=== PATIENT | male | born 1950 | race Caucasian/White ===

== ENCOUNTER 2018-02-28 23:04 | Outpatient (CLI) | payer MEDICARE | END 2018-02-28 23:05 | disposition critical access hospital (66) | LOC: EMS 23:04 | PROVIDERS: ATTEND Surgery | DX: R11.2 Nausea with vomiting, unspecified (principal); R14.0 Abdominal distension (gaseous) | CPT/HCPCS: A0425; A0429 ==

== ENCOUNTER 2018-02-28 23:29 | Inpatient (IN) | payer MEDICARE ==
--- NOTE | 2018-02-28 23:33 | ED Physician Documentation ---
PD HPI ABD PAIN - Stated complaint Stated Complaint: CONSTIPATED - History obtained from History obtained from: Patient, EMS - History of Present Illness Timing - onset: How many days ago (3) Timing - details: Abrupt onset, Still present (progressive bloating and distension of the abdomen), Constant Quality: Cramping, Aching, Pain Location: All over / everywhere Radiation: Lower back. No: Chest, Left flank, Right flank Improved by: Vomiting, Position (knees up on his side). No: Eating Worsened by: Eating, Moving, Position (lying flat or with legs straight), Palpation. No: Breathing Associated symptoms: Nausea, Vomiting (bilious for 3 days), Constipation (firm stools for the past month or so, and had not had BM since the pain started 3 days ago. Tried enema at home without production fo stools.). No: Fever, Hematemesis, Diarrhea Similar symptoms before: Has not had sx before (denies prior abd surgeries. Has constipation at times but has not led to this degree of distension and discomfort.) Recently seen: Not recently seen Review of Systems Constitutional: reports: Myalgias, Fatigue. denies: Fever, Chills Nose: denies: Rhinorrhea / runny nose, Congestion Throat: denies: Sore throat Cardiac: denies: Chest pain / pressure, Palpitations Respiratory: denies: Dyspnea, Cough GI: reports: Abdominal Pain, Abdominal Swelling, Nausea, Vomiting, Constipation. denies: Diarrhea, Hematemesis, Bloody / black stool : denies: Dysuria, Frequency (has had less urination the past 2 days with less oral intake. Trying to drink fluidsa nd soda but has emesis often) Neurologic: reports: Generalized weakness, Focal weakness (since prior CVA with some left weakness since 2008.). denies: Confused, Altered mental status, Headache Psychiatric: denies: Anxiety, Insomnia Endocrine: denies: Easy bruising / bleeding Immunocompromised: denies: Immunocompromised PD PAST MEDICAL HISTORY - Past Medical History Cardiovascular: None Respiratory: None Neuro: CVA Endocrine/Autoimmune: None GI: None : None - Past Surgical History Past Surgical History: No - Allergies Allergies/Adverse Reactions: Allergies Allergy/AdvReac Type Severity Reaction Status Date / Time No Known Drug Allergies Allergy Verified 02/28/18 23:34 - Living Situation Living Situation: reports: With spouse/s.o. Living Arrangement: reports: At home - Social History Does the pt smoke?: Yes Smoking Status: Current every day smoker Does the pt drink ETOH?: No Does the pt have substance abuse?: No - Family History Family history: reports: Non contributory PD ED PE NORMAL - Vitals Vital signs reviewed: Yes - General General: Alert and oriented X 3, No acute distress. No: Well developed/ nourished (this and seems frail. Somewhat unkempt. ) - HEENT HEENT: Atraumatic, PERRL (nonicteric), Pharynx benign. No: Moist mucous membranes - Neck Neck: Supple, no meningeal sign, No adenopathy - Cardiac Cardiac: No: RRR (tachycardic with some frequent PACs and occasional PVCs. ), No murmur - Respiratory Respiratory: Clear bilaterally - Abdomen Abdomen: Other (Very distended abdomen with tympany to percussion. General tenderness. No obvious hernias in inguinal area. ). No: Normal bowel sounds ( tympanitic and loud. ), Soft - Male Male : Other (rectal was minimal soft stool in vault. No obvious impaction. Guiac negative. ) - Rectal Rectal: Other (minimal stool in vault ) - Back Back: No CVA TTP - Derm Derm: Normal color, Warm and dry - Extremities Extremities: No deformity, No tenderness to palpate, No edema, No calf tenderness / cord - Neuro Neuro: Other (left arm and leg with weakness against gravity. ) Results - Vitals Vitals: Vital Signs - 24 hr 02/28/18 02/28/18 03/01/18 23:35 23:39 00:57 Temperature 36.9 C Heart Rate 42 L 68 140 H Respiratory 14 16 Rate Blood Pressure 100/66 98/62 O2 Saturation 95 92 03/01/18 01:01 Temperature Heart Rate 147 H Respiratory Rate Blood Pressure 105/67 O2 Saturation Oxygen O2 Source Room air - EKG (time done) 01:23 Rate: Rate (enter#) (139) Rhythm: Sinus tachycardia [place]: Normal Intervals: Normal IA, Other (frequent PACs/PVcs) QRS: Normal Ischemia: Non specific changes - Labs Labs: Laboratory Tests 03/01/18 03/01/18 03/01/18 00:05 00:05 00:05 WBC 20.8 H RBC 5.65 Hgb 15.6 Hct 46.7 MCV 82.7 MCH 27.6 MCHC 33.3 RDW 16.4 H Plt Count 647 H MPV 7.3 L Neut # 17.7 H Lymph # 1.9 Harvey # 1.1 H Eos # 0.0 Baso # 0.0 Absolute Nucleated RBC 0.00 Nucleated RBC % 0.0 PT INR Sodium 135 Potassium 3.2 L Chloride 87 L Carbon Dioxide 27 Anion Gap 21.0 H BUN 111 H* Creatinine 3.6 H Estimated GFR (MDRD) 17 L Glucose 187 H Lactic Acid 1.6 Calcium 8.9 Magnesium 2.7 Total Bilirubin 1.0 AST 21 ALT 27 Alkaline Phosphatase 63 Total Protein 8.0 Albumin 3.3 Globulin 4.7 H Albumin/Globulin Ratio 0.7 L Lipase 18 L Ethyl Alcohol < 5.0 03/01/18 00:05 WBC RBC Hgb Hct MCV MCH MCHC RDW Plt Count MPV Neut # Lymph # Harvey # Eos # Baso # Absolute Nucleated RBC Nucleated RBC % PT 12.1 INR 1.1 Sodium Potassium Chloride Carbon Dioxide Anion Gap BUN Creatinine Estimated GFR (MDRD) Glucose Lactic Acid Calcium Magnesium Total Bilirubin AST ALT Alkaline Phosphatase Total Protein Albumin Globulin Albumin/Globulin Ratio Lipase Ethyl Alcohol - Rads (name of study) abd CT Radiology: Prelim report reviewed, Discussed with rads (obstruction vs ileus/ pseudoobstruction with transition at splenic flexure but no mass/scarring seen in the area. ), EMP read contemporaneously (bowel obstruction) PD MEDICAL DECISION MAKING - ED course Complexity details: reviewed results, re-evaluated patient, considered differential, d/w patient Departure - Departure Disposition: [facility] DC/Xfer Clinical Impression: Acute renal insufficiency, Dehydration Abdominal pain Qualifiers: Abdominal location: generalized Qualified Code(s): R10.84 - Generalized abdominal pain Vomiting Qualifiers: Vomiting type: bilious vomiting Nausea presence: with nausea Qualified Code(s) : R11.14 - Bilious vomiting Bowel obstruction Qualifiers: Intestinal obstruction type: unspecified Intestinal obstruction extent: complete Qualified Code(s): K56.601 - Complete intestinal obstruction, unspecified as to cause Condition: Stable Record reviewed to determine appropriate education?: Yes
[2018-03-01] MEDS ORDERED: ONDANSETRON 4 MG/2 ML VIAL IVP STA
[2018-03-01] MEDS ORDERED: MORPHINE 10 MG/ML VIAL IVP STA
[2018-03-01] MEDS ORDERED: FAMOTIDINE 20 MG/2 ML VIAL IVP STA
[2018-03-01] MEDS ORDERED: SODIUM CHLORIDE 0.9% 1,000 ML IV ONE ×3 (00:01→01:59)
[2018-03-01 00:25] LABS: WHITE BLOOD COUNT 20.8 x10^3/uL (4.8-10.8)
[2018-03-01 00:30] LABS: BASOPHILS % (AUTO) 0.2 %; EOSINOPHILS % (AUTO) 0.1 %; HGB - HEMOGLOBIN 15.6 g/dL (14.0-18.0); LYMPHOCYTES # (AUTO) 1.9 10^3/uL (1.5-3.5); MEAN CORPUSCULAR HEMOGLOBIN 27.6 pg (27.0-31.0); MEAN CORPUSCULAR HGB CONC 33.3 g/dL (32.0-36.0); MEAN CORPUSCULAR VOLUME 82.7 fL (80.0-94.0); MEAN PLATELET VOLUME 7.3 fL (7.4-11.4); MONOCYTES # (AUTO) 1.1 10^3/uL (0.0-1.0); MONOCYTES % (AUTO) 5.2 %; NEUTROPHILS # (AUTO) 17.7 10^3/uL (1.5-6.6); NEUTROPHILS % (AUTO) 85.5 %; PLT - PLATELET COUNT 647 10^3/uL (130-450); RED BLOOD COUNT 5.65 10^6/uL (4.70-6.10); RED CELL DISTRIBUTION WIDTH 16.4 % (12.0-15.0)
[2018-03-01 00:56] LABS: ALBUMIN 3.3 g/dL (3.2-5.5); ALBUMIN/GLOBULIN RATIO 0.7 (1.0-2.2); ALKALINE PHOSPHATASE 63 IU/L (42-121); ALT ALANINE AMINOTRANSFERASE 27 IU/L (10-60); AST ASPARTATE AMINOTRANSFERASE 21 IU/L (10-42); CALCIUM 8.9 mg/dL (8.5-10.3); CARBON DIOXIDE - CO2 27 mmol/L (21-32); CHLORIDE 87 mmol/L (101-111); CREATININE 3.6 mg/dL (0.6-1.2); GFR - MDRD 17 (>89); GLUCOSE 187 mg/dL (70-100); LIPASE 18 U/L (22-51); MAGNESIUM 2.7 mg/dL (1.7-2.8); SODIUM 135 mmol/L (135-145)
[2018-03-01 00:57] LABS: BUN - BLOOD UREA NITROGEN 111 mg/dL (6-20)
[2018-03-01] MEDS ORDERED: POTASSIUM CHLOR 10 MEQ/100 ML 10 MEQ/100 ML BAG IV ONE (01:02)
[2018-03-01] MEDS ORDERED: MAG HYDROX/AL HYDROX/SIMETH 30 ML UDC PO STA (01:34)
[2018-03-01] MEDS ORDERED: LIDOCAINE VISCOUS 2% 15 ML UDC MM STA (01:34)
[2018-03-01] MEDS ORDERED: AMPICILLIN/SULBACTAM 1.5 GM in SODIUM CHLORIDE 0.9% MINIBAG 100 ML IV STA (02:00)
[2018-03-01] MEDS ORDERED: LIDOCAINE 2% URO-JET 5 ML SYRINGE UR STA (02:04)
[2018-03-01] MEDS ORDERED: MORPHINE 2 MG/ML SYRINGE IVP PRN (02:05)
[2018-03-01] MEDS ORDERED: ONDANSETRON 4 MG/2 ML VIAL IVP PRN (02:05)
[2018-03-01] MEDS ORDERED: PROCHLORPERAZINE 10 MG/2 ML VIAL IVP PRN (02:05)
[2018-03-01] MEDS ORDERED: ONDANSETRON ODT 4 MG TABLET TL PRN (02:05)
[2018-03-01] MEDS ORDERED: LIDOCAINE JELLY 2% 5 ML TUBE TOP STA (02:09)
--- NOTE | 2018-03-01 02:25 | CT Preliminary Report ---
Exam: CT ABDOMEN/PELVIS W/O IMPRESSION: 1. Difficult study due to lack of IV contrast and distended bowel loops. 2. Quite distended small and large bowel to the level of the splenic flexure of the colon. No obstruc ting mass or definitive stricture seen. Suspect diffuse ileus and/or pseudoobstruction. Question medi cation induced superimposed upon chronic dysmotility. No bowel wall thickening or edema seen to sugge st bowel compromise. 3. Distal esophagitis. 4. Mildly obstructing 7 x 5 mm right mid ureteral stone. Extensive bilateral nonobstructing renal sto bam. 5. Subtle abnormal soft tissues density suspected in the right renal collecting system. Follow-up lamont al MRI suggested to exclude urothelial carcinoma. Differential would include high-density urine with proteinaceous debris and/or blood. 6. Urinary bladder stones. Results of recommendations discussed with Dr. Milner. CAMILO SITE ID: [id number]
[2018-03-01 02:38] LABS: INR 1.1 (0.8-1.2); PT - PROTHROMBIN TIME 12.1 secs (9.9-12.6)
--- NOTE | 2018-03-01 02:41 | CT Report ---
EXAM: CT ABDOMEN AND PELVIS EXAM DATE: 03/01/2018 01:32 AM. CLINICAL HISTORY: Abdominal pain and distension for three days. COMPARISONS: None. TECHNIQUE: Routine helical CT imaging was performed through the abdomen and pelvis. IV contrast: No d ue to reported renal failure. Enteric contrast: No. Reconstructions: Coronal and sagittal. In accordance with CT protocol optimization, one or more of the following dose reduction techniques w ere utilized for this exam: automated exposure control, adjustment of mA and/or KV based on patient s ize, or use of iterative reconstructive technique. FINDINGS: Lung Bases: Bilateral scarring/atelectasis. No effusion. Distal esophageal wall edema. Liver: Grossly unremarkable on this non-IV contrast study. Gallbladder/Bile Ducts: Not seen. Spleen: Grossly unremarkable on this non-IV contrast study. Pancreas: Grossly unremarkable on this non-IV contrast study. Adrenal Glands: Possible mild hypertrophy without discrete mass. Kidneys: Severe bilateral nephrolithiasis. There is a mildly obstructing 7 x 5 mm right mid ureteral stone. No definitive left ureteral stone or hydronephrosis. There are numerous layering stones in the left pelvis and calyces posteriorly measuring up to 14 mm. Largest nonobstructing right renal stone measures up to 12 mm at the lower pole. Left renal cysts measure up to more than 7 cm. Question of ab normal soft tissue density within the right renal pelvis extending into the proximal ureter. Peritoneal Cavity/Bowel: Quite distended gas and fluid small and most of the large bowel to the level of the splenic flexure. No mass or inflammatory process seen as cause of an obstruction. No bowel wa ll thickening. No pneumatosis or portal venous gas. No free air or fluid. Pelvic Organs: Small urinary bladder stones measuring up to 5 mm. Prostate mildly enlarged. Vasculature: No aneurysms or other significant abnormality. Bones: Osteopenia without acute abnormality seen. Other: None. IMPRESSION: 1. Difficult study due to a lack of IV contrast and distended bowel loops. 2. Quite distended small and large bowel to the level of the splenic flexure of the colon. No obstruc ting mass or definitive stricture seen. Suspect diffuse ileus and/or pseudoobstruction. Question medi cation-induced superimposed upon chronic dysmotility. No bowel wall thickening or edema seen to sugge st bowel compromise. 3. Distal esophagitis. 4. Mildly obstructing 7 x 5 mm right mid ureteral stone. Extensive bilateral nonobstructing renal sto bam. 5. Subtle abnormal soft tissues density suspected in the right renal collecting system. Follow-up lamont al MRI suggested to exclude urothelial carcinoma. Differential would include high-density urine with proteinaceous debris and/or blood. 6. Urinary bladder stones. Results and recommendations discussed with Dr. Milner. CAMILO Referring Provider Line: [phone] SITE ID: [id number]
[2018-03-01] MEDS ORDERED: PIPERACILLIN/TAZOBACTAM 3.375 GM in SODIUM CHLORIDE 0.9% MINIBAG 100 ML IV SCH (03:00)
[2018-03-01] MEDS: DEXTROSE 5%-0.9% NACL 1,000 ML IV SCH ×3 (03:56→19:24)
[2018-03-01] MEDS: SODIUM CHLORIDE FLUSH 0.9% 10 ML SYRINGE IVP PRN ×3 (03:59→16:11)
--- NOTE | 2018-03-01 04:15 | XRAY Preliminary Report ---
Exam: XR CHEST 1 VIEW X-RAY IMPRESSION: Enteric tube tip in the body of the stomach. RADIA SITE ID: [id number]
--- NOTE | 2018-03-01 04:37 | XRAY Report ---
EXAM: CHEST RADIOGRAPHY EXAM DATE: 03/01/2018 03:25 AM. CLINICAL HISTORY: Nasogastric tube placement. COMPARISON: CT abdomen prior day. TECHNIQUE: 1 view. FINDINGS: Lungs/Pleura: Mild basilar scarring/atelectasis. No overt pneumonia or edema. No gross pneumothorax o r large effusion. Mediastinum: Within exam limitations, the cardiomediastinal contour is normal. Other: Enteric tube tip in the body of the stomach. Severely gaseous upper abdomen again noted. IMPRESSION: Enteric tube tip in the body of the stomach. RADIA Referring Provider Line: [phone] SITE ID: [id number]
--- NOTE | 2018-03-01 05:26 | HISTORY & PHYSICAL EXAMINATION ---
DATE OF SERVICE: 03/01/2018 Physician: Roselia Valerio MD PRIMARY CARE PROVIDER: None. ADMITTING PROVIDER: Roselia Valerio MD CHIEF COMPLAINT: Increasing abdominal distention with nausea and vomiting over the last 3 days. HISTORY OF PRESENT ILLNESS: Patient is disabled because of a stroke that he had in April 2009. It left him with chronic left hip pain because of inability to ambulate, and partial left body weakness. He denies any other medical problems. He used to see LINDA Berrios, in the [facility] for medical care. He left her practice when she accused him of stealing narcotics. He does admit that he has chronic pain and he used to seek narcotics on a regular basis, but since he has had no regular care since 2013, he has not had any medication use since then. He has never had a colonoscopy, and has had no abdominal surgeries. To his knowledge he denies any prostate, GI, problems. He has been getting increasingly constipated over the last few weeks and in the last 3 days he has had increasing distention with inability to defecate. Today, the pain and distention were so bad he came to the emergency room and he was brought in by ambulance. He has been evaluated by Dr. Jovani Milner and patient is mildly tachycardic in the 140s, temperature is 36.9. Blood pressure is 100/66. He is oxygenating well on room air. He is a disheveled, thin male who looks much older than stated age with a distended abdomen and no bowel sounds. He does have an elevated white cell count. CT scan reveals severe bilateral nephrolithiasis with mildly obstructing right mid ureteral stone. No hydronephrosis. Numerous layering stones in the left pelvis and calyces posteriorly. Question of abnormal soft tissue density within the right renal pelvis extending into the proximal ureter. He has distended gas and fluid in the small bowel and most of the large bowel to the level of the splenic flexure. Beyond that, the bowel is decompressed. He has a small urinary bladder stone, mildly enlarged prostate. Signs of distal esophagitis seen. He denies flank pain, fever, chills. Denies any symptoms of prostatism. Dr. Milner spoke to Dr. Collins, General Surgery medical oncologist, who has asked that patient be admitted to our service and he will be seen in the morning. In the meantime, he has requested antibiotics and NG decompression. Patient has had an NG tube placed in the emergency room. PAST MEDICAL HISTORY 1. Stroke in April 2009 with left body Residual. 2. Left hip pain, unknown etiology. 3. Tobacco abuse. 4. History of alcohol abuse with last alcohol intake over a year ago. ALLERGIES: NO KNOWN DRUG ALLERGIES. MEDICATIONS: None. SOCIAL HISTORY: Born in [place], [place]. Came to the [place] in the early . 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 He is to his fifth and they live in their own home, near [place]. Although he has children from his previous marriages, he has not spoken to any of them in over 20 years. He leads a relatively sedentary lifestyle with his in their own home. Started smoking at the age of around 14 and smokes 1 to 1-1/2 packs per day. Last alcohol use was over a year ago. He denies any use of methamphetamines, cannabis, heroin, LSD. Denies any use of IV drugs. FAMILY HISTORY: Both of his parents have . Dad of a ruptured bowel here at [facility]. Mom of lung cancer. He has numerous siblings, but he says that they are all healthy. There is no blood pressure, stroke, cancer, diabetes, thyroid in them. He is unaware of any health history for his kids since he is not in contact with them. REVIEW OF SYSTEMS CONSTITUTIONAL: He denies any recent weight changes, fevers, sweats. ENT: Bad teeth, but denies glaucoma, cataracts, deafness. Denies any problems with swallowing or speech. Denies any allergies, allergic rhinitis symptoms. PULMONARY: Denies coughing, wheezing, chest congestion, hemoptysis. CARDIAC: Denies orthopnea, edema, chest pain, palpitations. Denies any history of murmurs. GASTROINTESTINAL: As above. GENITOURINARY: Specifically denies hematuria, flank pain, dysuria, urinary retention, nocturia. This is all surprising, considering how bad his kidneys look on CT. JOINTS: Left hip pain is constantly hurting, but overall he does not feel like there is any specific joint pain. No recent effusions, change in status. SKIN: Denies any new rashes, bruising, lesions. PSYCHIATRIC: Denies depression, suicidal ideation, anxiety. CENTRAL NERVOUS SYSTEM: Residual left body weakness, maybe some mild cognitive problems, but no seizures, no syncope. PHYSICAL EXAMINATION VITAL SIGNS: He is seen in the ED with temperature of 36.9, pulse 147, blood pressure 105/67, respirations 16 and unlabored, and he is 92% on room air. GENERAL: He is a thin, almost gaunt appearing, white male who has a jimenez, balding, in no acute distress with the NG tube in place. HEAD AND NECK: Dry, dry oral mucosa. Lips are cracked, NG in the nares. Pupils reactive, sclerae nonicteric. Top of his scalp where he is balding has actinic keratoses. No facial asymmetry. Nasal tone of voice with the NG in place. Neck is supple with shotty adenopathy. No goiter, no bruits. LUNGS: Clear to auscultation and percussion with diminished breath sounds at the bases. No increased respiratory effort. CARDIAC: Irregular rate and rhythm that is tachycardic. ABDOMEN: Distended abdomen, tympanitic. No bowel sounds. Mildly to moderately tender diffusely, but no rebound or guarding. EXTREMITIES: Quite thin with decreased muscle mass. No cyanosis or edema. NEUROLOGIC: He seems to be slow with psychomotor process, but he has received medicine in the emergency room for sedation and that could be impacting. He has definite left- sided weakness in comparison to the right dominant strength testing, but he is not hemiplegic. DIAGNOSTIC DATA: EKG with sinus tachycardia and irregular rate. Interpreted as sinus tachycardia with PACs. He has got early R-wave in V2, in comparison to V1 and V3, which may be lead placement issues. Nonspecific ST-T wave changes. Lead III not used for morphology analysis. CAT scan as above in history. Sodium 135, potassium 3.2, BUN 111, creatinine 3.6, random glucose 187. Lactic acid 1.6. Back in 2013, BUN was 15, creatinine 0.9. White cell count is 20.8, hemoglobin 15.6 , hematocrit 46.7, platelets 647. INR is 1.1. Ethyl alcohol less than 5. ASSESSMENT/PLAN 1. Ileus versus bowel obstruction. It appears to be a large bowel obstruction if that is present. Cannot quite delineate a transition point, other than the distal large bowel is decompressed and you can see where the transverse bowel is dilated all the way back up into the small bowel. Differential diagnosis in this man would include cancer. Would be unlikely to be adhesions, as he has never had any previous surgeries. If it is ileus, it may be due to his urinary system and possible infection. Plan: a. Admit to [facility] for inpatient status. b. Attestation: Patient will be admitted less than 96 hours. c. Surgical consult with Dr. Jovani Collins in the morning. d. Start Zosyn single agent therapy. 2. Sinus tachycardia that is quite profound. I looked through the EKG and there are definite P-waves so it's not atrial fibrillation. May be due to severe dehydration, impending sepsis, or cardiac response to such a dilated bowel. We will check troponin. Check lactic acid in 6 hours. Aggressive fluid resuscitation ongoing with 200 mL an hour of normal saline will be maintained. 3. Acute renal failure. Probably a combination of obstruction from stones, even though there is hydronephrosis, as well as prerenal azotemia from severe dehydration. We will recheck labs in the morning once he has received fluid resuscitation. 4. History of stroke with minimal residual strength deficit on the left side of his body. Not on a statin, not on an aspirin, and he does not wish to do so. 5. FULL CODE status. He states that in the event of a cardiac or respiratory arrest, he does want to be intubated, receive chest compressions, and antiarrhythmics. 6. Deep venous thrombosis prophylaxis will be thromboembolic disease hose and sequential compression. TD: 03/01/2018 05:25 KIMBER
[2018-03-01 05:56] LABS: BASOPHILS # (AUTO) 0.1 10^3/uL (0.0-0.1); BASOPHILS % (AUTO) 0.5 %; EOSINOPHILS % (AUTO) 0.1 %; HGB - HEMOGLOBIN 12.5 g/dL (14.0-18.0); LYMPHOCYTES # (AUTO) 1.3 10^3/uL (1.5-3.5); LYMPHOCYTES % (AUTO) 11.6 %; MEAN CORPUSCULAR HEMOGLOBIN 27.4 pg (27.0-31.0); MEAN CORPUSCULAR HGB CONC 32.4 g/dL (32.0-36.0); MEAN CORPUSCULAR VOLUME 84.5 fL (80.0-94.0); MEAN PLATELET VOLUME 6.7 fL (7.4-11.4); MONOCYTES # (AUTO) 0.6 10^3/uL (0.0-1.0); MONOCYTES % (AUTO) 5.4 %; NEUTROPHILS # (AUTO) 9.4 10^3/uL (1.5-6.6); NEUTROPHILS % (AUTO) 82.4 %; PLT - PLATELET COUNT 367 10^3/uL (130-450); RED BLOOD COUNT 4.55 10^6/uL (4.70-6.10); RED CELL DISTRIBUTION WIDTH 16.4 % (12.0-15.0); WHITE BLOOD COUNT 11.4 x10^3/uL (4.8-10.8)
[2018-03-01 06:16] LABS: ALBUMIN 2.5 g/dL (3.2-5.5); ALBUMIN/GLOBULIN RATIO 0.8 (1.0-2.2); CALCIUM 7.1 mg/dL (8.5-10.3); CREATININE 2.4 mg/dL (0.6-1.2); TOTAL PROTEIN 5.8 g/dL (6.7-8.2)
[2018-03-01] MEDS: PANTOPRAZOLE 40 MG VIAL IVP SCH ×2 (07:01→16:11)
[2018-03-01] MEDS ORDERED: CALCIUM GLUCONATE 1,000 MG in SODIUM CHLORIDE 0.9% 50 ML IV ONE (08:23)
[2018-03-01] MEDS: POLYETHYLENE GLYCOL 3350 17 GM PACKET PO SCH (08:25)
[2018-03-01] MEDS: POTASSIUM CHLOR 10 MEQ/100 ML 10 MEQ/100 ML BAG IV SCH ×3 (08:50→12:57)
[2018-03-01] MEDS ORDERED: LIDOCAINE-MPF 2% 5 ML VIAL IM ONE (09:00)
[2018-03-01] MEDS ORDERED: ETOMIDATE 40 MG/20 ML VIAL IVP ONE (09:00)
[2018-03-01] MEDS ORDERED: MIDAZOLAM 2 MG/2 ML VIAL IVP ONE (09:00)
[2018-03-01] MEDS ORDERED: PROPOFOL 200 MG/20 ML VIAL IVP ONE (09:00)
[2018-03-01] MEDS ORDERED: CALCIUM GLUCONATE 1,000 MG in SODIUM CHLORIDE 0.9% 50 ML IV SCH (09:13)
[2018-03-01] MEDS ORDERED: PIPERACILLIN/TAZOBACTAM 2.25 GM in SODIUM CHLORIDE 0.9% MINIBAG 100 ML IV SCH (10:00)
[2018-03-01 10:35] LABS: MUDS CUTOFF CONCENTRATIONS CUTOFF CONC BELOW:
[2018-03-01 10:37] LABS: BILIRUBIN,URINE NEGATIVE (NEGATIVE); GLUCOSE, URINE (UA) NEGATIVE (NEGATIVE); KETONES,URINE (UA) NEGATIVE (NEGATIVE); LEUKOCYTE ESTERASE, URINE TRACE (NEGATIVE); NITRITE,URINE NEGATIVE (NEGATIVE); OCCULT BLOOD,URINE MODERATE (NEGATIVE); PH,URINE 5.5 PH (5.0-7.5); PROTEIN,URINE NEGATIVE (NEGATIVE); UROBILINOGEN,URINE 0.2 (NORMAL) E.U./dL (NORMAL)
[2018-03-01 10:56] LABS: CLARITY,URINE CLEAR (CLEAR)
[2018-03-01 10:57] LABS: BACTERIA,URINE Rare /HPF (None Seen); CASTS, URINE 0-2 Hyaline Casts /LPF; RBC,URINE 0-5 /HPF (0-5); SQUAMOUS EPITHELIAL CELL,UR MOD Squamous (<= Few); WBC CLUMPS,URINE PRESENT
[2018-03-01 10:58] LABS: AMPHETAMINE SCREEN,URINE NEGATIVE (NEGATIVE); BENZODIAZEPINES SCREEN, URINE NEGATIVE (NEGATIVE); COCAINE SCREEN URINE NEGATIVE (NEGATIVE); METHADONE SCREEN, URINE NEGATIVE (NEGATIVE); METHAMPHETAMINES SCREEN, URINE NEGATIVE (NEGATIVE); OPIATE SCREEN, URINE POSITIVE (NEGATIVE); OXYCODONE SCREEN, URINE NEGATIVE (NEGATIVE); PROPOXYPHENE SCREEN, URINE NEGATIVE (NEGATIVE); TRICYCLIC ANTIDEPRESSANT,URINE NEGATIVE (NEGATIVE)
[2018-03-01] MEDS: SODIUM CHLORIDE FLUSH 0.9% 10 ML SYRINGE IVP SCH ×2 (12:56→16:11)
--- NOTE | 2018-03-01 13:15 | CONSULTATION NOTE ---
Referring Provider Name of Referring Provider:: Jovani Milner MD Consult Date: 03/01/18 Chief Complaint - Chief Complaint Chief Complaint: Abdominal pain and distention History of Present Illness - Admitted From Admitted From:: [facility] ED - History Obtained From Records Reviewed: Yes History obtained from: Patient and chart Exam Limitations: None - History of Present Illness HPI Comment/Other: I was called at 0200 today regarding this very pleasant 67 year old male who has had an extensive medical history to evaluate and possibly treat him for a large bowel obstruction. The patient ahs never had a colonoscopy before. The symptoms started approximately 1 week ago and slowly worsened. Prior to this episode both he and his were fans of fiber and coffee and he states that this kept him regular. He denies unexplained weight loss, melena, hematochezia , or hematochezia. History - Past Medical History Cardiovascular: reports: None Respiratory: reports: None Neuro: reports: CVA Endocrine/Autoimmune: reports: None GI: reports: None : reports: None MRSA Hx?: No - Family & Social History Living arrangement: At home Living Situation: With spouse/s.o. Meds/Allgy - Home Medications Home Medications: Ambulatory Orders Medication Instructions Recorded Confirmed No Known Home Medications [No 03/01/18 03/01/18 Known Home Medications] - Allergies Allergies/Adverse Reactions: Allergies Allergy/AdvReac Type Severity Reaction Status Date / Time No Known Drug Allergies Allergy Verified 02/28/18 23:34 Review of Systems - Constitutional Constitutional: denies: Fever, Chills - Ears, Nose & Throat Ears, Nose & Throat: denies: Ear pain - Cardiovascular Cariovascular: denies: Irregular heart rate, Palpitations, Chest pain - Respiratory Respiratory: denies: Cough - Gastrointestinal Gastrointestinal: reports: Abdominal distention. denies: Abdominal pain, Rectal bleeding, Black stools, Bloody stools - Integumentary Integumentary: denies: Rash - Neurological Neurological: denies: General weakness, Focal weakness Exam - Vital Signs Reviewed Vital Signs: Yes Vital Signs: Vital Signs x48h Pulse Pulse BP BP 03/01/18 10:35 116 H 102 H 108/45 L 105/67 - Physical Exam General Appearance: positive: No acute distress (Examined in Room [address] [facility] MS unit.) Eyes Bilateral: positive: No lid inflammation, Conjunctivae nml, No scleral icterus ENT: positive: Dry mucous membranes Neck: positive: Trachea midline, Other (Bearded.) Respiratory: positive: Chest non-tender, Breath sounds nml Cardiovascular: positive: Regular rate & rhythm Abdomen: positive: Other (Significant distention without any pain to deep or superficial palpation. Quiet.) Skin: positive: Color nml Neurologic/Psychiatric: positive: Oriented x3 Conclusion/Plan - Diagnosis Diagnosis: Functional bowel obstruction - Plan Plan: I ordered and we tried to obtain a gastrograffin enema to ensure that there was no blockage but the patient could not tolerate the test x2. Neostygmine should not be given if we cannot PROVE that there is no obstruction. The CT scan does not show a mass or lesion. Colonoscopy is not likely to be helpful without some type of prep. Recommend medical therapy to see whether this will resolve with hydration, increased activity and I think a trial of Reglan may be helpful. This was discussed with patient who vocalized an understanding. 30 minutes of [id number] time ws spent with the patient with the majority of it in discussion - Lab Results Lab results reviewed: Yes Fish Bones: 03/01/18 05:43 03/01/18 05:43 - Diagnostic Imaging Results Diagnostic Imaging Results: positive: Final report reviewed, Discussed with radiologist, Read independently
[2018-03-01] MEDS ORDERED: DIATR MEGLU/DIATRIZOATE SODIUM 120 ML BOTTLE PO ONE (13:36)
[2018-03-01] MEDS: METOCLOPRAMIDE 10 MG TABLET PO SCH ×3 (14:02→20:54)
--- NOTE | 2018-03-01 15:59 | PROVIDER PROGRESS NOTE ---
Assessment/Plan - Problem List (1) Bowel obstruction Qualifiers: Intestinal obstruction type: unspecified Intestinal obstruction extent: complete Qualified Code(s): K56.601 - Complete intestinal obstruction, unspecified as to cause Assessment/Plan: Pt appears to be suffering either from a LBO in the region of the splenic flexure or a pseudoobstruction syndrome. No evidence of volvulus per CT. Plan: continue bowel rest, IVF, metoclopromide, and then colonoscopy in am for dx and possibly therapy(decompression of pseudoobstruction if present). PAR conference with pt and consent obtained. Discussed possible need for surgery to relieve the obstruction if present; pt not sure he wishes to proceed with surgery at this time, but is willing to have the colonoscopy tomorrow. - Current Meds Current Meds: Current Medications Generic Name Dose Route Start Last Admin Trade Name Freq PRN Reason Stop Dose Admin Dextrose/Sodium Chloride 1,000 mls @ 125 mls/hr 03/01/18 03:00 03/01/18 07:31 D5ns IV 125 mls/hr .Q8H [facility] Infusion Metoclopramide HCl 10 mg 03/01/18 14:00 03/01/18 14:02 Reglan PO 10 mg ACHS [facility] Administration Pantoprazole Sodium 40 mg 03/01/18 07:00 03/01/18 07:01 Protonix IVP 40 mg BIDAC [facility] Administration Polyethylene Glycol 17 gm 03/01/18 09:00 03/01/18 08:25 Miralax PO 17 gm DAILY [facility] Administration Sodium Chloride 10 ml 03/01/18 02:05 03/01/18 07:01 Normal Saline Flush 0.9% IVP 10 ml PRN PRN Administration NEEDED PER PROVIDER ORDERS Sodium Chloride 10 ml 03/01/18 09:00 03/01/18 12:56 Normal Saline Flush 0.9% IVP 10 ml 0100,0900,1700 [facility] Administration - Lab Result Fish Bone Diagrams: 03/01/18 05:43 03/01/18 05:43 - Diagnostic Imaging Results Diagnostic Imaging Results: Discussed with radiologist, Read independently Diagnostic Imaging Results Comments: dilated small and large bowel down to splenic flexure; colon decompressed distal. No mass/tumor identified; no volvulus identified. - Additional Planning Condition/Complexity: Stable My Orders: My Active Orders 03/01/18 15:52 Miscellaenous Nursing Order [RC] QSHIFT 03/02/18 06:00 Abdomen 2 View X-Ray [XR] Routine 03/02/18 07:00 Saline Enema [Fleets Saline Enema] 133 ml RC ONCE Plan Discussed with:: Patient Time Spent: 31-60 minutes (including chart review and discussions with radiologist, hospitalist and patient.) Subjective - Subjective Patient Reports: Feeling Better (reports N/V have resolved; NG tube "accidentally" came out; doesnt want it replaced; no flatus or stool for several days; denies abd pain.), Resting Comfortably, No Complaints Objective Vital Signs: Vital Signs - 24 hr 03/01/18 03/01/18 03/01/18 03:42 03:45 10:35 Temperature 36.5 C Heart Rate 116 H Heart Rate [ 105 H Radial] Heart Rate [ 116 H Sitting] Heart Rate [ 102 H Supine] Respiratory 14 20 Rate Blood Pressure 103/91 H Blood Pressure 129/59 L [Right Brachial artery] Blood Pressure 108/45 L [Sitting] Blood Pressure 105/67 [Supine] O2 Saturation 94 94 Oxygen O2 Source Room air I&O (Last 24 Hrs): Intake and Output Totals x24h 02/27/18 02/28/18 03/01/18 23:59 23:59 23:59 Intake Total 3167.917 Output Total 250 Balance 2917.917 General: Alert, No acute distress Abdomen: Soft, No tenderness, Other (hyperactive tympanitic bowel sounds, markedly distended but soft, nontender, no peritoneal signs.) - Results Results: Laboratory Results WBC 11.4 x10^3/uL (4.8-10.8) H 03/01/18 05:43 RBC 4.55 10^6/uL (4.70-6.10) L 03/01/18 05:43 Hgb 12.5 g/dL (14.0-18.0) L 03/01/18 05:43 Hct 38.5 % (42.0-52.0) L 03/01/18 05:43 MCV 84.5 fL (80.0-94.0) 03/01/18 05:43 MCH 27.4 pg (27.0-31.0) 03/01/18 05:43 MCHC 32.4 g/dL (32.0-36.0) 03/01/18 05:43 RDW 16.4 % (12.0-15.0) H 03/01/18 05:43 Plt Count 367 10^3/uL (130-450) 03/01/18 05:43 MPV 6.7 fL (7.4-11.4) L 03/01/18 05:43 Neut # 9.4 10^3/uL (1.5-6.6) H 03/01/18 05:43 Lymph # 1.3 10^3/uL (1.5-3.5) L 03/01/18 05:43 [place] # 0.6 10^3/uL (0.0-1.0) 03/01/18 05:43 Eos # 0.0 10^3/uL (0.0-0.7) 03/01/18 05:43 Baso # 0.1 10^3/uL (0.0-0.1) 03/01/18 05:43 Absolute Nucleated RBC 0.00 x10^3/uL 03/01/18 05:43 Nucleated RBC % 0.0 /100WBC 03/01/18 05:43 PT 12.1 secs (9.9-12.6) 03/01/18 00:05 INR 1.1 (0.8-1.2) 03/01/18 00:05 Sodium 138 mmol/L (135-145) 03/01/18 05:43 Potassium 3.2 mmol/L (3.5-5.0) L 03/01/18 05:43 Chloride 102 mmol/L (101-111) 03/01/18 05:43 Carbon Dioxide 24 mmol/L (21-32) 03/01/18 05:43 Anion Gap 12.0 (6-13) 03/01/18 05:43 BUN 94 mg/dL (6-20) H* 03/01/18 05:43 Creatinine 2.4 mg/dL (0.6-1.2) H 03/01/18 05:43 Estimated GFR (MDRD) 27 (>89) L 03/01/18 05:43 Glucose 161 mg/dL (70-100) H 03/01/18 05:43 Lactic Acid 0.9 mmol/L (0.5-2.2) 03/01/18 05:43 Calcium 7.1 mg/dL (8.5-10.3) L 03/01/18 05:43 Magnesium 2.7 mg/dL (1.7-2.8) 03/01/18 00:05 Total Bilirubin 1.0 mg/dL (0.2-1.0) 03/01/18 05:43 AST 17 IU/L (10-42) 03/01/18 05:43 ALT 20 IU/L (10-60) 03/01/18 05:43 Alkaline Phosphatase 44 IU/L (42-121) 03/01/18 05:43 Total Protein 5.8 g/dL (6.7-8.2) L 03/01/18 05:43 Albumin 2.5 g/dL (3.2-5.5) L 03/01/18 05:43 Globulin 3.3 g/dL (2.1-4.2) 03/01/18 05:43 Albumin/Globulin Ratio 0.8 (1.0-2.2) L 03/01/18 05:43 Lipase 18 U/L (22-51) L 03/01/18 00:05 Urine Color YELLOW 03/01/18 09:07 Urine Clarity CLEAR (CLEAR) 03/01/18 09:07 Urine pH 5.5 PH (5.0-7.5) 03/01/18 09:07 Ur Specific [place] 1.015 (1.002-1.030) 03/01/18 09:07 Urine Protein NEGATIVE mg/dL (NEGATIVE) 03/01/18 09:07 Urine Glucose (UA) NEGATIVE mg/dL (NEGATIVE) 03/01/18 09:07 Urine Ketones NEGATIVE mg/dL (NEGATIVE) 03/01/18 09:07 Urine Occult Blood MODERATE (NEGATIVE) H 03/01/18 09:07 Urine Nitrite NEGATIVE (NEGATIVE) 03/01/18 09:07 Urine Bilirubin NEGATIVE (NEGATIVE) 03/01/18 09:07 Urine Urobilinogen 0.2 (NORMAL) E.U./dL (NORMAL) 03/01/18 09:07 Ur Leukocyte Esterase TRACE (NEGATIVE) H 03/01/18 09:07 Urine RBC 0-5 /HPF (0-5) 03/01/18 09:07 Urine WBC 11-25 /HPF (0-3) H 03/01/18 09:07 Urine WBC Clumps PRESENT 03/01/18 09:07 Ur Squamous Epith Cells MOD Squamous (<= Few) H 03/01/18 09:07 Urine Bacteria Rare /HPF (None Seen) 03/01/18 09:07 Urine Casts 0-2 Hyaline Casts /LPF 03/01/18 09:07 Ur Microscopic Review INDICATED 03/01/18 09:07 Urine Culture Comments NOT INDICATED 03/01/18 09:07 Urine Opiates Screen POSITIVE (NEGATIVE) H 03/01/18 09:07 Ur Oxycodone Screen NEGATIVE (NEGATIVE) 03/01/18 09:07 Urine Methadone Screen NEGATIVE (NEGATIVE) 03/01/18 09:07 Ur Propoxyphene Screen NEGATIVE (NEGATIVE) 03/01/18 09:07 Ur Barbiturates Screen NEGATIVE (NEGATIVE) 03/01/18 09:07 Ur Tricyclics Screen NEGATIVE (NEGATIVE) 03/01/18 09:07 Ur Phencyclidine Scrn NEGATIVE (NEGATIVE) 03/01/18 09:07 Ur Amphetamine Screen NEGATIVE (NEGATIVE) 03/01/18 09:07 U Methamphetamines Scrn NEGATIVE (NEGATIVE) 03/01/18 09:07 U Benzodiazepines Scrn NEGATIVE (NEGATIVE) 03/01/18 09:07 Urine Cocaine Screen NEGATIVE (NEGATIVE) 03/01/18 09:07 U Cannabinoids Screen NEGATIVE (NEGATIVE) 03/01/18 09:07 Ethyl Alcohol < 5.0 mg/dL 03/01/18 00:05 ABX Reporting Has patient been on IV antibiotics over the past 48 hours?: Yes
--- NOTE | 2018-03-01 17:14 | PROVIDER PROGRESS NOTE ---
Subjective - Prog Note Date Prog Note Date: 03/01/18 - Subjective Pt reports feeling: No change Subjective: pt pulled out his NG by himself, state he did not have more vomiting. Pt still complains some abdominal pain. No bowel movement. No chest pain or SOB Current Medications - Current Medications Current Medications: Active Medications Dextrose/Sodium Chloride (D5ns) 1,000 mls @ 125 mls/hr IV .Q8H [facility] Last Infusion: 03/01/18 07:31 Dose: 125 mls/hr Piperacillin Sod/Tazobactam (Sod 2.25 gm/ Sodium Chloride) 100 mls @ 200 mls/ hr IV Q6H [facility] Metoclopramide HCl (Reglan) 10 mg PO ACHS [facility] Last Admin: 03/01/18 16:11 Dose: 10 mg Morphine Sulfate (Morphine) 2 mg IVP Q2H PRN PRN Reason: Pain 8 to 10 Ondansetron HCl (Zofran Inj) 4 mg IVP Q6HR PRN PRN Reason: Nausea / Vomiting Ondansetron HCl (Zofran Odt) 4 mg TL Q6HR PRN PRN Reason: Nausea / Vomiting Pantoprazole Sodium (Protonix) 40 mg IVP BIDAC [facility] Last Admin: 03/01/18 16:11 Dose: 40 mg Polyethylene Glycol (Miralax) 17 gm PO DAILY [facility] Last Admin: 03/01/18 08:25 Dose: 17 gm Prochlorperazine Edisylate (Compazine Inj) 10 mg IVP Q6HR PRN PRN Reason: Nausea / Vomiting Sodium Biphosphate/Sodium Phosphate (Fleets Saline Enema) 133 ml RC ONCE [facility] Stop: 03/02/18 19:00 Sodium Chloride (Normal Saline Flush 0.9%) 10 ml IVP PRN PRN PRN Reason: NEEDED PER PROVIDER ORDERS Last Admin: 03/01/18 16:11 Dose: 10 ml Sodium Chloride (Normal Saline Flush 0.9%) 10 ml IVP 0100,0900,1700 [facility] Last Admin: 03/01/18 16:11 Dose: 10 ml No Known Home Medications [No Known Home Medications] 03/01/18 Objective - Vital Signs/Intake & Output Reviewed Vital Signs: Yes Vital Signs: Vital Signs x48h Temp Pulse Pulse Pulse Resp BP BP 03/01/18 16:00 36.7 C 93 20 109/55 L 03/01/18 10:35 116 H 102 H 108/45 L BP Pulse Ox 03/01/18 16:00 98 03/01/18 10:35 105/67 Intake & Output: Intake & Output 02/26/18 02/27/18 02/28/18 03/01/18 23:59 23:59 23:59 23:59 Intake Total 3167.917 Output Total 450 Balance 2717.917 - Objective General Appearance: positive: No acute distress, Alert. negative: Lethargic Eyes Bilateral: positive: Normal inspection, PERRL, No lid inflammation, Conjunctivae nml ENT: positive: ENT inspection nml, Pharynx nml, No signs of dehydration. negative: Purulent nasal drainage, Pharyngeal erythema, Oral lesions Neck: positive: Nml inspection, Thyroid nml, No JVD, Trachea midline. negative : Thyromegaly, Lymphadenopathy (R), Lymphadenopathy (L), Stiff neck, Carotid bruit, Swelling/bruising, Tracheal deviation Respiratory: positive: Chest non-tender, No respiratory distress, Breath sounds nml. negative: Wheezes, Rales, Rhonchi Cardiovascular: positive: Regular rate & rhythm, No murmur, No gallop. negative : Irregularly irregular, Extrasystoles, Tachycardia, Bradycardia, Systolic murmur, Diastolic murmur Peripheral Pulses: 2+ Radial (R), 2+ Radial (L), 2+ Dorsalis pedis (R), 2+ Dorsalis pedis (L) Abdomen: positive: Non-tender, Other (hyperactive bowel sound, soft, distention abdomen). negative: Tenderness, Guarding, Rebound Back: positive: Nml inspection. negative: CVA tenderness (R), CVA tenderness (L ) Skin: positive: Color nml, No rash, Warm, Dry. negative: Cyanosis, Diaphoresis , Pallor Extremities: positive: Non-tender, Full ROM, Nml appearance. negative: Calf tenderness, Joint swelling, Lily's sign/cords Neurologic/Psychiatric: positive: Sensation nml. negative: Sensory loss, Facial droop, Slurred/abnml speech, Depressed mood/affect - Lab Results Fish Bones: 03/01/18 05:43 03/01/18 05:43 Other Labs: Lab Results x24hrs 03/01/18 03/01/18 03/01/18 Range/Units 09:07 05:43 05:43 WBC (4.8-10.8) x10^3/uL RBC (4.70-6.10) 10^6/uL Hgb (14.0-18.0) g/dL Hct (42.0-52.0) % MCV (80.0-94.0) fL MCH (27.0-31.0) pg MCHC (32.0-36.0) g/dL RDW (12.0-15.0) % Plt Count (130-450) 10^3/uL MPV (7.4-11.4) fL Neut # (1.5-6.6) 10^3/uL Lymph # (1.5-3.5) 10^3/uL [place] # (0.0-1.0) 10^3/uL Eos # (0.0-0.7) 10^3/uL Baso # (0.0-0.1) 10^3/uL Absolute Nucleated RBC x10^3/uL Nucleated RBC % /100WBC Sodium 138 (135-145) mmol/L Potassium 3.2 L (3.5-5.0) mmol/L Chloride 102 (101-111) mmol/L Carbon Dioxide 24 (21-32) mmol/L Anion Gap 12.0 (6-13) BUN 94 H* (6-20) mg/dL Creatinine 2.4 H (0.6-1.2) mg/dL Estimated GFR (MDRD) 27 L (>89) Glucose 161 H (70-100) mg/dL Lactic Acid 0.9 (0.5-2.2) mmol/L Calcium 7.1 L (8.5-10.3) mg/dL Total Bilirubin 1.0 (0.2-1.0) mg/dL AST 17 (10-42) IU/L ALT 20 (10-60) IU/L Alkaline Phosphatase 44 (42-121) IU/L Total Protein 5.8 L (6.7-8.2) g/dL Albumin 2.5 L (3.2-5.5) g/dL Globulin 3.3 (2.1-4.2) g/dL Albumin/Globulin Ratio 0.8 L (1.0-2.2) Urine Color YELLOW Urine Clarity CLEAR (CLEAR) Urine pH 5.5 (5.0-7.5) PH Ur Specific [place] 1.015 (1.002-1.030) Urine Protein NEGATIVE (NEGATIVE) mg/dL Urine Glucose (UA) NEGATIVE (NEGATIVE) mg/dL Urine Ketones NEGATIVE (NEGATIVE) mg/dL Urine Occult Blood MODERATE H (NEGATIVE) Urine Nitrite NEGATIVE (NEGATIVE) Urine Bilirubin NEGATIVE (NEGATIVE) Urine Urobilinogen 0.2 (NORMAL) (NORMAL) E.U./dL Ur Leukocyte Esterase TRACE H (NEGATIVE) Urine RBC 0-5 (0-5) /HPF Urine WBC 11-25 H (0-3) /HPF Urine WBC Clumps PRESENT Ur Squamous Epith Cells MOD Squamous H (<= Few) Urine Bacteria Rare (None Seen) /HPF Urine Casts 0-2 Hyaline Casts /LPF Ur Microscopic Review INDICATED Urine Culture Comments NOT INDICATED Urine Opiates Screen POSITIVE H (NEGATIVE) Ur Oxycodone Screen NEGATIVE (NEGATIVE) Urine Methadone Screen NEGATIVE (NEGATIVE) Ur Propoxyphene Screen NEGATIVE (NEGATIVE) Ur Barbiturates Screen NEGATIVE (NEGATIVE) Ur Tricyclics Screen NEGATIVE (NEGATIVE) Ur Phencyclidine Scrn NEGATIVE (NEGATIVE) Ur Amphetamine Screen NEGATIVE (NEGATIVE) U Methamphetamines Scrn NEGATIVE (NEGATIVE) U Benzodiazepines Scrn NEGATIVE (NEGATIVE) Urine Cocaine Screen NEGATIVE (NEGATIVE) U Cannabinoids Screen NEGATIVE (NEGATIVE) 03/01/18 Range/Units 05:43 WBC 11.4 H (4.8-10.8) x10^3/uL RBC 4.55 L (4.70-6.10) 10^6/uL Hgb 12.5 L (14.0-18.0) g/dL Hct 38.5 L (42.0-52.0) % MCV 84.5 (80.0-94.0) fL MCH 27.4 (27.0-31.0) pg MCHC 32.4 (32.0-36.0) g/dL RDW 16.4 H (12.0-15.0) % Plt Count 367 (130-450) 10^3/uL MPV 6.7 L (7.4-11.4) fL Neut # 9.4 H (1.5-6.6) 10^3/uL Lymph # 1.3 L (1.5-3.5) 10^3/uL [place] # 0.6 (0.0-1.0) 10^3/uL Eos # 0.0 (0.0-0.7) 10^3/uL Baso # 0.1 (0.0-0.1) 10^3/uL Absolute Nucleated RBC 0.00 x10^3/uL Nucleated RBC % 0.0 /100WBC Sodium (135-145) mmol/L Potassium (3.5-5.0) mmol/L Chloride (101-111) mmol/L Carbon Dioxide (21-32) mmol/L Anion Gap (6-13) BUN (6-20) mg/dL Creatinine (0.6-1.2) mg/dL Estimated GFR (MDRD) (>89) Glucose (70-100) mg/dL Lactic Acid (0.5-2.2) mmol/L Calcium (8.5-10.3) mg/dL Total Bilirubin (0.2-1.0) mg/dL AST (10-42) IU/L ALT (10-60) IU/L Alkaline Phosphatase (42-121) IU/L Total Protein (6.7-8.2) g/dL Albumin (3.2-5.5) g/dL Globulin (2.1-4.2) g/dL Albumin/Globulin Ratio (1.0-2.2) Urine Color Urine Clarity (CLEAR) Urine pH (5.0-7.5) PH Ur Specific [place] (1.002-1.030) Urine Protein (NEGATIVE) mg/dL Urine Glucose (UA) (NEGATIVE) mg/dL Urine Ketones (NEGATIVE) mg/dL Urine Occult Blood (NEGATIVE) Urine Nitrite (NEGATIVE) Urine Bilirubin (NEGATIVE) Urine Urobilinogen (NORMAL) E.U./dL Ur Leukocyte Esterase (NEGATIVE) Urine RBC (0-5) /HPF Urine WBC (0-3) /HPF Urine WBC Clumps Ur Squamous Epith Cells (<= Few) Urine Bacteria (None Seen) /HPF Urine Casts /LPF Ur Microscopic Review Urine Culture Comments Urine Opiates Screen (NEGATIVE) Ur Oxycodone Screen (NEGATIVE) Urine Methadone Screen (NEGATIVE) Ur Propoxyphene Screen (NEGATIVE) Ur Barbiturates Screen (NEGATIVE) Ur Tricyclics Screen (NEGATIVE) Ur Phencyclidine Scrn (NEGATIVE) Ur Amphetamine Screen (NEGATIVE) U Methamphetamines Scrn (NEGATIVE) U Benzodiazepines Scrn (NEGATIVE) Urine Cocaine Screen (NEGATIVE) U Cannabinoids Screen (NEGATIVE) ABX Reporting Has patient been on IV antibiotics over the past 48 hours?: Yes Assessment/Plan - Problem List (1) Bowel obstruction Impression: consult with surgeon, will follow up add reglan, per surgeon's suggestion, stimulate bowel movement, closely monitor surgeon plan colonoscopy for pt on tomorrow, will follow up Qualifiers: Intestinal obstruction type: unspecified Intestinal obstruction extent: complete Qualified Code(s): K56.601 - Complete intestinal obstruction, unspecified as to cause (2) Acute renal insufficiency Impression: CT of abdomen reveals no hydronephrosis. it appear azotemia, hypovolume. IVF continue lab test avoid nephrological toxic agents (3) History of CVA with residual deficit Impression: pt with left side weakness deficit from remote CVA stable, no new focus neuro deficit reported PT/OT follow up resume home meds (4) Lymphocytosis Impression: WBC is going down significantly, pt is with possible SBO, infection is concerned continue low dosage of Zosyn, in the acute renal injury daily lab and vital monitor
--- NOTE | 2018-03-01 17:38 | XRAY Report ---
ATTEMPTED SINGLE CONTRAST BARIUM ENEMA: 03/01/2018 CLINICAL INDICATION: Dilated large bowel, question obstruction. FINDINGS: Gastrografin enema was attempted twice. The patient was unable to retain contrast. The visualized sigmoid colon appears unremarkable. IMPRESSION: UNSUCCESSFUL SINGLE CONTRAST ENEMA, THE PATIENT COULD NOT RETAIN CONTRAST. FLUOROSCOPY TIME: 65 seconds; 4 spot images. TD: 03/01/2018 17:37
[2018-03-01] MEDS: PIPERACILLIN/TAZOBACTAM 2.25 GM in SODIUM CHLORIDE 0.9% MINIBAG 100 ML IV SCH (18:23)
[2018-03-01] MEDS: MIN OIL/DIMETHICON/COCONUT OIL 92 GM TUBE TOP PRN (22:03)
[2018-03-02] MEDS: SODIUM CHLORIDE FLUSH 0.9% 10 ML SYRINGE IVP SCH ×3 (00:01→16:10)
[2018-03-02] MEDS: PIPERACILLIN/TAZOBACTAM 2.25 GM in SODIUM CHLORIDE 0.9% MINIBAG 100 ML IV SCH ×4 (00:42→19:08)
[2018-03-02] MEDS: DEXTROSE 5%-0.9% NACL 1,000 ML IV SCH (01:59)
[2018-03-02 05:18] LABS: BASOPHILS % (AUTO) 0.1 %; EOSINOPHILS # (AUTO) 0.1 10^3/uL (0.0-0.7); EOSINOPHILS % (AUTO) 1.3 %; HGB - HEMOGLOBIN 12.2 g/dL (14.0-18.0); LYMPHOCYTES # (AUTO) 1.2 10^3/uL (1.5-3.5); LYMPHOCYTES % (AUTO) 15.6 %; MEAN CORPUSCULAR HEMOGLOBIN 27.3 pg (27.0-31.0); MEAN CORPUSCULAR HGB CONC 31.7 g/dL (32.0-36.0); MEAN CORPUSCULAR VOLUME 86.2 fL (80.0-94.0); MONOCYTES # (AUTO) 0.5 10^3/uL (0.0-1.0); MONOCYTES % (AUTO) 6.9 %; NEUTROPHILS # (AUTO) 5.9 10^3/uL (1.5-6.6); NEUTROPHILS % (AUTO) 76.1 %; PLT - PLATELET COUNT 352 10^3/uL (130-450); RED BLOOD COUNT 4.47 10^6/uL (4.70-6.10); RED CELL DISTRIBUTION WIDTH 16.8 % (12.0-15.0); WHITE BLOOD COUNT 7.8 x10^3/uL (4.8-10.8)
[2018-03-02 05:27] LABS: CALCIUM 7.9 mg/dL (8.5-10.3); CREATININE 1.8 mg/dL (0.6-1.2)
[2018-03-02] MEDS: SODIUM CHLORIDE FLUSH 0.9% 10 ML SYRINGE IVP PRN ×3 (06:37→16:11)
[2018-03-02] MEDS: PANTOPRAZOLE 40 MG VIAL IVP SCH ×2 (06:37→16:10)
[2018-03-02] MEDS: METOCLOPRAMIDE 10 MG TABLET PO SCH ×2 (06:37→10:47)
[2018-03-02] MEDS ORDERED: SALINE ENEMA 133 ML BOTTLE RC SCH (07:00)
[2018-03-02] MEDS: POLYETHYLENE GLYCOL 3350 17 GM PACKET PO SCH (07:49)
[2018-03-02] MEDS: D5.45NS W/20 MEQ KCL 1,000 ML IV SCH ×2 (08:04→21:54)
[2018-03-02] MEDS: POTASSIUM CHLOR 10 MEQ/100 ML 10 MEQ/100 ML BAG IV SCH ×2 (08:05→10:59)
--- NOTE | 2018-03-02 08:21 | XRAY Preliminary Report ---
Exam: XR ABDOMEN 2 VIEW X-RAY IMPRESSION: 1. Markedly distended small bowel. Small bowel obstruction is not excluded. No free air. 2. Subsegmental atelectasis at left lung base and mild bilateral vascular and interstitial prominence in the lungs. [facility] SITE ID: [id number]
--- NOTE | 2018-03-02 08:21 | XRAY Report ---
EXAM: ABDOMEN RADIOGRAPHY EXAM DATE: 03/02/2018 07:46 AM. CLINICAL HISTORY: Abd distention poss LBO vs pseudoobstruction. COMPARISON: CT 03/01/2018. TECHNIQUE: 2 views. FINDINGS: Lung Bases: Probable subsegmental atelectasis at left lung base. Heart size normal. Mild nonspecific interstitial prominence at lung bases. Bowel Gas Pattern: Markedly distended air-filled small bowel. Contracted descending colon. Remainder of colon does not appear grossly distended. Free Air: None. Other: None. IMPRESSION: 1. Markedly distended small bowel. Small bowel obstruction is not excluded. No free air. 2. Subsegmental atelectasis at left lung base and mild bilateral vascular and interstitial prominence in the lungs. [facility] Referring Provider Line: [phone] SITE ID: [id number]
[2018-03-02] MEDS ORDERED: LACTATED RINGERS 1,000 ML IV ONE (09:17)
--- NOTE | 2018-03-02 10:11 | PROCEDURE REPORT ---
Hospitalist Procedure Note - Procedure Note Procedure Note: See printed official report; Colonoscopy showed minimal stool throughout the colon, one small rectal polyp, no evidence of LBO; no tumor or volvulus. Findings now consistent with pseudo obstruction syndrome vs high grade distal SBO. Rec: gastrograffin SBFT.
[2018-03-02] MEDS ORDERED: DIATR MEGLU/DIATRIZOATE SODIUM 120 ML BOTTLE PO ONE (11:00)
[2018-03-02] MEDS ORDERED: PIPERACILLIN/TAZOBACTAM 2.25 GM in SODIUM CHLORIDE 0.9% MINIBAG 100 ML IV SCH (14:00)
--- NOTE | 2018-03-02 14:27 | XRAY Report ---
EXAM: ABDOMEN RADIOGRAPHY EXAM DATE: 03/02/2018 12:40 PM. CLINICAL HISTORY: Evaluate for SBO vs ileus. COMPARISON: 03/02/2018, 03/01/2018. TECHNIQUE: 1 view, portable upright. Gastrografin was injected through the enteric tube. FINDINGS: Bowel Gas Pattern: Marked small bowel dilation without dilated colon as well. Other: Small amount of pneumoperitoneum under the right hemidiaphragm, not seen on prior exams. IMPRESSION: Small amount of pneumoperitoneum under the right hemidiaphragm, new from prior and suspic ious for perforation. Unchanged extensive small bowel dilation. [facility] The above findings were discussed with Dr. Camarillo by Dr. Chano Alicia at 14:26 hrs on 03/02/18. Referring Provider Line: [phone] SITE ID: [id number]
--- NOTE | 2018-03-02 15:39 | PROVIDER PROGRESS NOTE ---
Assessment/Plan - Problem List (1) Bowel obstruction Qualifiers: Intestinal obstruction type: unspecified Intestinal obstruction extent: complete Qualified Code(s): K56.601 - Complete intestinal obstruction, unspecified as to cause Assessment/Plan: Appears most consistent with ileus/pseudoobstruction syndrome; clinically starting to improve following colonoscopy and NG suction. No clinical evidence for perforation/peritonitis at present. Rec: continue present management; correct electrolyte imbalances, serial abd exams, repeat plain films later today. - Current Meds Current Meds: Current Medications Generic Name Dose Route Start Last Admin Trade Name Freq PRN Reason Stop Dose Admin Piperacillin Sod/Tazobactam 100 mls @ 200 mls/hr 03/01/18 19:00 03/02/18 14: 37 Sod 2.25 gm/ Sodium Chloride IV Infused Q6H TOOTIE Infusion Potassium Chloride/Dextrose/Sod Cl 1,000 mls @ 100 mls/hr 03/02/18 08:00 03/15 14:37 D5.45ns W/20 Meq Kcl IV 100 mls/hr .Q10H TOOTIE Infusion Mineral Oil 1 applic 03/01/18 19:42 03/01/18 22:03 Cavilon TOP 1 applic PRN PRN Administration Skin Care Pantoprazole Sodium 40 mg 03/01/18 07:00 03/02/18 06:37 Protonix IVP 40 mg BIDAC TOOTEI Administration Polyethylene Glycol 17 gm 03/01/18 09:00 03/02/18 07:49 Miralax PO Not Given DAILY TOOTIE Sodium Biphosphate/Sodium Phosphate 133 ml 03/02/18 07:00 03/02/18 06:37 Fleets Saline Enema RC 03/02/18 19:00 133 ml ONCE TOOTIE Administration Sodium Chloride 10 ml 03/01/18 02:05 03/02/18 14:14 Normal Saline Flush 0.9% IVP 30 ml PRN PRN Administration NEEDED PER PROVIDER ORDERS Sodium Chloride 10 ml 03/01/18 09:00 03/02/18 08:05 Normal Saline Flush 0.9% IVP 10 ml 0100,0900,1700 TOOTIE Administration - Lab Result Fish Bone Diagrams: 03/02/18 04:40 03/02/18 04:40 - Additional Planning My Orders: My Active Orders 03/02/18 07:00 Saline Enema [Fleets Saline Enema] 133 ml RC ONCE 03/02/18 10:05 NG Tube Care [RC] Q4HR 03/02/18 10:33 Miscellaenous Nursing Order [RC] QSHIFT Subjective - Subjective Patient Reports: Feeling Better, Resting Comfortably, No Complaints (Pt feels better, denies abd pain, N/V; now passing flatus.) Objective Vital Signs: Vital Signs - 24 hr 03/01/18 03/02/18 03/02/18 16:00 00:00 08:00 Temperature 36.7 C 37.3 C 36.5 C Heart Rate [ 93 85 77 Radial] Respiratory 20 18 14 Rate Blood Pressure 109/55 L 111/60 107/53 L [Right Brachial artery] O2 Saturation 98 98 96 03/02/18 03/02/18 03/02/18 10:05 10:10 10:15 Temperature Heart Rate [ Radial] Respiratory Rate Blood Pressure [Right Brachial artery] O2 Saturation 100 100 94 03/02/18 03/02/18 03/02/18 10:20 10:27 10:38 Temperature 36.6 C Heart Rate [ 87 Radial] Respiratory 17 Rate Blood Pressure 107/39 L [Right Brachial artery] O2 Saturation 94 93 94 03/02/18 15:26 Temperature 36.2 C L Heart Rate [ 98 Radial] Respiratory 19 Rate Blood Pressure 123/67 [Right Brachial artery] O2 Saturation 96 Oxygen O2 Source Room air I&O (Last 24 Hrs): Intake and Output Totals x24h 02/28/18 03/01/18 03/02/18 23:59 23:59 23:59 Intake Total 4657.084 1975.000 Output Total 800 800 Balance 3857.084 1175.000 General: Alert, Oriented x3, Cooperative, No acute distress Neuro: Alert Abdomen: Soft, No tenderness, No hepatospenomegaly, No masses Comments/Notes: Pt had colonoscopy this am showing no evidence of LBO; NG tube inserted and gastrograffin administered for dx and or possible therapy of SBO if present. First xray 2 hours later shows possible small amount of free air under right hemidiaphragm. - Results Results: Laboratory Results WBC 7.8 x10^3/uL (4.8-10.8) 03/02/18 04:40 RBC 4.47 10^6/uL (4.70-6.10) L 03/02/18 04:40 Hgb 12.2 g/dL (14.0-18.0) L 03/02/18 04:40 Hct 38.5 % (42.0-52.0) L 03/02/18 04:40 MCV 86.2 fL (80.0-94.0) 03/02/18 04:40 MCH 27.3 pg (27.0-31.0) 03/02/18 04:40 MCHC 31.7 g/dL (32.0-36.0) L 03/02/18 04:40 RDW 16.8 % (12.0-15.0) H 03/02/18 04:40 Plt Count 352 10^3/uL (130-450) 03/02/18 04:40 MPV 7.0 fL (7.4-11.4) L 03/02/18 04:40 Neut # 5.9 10^3/uL (1.5-6.6) 03/02/18 04:40 Lymph # 1.2 10^3/uL (1.5-3.5) L 03/02/18 04:40 [place] # 0.5 10^3/uL (0.0-1.0) 03/02/18 04:40 Eos # 0.1 10^3/uL (0.0-0.7) 03/02/18 04:40 Baso # 0.0 10^3/uL (0.0-0.1) 03/02/18 04:40 Absolute Nucleated RBC 0.00 x10^3/uL 03/02/18 04:40 Nucleated RBC % 0.0 /100WBC 03/02/18 04:40 PT 12.1 secs (9.9-12.6) 03/01/18 00:05 INR 1.1 (0.8-1.2) 03/01/18 00:05 Sodium 144 mmol/L (135-145) 03/02/18 04:40 Potassium 3.1 mmol/L (3.5-5.0) L 03/02/18 04:40 Chloride 109 mmol/L (101-111) 03/02/18 04:40 Carbon Dioxide 27 mmol/L (21-32) 03/02/18 04:40 Anion Gap 8.0 (6-13) 03/02/18 04:40 BUN 61 mg/dL (6-20) H 03/02/18 04:40 Creatinine 1.8 mg/dL (0.6-1.2) H 03/02/18 04:40 Estimated GFR (MDRD) 38 (>89) L 03/02/18 04:40 Glucose 120 mg/dL (70-100) H 03/02/18 04:40 Lactic Acid 0.9 mmol/L (0.5-2.2) 03/01/18 05:43 Calcium 7.9 mg/dL (8.5-10.3) L 03/02/18 04:40 Magnesium 2.7 mg/dL (1.7-2.8) 03/01/18 00:05 Total Bilirubin 1.0 mg/dL (0.2-1.0) 03/01/18 05:43 AST 17 IU/L (10-42) 03/01/18 05:43 ALT 20 IU/L (10-60) 03/01/18 05:43 Alkaline Phosphatase 44 IU/L (42-121) 03/01/18 05:43 Total Protein 5.8 g/dL (6.7-8.2) L 03/01/18 05:43 Albumin 2.5 g/dL (3.2-5.5) L 03/01/18 05:43 Globulin 3.3 g/dL (2.1-4.2) 03/01/18 05:43 Albumin/Globulin Ratio 0.8 (1.0-2.2) L 03/01/18 05:43 Lipase 18 U/L (22-51) L 03/01/18 00:05 Urine Color YELLOW 03/01/18 09:07 Urine Clarity CLEAR (CLEAR) 03/01/18 09:07 Urine pH 5.5 PH (5.0-7.5) 03/01/18 09:07 Ur Specific [place] 1.015 (1.002-1.030) 03/01/18 09:07 Urine Protein NEGATIVE mg/dL (NEGATIVE) 03/01/18 09:07 Urine Glucose (UA) NEGATIVE mg/dL (NEGATIVE) 03/01/18 09:07 Urine Ketones NEGATIVE mg/dL (NEGATIVE) 03/01/18 09:07 Urine Occult Blood MODERATE (NEGATIVE) H 03/01/18 09:07 Urine Nitrite NEGATIVE (NEGATIVE) 03/01/18 09:07 Urine Bilirubin NEGATIVE (NEGATIVE) 03/01/18 09:07 Urine Urobilinogen 0.2 (NORMAL) E.U./dL (NORMAL) 03/01/18 09:07 Ur Leukocyte Esterase TRACE (NEGATIVE) H 03/01/18 09:07 Urine RBC 0-5 /HPF (0-5) 03/01/18 09:07 Urine WBC 11-25 /HPF (0-3) H 03/01/18 09:07 Urine WBC Clumps PRESENT 03/01/18 09:07 Ur Squamous Epith Cells MOD Squamous (<= Few) H 03/01/18 09:07 Urine Bacteria Rare /HPF (None Seen) 03/01/18 09:07 Urine Casts 0-2 Hyaline Casts /LPF 03/01/18 09:07 Ur Microscopic Review INDICATED 03/01/18 09:07 Urine Culture Comments NOT INDICATED 03/01/18 09:07 Urine Opiates Screen POSITIVE (NEGATIVE) H 03/01/18 09:07 Ur Oxycodone Screen NEGATIVE (NEGATIVE) 03/01/18 09:07 Urine Methadone Screen NEGATIVE (NEGATIVE) 03/01/18 09:07 Ur Propoxyphene Screen NEGATIVE (NEGATIVE) 03/01/18 09:07 Ur Barbiturates Screen NEGATIVE (NEGATIVE) 03/01/18 09:07 Ur Tricyclics Screen NEGATIVE (NEGATIVE) 03/01/18 09:07 Ur Phencyclidine Scrn NEGATIVE (NEGATIVE) 03/01/18 09:07 Ur Amphetamine Screen NEGATIVE (NEGATIVE) 03/01/18 09:07 U Methamphetamines Scrn NEGATIVE (NEGATIVE) 03/01/18 09:07 U Benzodiazepines Scrn NEGATIVE (NEGATIVE) 03/01/18 09:07 Urine Cocaine Screen NEGATIVE (NEGATIVE) 03/01/18 09:07 U Cannabinoids Screen NEGATIVE (NEGATIVE) 03/01/18 09:07 Ethyl Alcohol < 5.0 mg/dL 03/01/18 00:05 - Procedures Procedures: Essentially neg colonoscopy this am; one small rectal polyp removed. ABX Reporting Has patient been on IV antibiotics over the past 48 hours?: Yes
--- NOTE | 2018-03-02 17:10 | PROVIDER PROGRESS NOTE ---
Subjective - Prog Note Date Prog Note Date: 03/02/18 - Subjective Pt reports feeling: Improved Subjective: pt feel hungry and pt passed gas. Pt denies abdominal pain. No more nausea and vomiting. No CP, SOB. Current Medications - Current Medications Current Medications: Active Medications Piperacillin Sod/Tazobactam (Sod 2.25 gm/ Sodium Chloride) 100 mls @ 200 mls/ hr IV Q6H [facility], [facility] Last Infusion: 03/02/18 14:37 Dose: Infused Potassium Chloride/Dextrose/Sod Cl (D5.45ns W/20 Meq Kcl) 1,000 mls @ 100 mls/ hr IV .Q10H [facility], [facility]1983 Last Infusion: 03/02/18 14:37 Dose: 100 mls/hr Mineral Oil (Cavilon) 1 applic TOP PRN PRN PRN Reason: Skin Care Last Admin: 03/01/18 22:03 Dose: 1 applic Morphine Sulfate (Morphine) 2 mg IVP Q2H PRN PRN Reason: Pain 8 to 10 Ondansetron HCl (Zofran Inj) 4 mg IVP Q6HR PRN PRN Reason: Nausea / Vomiting Ondansetron HCl (Zofran Odt) 4 mg TL Q6HR PRN PRN Reason: Nausea / Vomiting Pantoprazole Sodium (Protonix) 40 mg IVP BIDAC [facility], [facility]1983 Last Admin: 03/02/18 16:10 Dose: 40 mg Prochlorperazine Edisylate (Compazine Inj) 10 mg IVP Q6HR PRN PRN Reason: Nausea / Vomiting Sodium Biphosphate/Sodium Phosphate (Fleets Saline Enema) 133 ml RC ONCE [facility], [facility]1983 Stop: 03/02/18 19:00 Last Admin: 03/02/18 06:37 Dose: 133 ml Sodium Chloride (Normal Saline Flush 0.9%) 10 ml IVP PRN PRN PRN Reason: NEEDED PER PROVIDER ORDERS Last Admin: 03/02/18 16:11 Dose: 10 ml Sodium Chloride (Normal Saline Flush 0.9%) 10 ml IVP 0100,0900,1700 [facility] Last Admin: 03/02/18 16:10 Dose: 10 ml No Known Home Medications [No Known Home Medications] 03/01/18 Objective - Vital Signs/Intake & Output Reviewed Vital Signs: Yes Vital Signs: Vital Signs x48h Temp Pulse Resp BP Pulse Ox 03/02/18 15:26 36.2 C L 98 19 123/67 96 03/02/18 10:38 36.6 C 87 17 107/39 L 94 03/02/18 10:27 93 03/02/18 10:20 94 03/02/18 10:15 94 03/02/18 10:10 100 03/02/18 10:05 100 Intake & Output: Intake & Output 02/27/18 02/28/18 03/01/18 03/02/18 23:59 23:59 23:59 23:59 Intake Total 4657.084 2055.000 Output Total 800 800 Balance 3857.084 1255.000 - Objective General Appearance: positive: No acute distress, Alert. negative: Lethargic Eyes Bilateral: positive: Normal inspection, PERRL, No lid inflammation, Conjunctivae nml ENT: positive: ENT inspection nml, Pharynx nml, No signs of dehydration. negative: Purulent nasal drainage, Pharyngeal erythema, Oral lesions Neck: positive: Nml inspection, Thyroid nml, No JVD, Trachea midline. negative : Thyromegaly, Lymphadenopathy (R), Lymphadenopathy (L), Stiff neck, Carotid bruit, Swelling/bruising, Tracheal deviation Respiratory: positive: Chest non-tender, No respiratory distress, Breath sounds nml. negative: Wheezes, Rales, Rhonchi Cardiovascular: positive: Regular rate & rhythm, No murmur, No gallop. negative : Irregularly irregular, Extrasystoles, Tachycardia, Bradycardia, Systolic murmur, Diastolic murmur Peripheral Pulses: 2+ Radial (R), 2+ Radial (L), 2+ Dorsalis pedis (R), 2+ Dorsalis pedis (L) Abdomen: positive: Non-tender, No organomegaly, Nml bowel sounds. negative: Tenderness, Guarding, Rebound Back: positive: Nml inspection. negative: CVA tenderness (R), CVA tenderness (L ) Skin: positive: Color nml, No rash, Warm, Dry. negative: Cyanosis, Diaphoresis , Pallor Extremities: positive: Non-tender, Nml appearance. negative: Calf tenderness, Joint swelling, Lily's sign/cords Neurologic/Psychiatric: positive: Sensation nml, Mood/affect nml. negative: Sensory loss, Facial droop, Slurred/abnml speech, Depressed mood/affect - Lab Results Fish Bones: 03/02/18 04:40 03/02/18 04:40 Other Labs: Lab Results x24hrs 03/02/18 03/02/18 Range/Units 04:40 04:40 WBC 7.8 (4.8-10.8) x10^3/uL RBC 4.47 L (4.70-6.10) 10^6/uL Hgb 12.2 L (14.0-18.0) g/dL Hct 38.5 L (42.0-52.0) % MCV 86.2 (80.0-94.0) fL MCH 27.3 (27.0-31.0) pg MCHC 31.7 L (32.0-36.0) g/dL RDW 16.8 H (12.0-15.0) % Plt Count 352 (130-450) 10^3/uL MPV 7.0 L (7.4-11.4) fL Neut # 5.9 (1.5-6.6) 10^3/uL Lymph # 1.2 L (1.5-3.5) 10^3/uL [place] # 0.5 (0.0-1.0) 10^3/uL Eos # 0.1 (0.0-0.7) 10^3/uL Baso # 0.0 (0.0-0.1) 10^3/uL Absolute Nucleated RBC 0.00 x10^3/uL Nucleated RBC % 0.0 /100WBC Sodium 144 (135-145) mmol/L Potassium 3.1 L (3.5-5.0) mmol/L Chloride 109 (101-111) mmol/L Carbon Dioxide 27 (21-32) mmol/L Anion Gap 8.0 (6-13) BUN 61 H (6-20) mg/dL Creatinine 1.8 H (0.6-1.2) mg/dL Estimated GFR (MDRD) 38 L (>89) Glucose 120 H (70-100) mg/dL Calcium 7.9 L (8.5-10.3) mg/dL ABX Reporting Has patient been on IV antibiotics over the past 48 hours?: Yes Assessment/Plan - Problem List (1) Bowel obstruction Impression: Impression: it seems pt is getting improved. Thank surgeon, will closely follow up continue NPO continue IVF of D5 1/2 NS with 20 meq K to support continue support. It seems opiates is one cause of SBO, cause to be used for pain control consult with surgeon, will follow up add reglan, per surgeon's suggestion, stimulate bowel movement, closely monitor surgeon plan colonoscopy for pt on tomorrow, will follow up (2) Acute renal insufficiency Impression: significantly improved continue IVF daily lab monitor CT of abdomen reveals no hydronephrosis. it appear azotemia, hypovolume. IVF continue lab test avoid nephrological toxic agents (3) History of CVA with residual deficit Impression: continue support pt with left side weakness deficit from remote CVA stable, no new focus neuro deficit reported PT/OT follow up resume home meds (4) Lymphocytosis Impression: resolved. WBC is normal WBC is going down significantly, pt is with possible SBO, infection is concerned continue low dosage of Zosyn, in the acute renal injury daily lab and vital monitor Qualifiers: Intestinal obstruction type: unspecified Intestinal obstruction extent: complete Qualified Code(s): K56.601 - Complete intestinal obstruction, unspecified as to cause
--- NOTE | 2018-03-02 19:17 | XRAY Report ---
EXAM: ABDOMEN RADIOGRAPHY EXAM DATE: 03/02/2018 06:13 PM. CLINICAL HISTORY: Bowel obstruction vs ileus. Concern for pneumoperitoneum. COMPARISON: None. TECHNIQUE: 2 views. FINDINGS: Lung Bases: Unremarkable. Bowel Gas Pattern: Prominent air-filled large and small bowel loops sparing the left and sigmoid colo n. Free Air: None. Other: NG tube to the body of the stomach. IMPRESSION: 1. Prominent air-filled small and large bowel sparing the left and sigmoid colon compatible with ileu s/pseudoobstruction. 2. No free air. [facility] Referring Provider Line: [phone] SITE ID: [id number]
[2018-03-02] MEDS: MIN OIL/DIMETHICON/COCONUT OIL 92 GM TUBE TOP PRN (20:20)
[2018-03-03] MEDS: D5.45NS W/20 MEQ KCL 1,000 ML IV SCH (00:16)
[2018-03-03] MEDS: PIPERACILLIN/TAZOBACTAM 2.25 GM in SODIUM CHLORIDE 0.9% MINIBAG 100 ML IV SCH ×2 (00:17→06:48)
[2018-03-03] MEDS: SODIUM CHLORIDE FLUSH 0.9% 10 ML SYRINGE IVP SCH ×3 (01:21→15:55)
[2018-03-03 05:22] LABS: BASOPHILS % (AUTO) 0.1 %; EOSINOPHILS # (AUTO) 0.1 10^3/uL (0.0-0.7); EOSINOPHILS % (AUTO) 1.6 %; HGB - HEMOGLOBIN 12.3 g/dL (14.0-18.0); LYMPHOCYTES # (AUTO) 1.2 10^3/uL (1.5-3.5); LYMPHOCYTES % (AUTO) 17.5 %; MEAN CORPUSCULAR HEMOGLOBIN 27.2 pg (27.0-31.0); MEAN CORPUSCULAR HGB CONC 31.8 g/dL (32.0-36.0); MEAN CORPUSCULAR VOLUME 85.5 fL (80.0-94.0); MONOCYTES # (AUTO) 0.6 10^3/uL (0.0-1.0); MONOCYTES % (AUTO) 8.3 %; NEUTROPHILS % (AUTO) 72.5 %; PLT - PLATELET COUNT 314 10^3/uL (130-450); RED BLOOD COUNT 4.52 10^6/uL (4.70-6.10); RED CELL DISTRIBUTION WIDTH 16.8 % (12.0-15.0); WHITE BLOOD COUNT 6.9 x10^3/uL (4.8-10.8)
[2018-03-03 05:31] LABS: CREATININE 1.4 mg/dL (0.6-1.2)
[2018-03-03] MEDS: POTASSIUM CHLOR 10 MEQ/100 ML 10 MEQ/100 ML BAG IV SCH ×2 (08:13→09:58)
[2018-03-03] MEDS: POTASSIUM CHLORIDE INJ 40 MEQ in DEXTROSE 5%-0.45% NACL 980 ML IV SCH ×2 (08:13→19:27)
[2018-03-03] MEDS: PANTOPRAZOLE 40 MG VIAL IVP SCH ×2 (08:33→15:55)
--- NOTE | 2018-03-03 10:15 | PROVIDER PROGRESS NOTE ---
Assessment/Plan - Problem List (1) Bowel obstruction Qualifiers: Intestinal obstruction type: unspecified Intestinal obstruction extent: complete Qualified Code(s): K56.601 - Complete intestinal obstruction, unspecified as to cause Assessment/Plan: pseudo obstruction syndrome, likely due to fluid/electrolyte disturbance and/or narcotics, improving. Plan: remove NG tube today, start clear liquids this evening if tolerates NG out well. Continue to correct hypokalemia. Consider stopping antibiotics unless there is a clear reason to continue. - Current Meds Current Meds: Current Medications Generic Name Dose Route Start Last Admin Trade Name Freq PRN Reason Stop Dose Admin Piperacillin Sod/Tazobactam 100 mls @ 200 mls/hr 03/01/18 19:00 03/03/18 07: 17 Sod 2.25 gm/ Sodium Chloride IV Infused Q6H TOOTIE Infusion Potassium Chloride 40 meq/ 1,000 mls @ 100 mls/hr 03/03/18 08:00 03/03/18 08: 13 Dextrose/Sodium Chloride IV 100 mls/hr .Q10H TOOTIE Administration Potassium Chloride 10 meq in 100 mls @ 60 mls/hr 03/03/18 08:00 03/03/18 09: 58 Potassium Chloride IV 03/03/18 11:19 60 mls/hr Q100M TOOTIE Administration Mineral Oil 1 applic 03/01/18 19:42 03/02/18 20:20 Cavilon TOP 2 applic PRN PRN Administration Skin Care Pantoprazole Sodium 40 mg 03/01/18 07:00 03/03/18 08:33 Protonix IVP Not Given BIDAC TOOTIE Sodium Chloride 10 ml 03/01/18 02:05 03/02/18 16:11 Normal Saline Flush 0.9% IVP 10 ml PRN PRN Administration NEEDED PER PROVIDER ORDERS Sodium Chloride 10 ml 03/01/18 09:00 03/03/18 08:32 Normal Saline Flush 0.9% IVP Not Given 0100,0900,1700 TOOTIE - Lab Result Fish Bone Diagrams: 03/03/18 04:55 03/03/18 04:55 - Diagnostic Imaging Results Diagnostic Imaging Results: Read independently Diagnostic Imaging Results Comments: 2 view abd series shows contrast in colon, decreased distention of both small and large bowel with gas throughout small and large bowel. no free air. - Additional Planning Condition/Complexity: Improved My Orders: My Active Orders 03/02/18 10:05 NG Tube Care [RC] Q4HR 03/02/18 18:06 Message to Nursing [RC] QSHIFT 03/03/18 06:00 Abdomen 2 View X-Ray [XR] Routine 03/03/18 10:11 NG Discontinuation [RC] ONCE Plan Discussed with:: Patient Time Spent: 15-30 minutes Subjective - Subjective Patient Reports: Feeling Better, Resting Comfortably, No Complaints (pt continues to pass flatus; is hungry, denies abd pain, N,V) Nursing Reports: No Complaints, Other (2 large bowel movements overnight) Objective Vital Signs: Vital Signs - 24 hr 03/02/18 03/02/18 03/02/18 10:15 10:20 10:27 Temperature Heart Rate [ Radial] Respiratory Rate Blood Pressure [Right Brachial artery] O2 Saturation 94 94 93 03/02/18 03/02/18 03/02/18 10:38 15:26 23:40 Temperature 36.6 C 36.2 C L 36.5 C Heart Rate [ 87 98 93 Radial] Respiratory 17 19 18 Rate Blood Pressure 107/39 L 123/67 120/63 [Right Brachial artery] O2 Saturation 94 96 94 03/03/18 07:47 Temperature Heart Rate [ 84 Radial] Respiratory 16 Rate Blood Pressure 126/73 [Right Brachial artery] O2 Saturation 98 Oxygen O2 Source Room air I&O (Last 24 Hrs): Intake and Output Totals x24h 03/01/18 03/02/18 03/03/18 23:59 23:59 23:59 Intake Total 4657.084 3021.667 1420.000 Output Total 800 1900 Balance 3857.084 6216.114 8660.000 NG out 1700/24 hours, including 400/12 hours and minimal past 3 hours; pt consuming frequent ice chips and sips of H2O. Multiple voids. 03/03/18 10:19 General: Alert, Cooperative, No acute distress HEENT: Mucous membr. moist/pink Neck: Supple, No JVD Neuro: Alert Respiratory: Chest non-tender, No respiratory distress, Breath sounds nml Abdomen: Soft, No tenderness, No hepatospenomegaly, No masses, Other (bowel sounds still tympanitic; abdomen less distended, no tenderness, guarding, rebound or peritoneal signs.) Extremities: No edema, No tenderness/swelling - Results Results: Laboratory Results WBC 6.9 x10^3/uL (4.8-10.8) 03/03/18 04:55 RBC 4.52 10^6/uL (4.70-6.10) L 03/03/18 04:55 Hgb 12.3 g/dL (14.0-18.0) L 03/03/18 04:55 Hct 38.6 % (42.0-52.0) L 03/03/18 04:55 MCV 85.5 fL (80.0-94.0) 03/03/18 04:55 MCH 27.2 pg (27.0-31.0) 03/03/18 04:55 MCHC 31.8 g/dL (32.0-36.0) L 03/03/18 04:55 RDW 16.8 % (12.0-15.0) H 03/03/18 04:55 Plt Count 314 10^3/uL (130-450) 03/03/18 04:55 MPV 7.0 fL (7.4-11.4) L 03/03/18 04:55 Neut # 5.0 10^3/uL (1.5-6.6) 03/03/18 04:55 Lymph # 1.2 10^3/uL (1.5-3.5) L 03/03/18 04:55 [place] # 0.6 10^3/uL (0.0-1.0) 03/03/18 04:55 Eos # 0.1 10^3/uL (0.0-0.7) 03/03/18 04:55 Baso # 0.0 10^3/uL (0.0-0.1) 03/03/18 04:55 Absolute Nucleated RBC 0.01 x10^3/uL 03/03/18 04:55 Nucleated RBC % 0.2 /100WBC 03/03/18 04:55 PT 12.1 secs (9.9-12.6) 03/01/18 00:05 INR 1.1 (0.8-1.2) 03/01/18 00:05 Sodium 146 mmol/L (135-145) H 03/03/18 04:55 Potassium 2.8 mmol/L (3.5-5.0) L 03/03/18 04:55 Chloride 117 mmol/L (101-111) H 03/03/18 04:55 Carbon Dioxide 23 mmol/L (21-32) 03/03/18 04:55 Anion Gap 6.0 (6-13) 03/03/18 04:55 BUN 38 mg/dL (6-20) H 03/03/18 04:55 Creatinine 1.4 mg/dL (0.6-1.2) H 03/03/18 04:55 Estimated GFR (MDRD) 51 (>89) L 03/03/18 04:55 Glucose 126 mg/dL (70-100) H 03/03/18 04:55 Lactic Acid 0.9 mmol/L (0.5-2.2) 03/01/18 05:43 Calcium 8.0 mg/dL (8.5-10.3) L 03/03/18 04:55 Magnesium 2.7 mg/dL (1.7-2.8) 03/01/18 00:05 Total Bilirubin 1.0 mg/dL (0.2-1.0) 03/01/18 05:43 AST 17 IU/L (10-42) 03/01/18 05:43 ALT 20 IU/L (10-60) 03/01/18 05:43 Alkaline Phosphatase 44 IU/L (42-121) 03/01/18 05:43 Total Protein 5.8 g/dL (6.7-8.2) L 03/01/18 05:43 Albumin 2.5 g/dL (3.2-5.5) L 03/01/18 05:43 Globulin 3.3 g/dL (2.1-4.2) 03/01/18 05:43 Albumin/Globulin Ratio 0.8 (1.0-2.2) L 03/01/18 05:43 Lipase 18 U/L (22-51) L 03/01/18 00:05 Urine Color YELLOW 03/01/18 09:07 Urine Clarity CLEAR (CLEAR) 03/01/18 09:07 Urine pH 5.5 PH (5.0-7.5) 03/01/18 09:07 Ur Specific [place] 1.015 (1.002-1.030) 03/01/18 09:07 Urine Protein NEGATIVE mg/dL (NEGATIVE) 03/01/18 09:07 Urine Glucose (UA) NEGATIVE mg/dL (NEGATIVE) 03/01/18 09:07 Urine Ketones NEGATIVE mg/dL (NEGATIVE) 03/01/18 09:07 Urine Occult Blood MODERATE (NEGATIVE) H 03/01/18 09:07 Urine Nitrite NEGATIVE (NEGATIVE) 03/01/18 09:07 Urine Bilirubin NEGATIVE (NEGATIVE) 03/01/18 09:07 Urine Urobilinogen 0.2 (NORMAL) E.U./dL (NORMAL) 03/01/18 09:07 Ur Leukocyte Esterase TRACE (NEGATIVE) H 03/01/18 09:07 Urine RBC 0-5 /HPF (0-5) 03/01/18 09:07 Urine WBC 11-25 /HPF (0-3) H 03/01/18 09:07 Urine WBC Clumps PRESENT 03/01/18 09:07 Ur Squamous Epith Cells MOD Squamous (<= Few) H 03/01/18 09:07 Urine Bacteria Rare /HPF (None Seen) 03/01/18 09:07 Urine Casts 0-2 Hyaline Casts /LPF 03/01/18 09:07 Ur Microscopic Review INDICATED 03/01/18 09:07 Urine Culture Comments NOT INDICATED 03/01/18 09:07 Urine Opiates Screen POSITIVE (NEGATIVE) H 03/01/18 09:07 Ur Oxycodone Screen NEGATIVE (NEGATIVE) 03/01/18 09:07 Urine Methadone Screen NEGATIVE (NEGATIVE) 03/01/18 09:07 Ur Propoxyphene Screen NEGATIVE (NEGATIVE) 03/01/18 09:07 Ur Barbiturates Screen NEGATIVE (NEGATIVE) 03/01/18 09:07 Ur Tricyclics Screen NEGATIVE (NEGATIVE) 03/01/18 09:07 Ur Phencyclidine Scrn NEGATIVE (NEGATIVE) 03/01/18 09:07 Ur Amphetamine Screen NEGATIVE (NEGATIVE) 03/01/18 09:07 U Methamphetamines Scrn NEGATIVE (NEGATIVE) 03/01/18 09:07 U Benzodiazepines Scrn NEGATIVE (NEGATIVE) 03/01/18 09:07 Urine Cocaine Screen NEGATIVE (NEGATIVE) 03/01/18 09:07 U Cannabinoids Screen NEGATIVE (NEGATIVE) 03/01/18 09:07 Ethyl Alcohol < 5.0 mg/dL 03/01/18 00:05 ABX Reporting Has patient been on IV antibiotics over the past 48 hours?: Yes
--- NOTE | 2018-03-03 10:21 | XRAY Report ---
EXAM: ABDOMEN RADIOGRAPHY 2 VIEWS EXAM DATE: 03/03/2018. CLINICAL HISTORY: Follow-up ileus, pseudo-obstruction syndrome. COMPARISON: 03/02/2018. TECHNIQUE: 2 views. FINDINGS: Lung Bases: Mild lower lung atelectasis is unchanged. Heart size appears normal. Bowel Gas Pattern: Bowel dilatation is slightly decreased since the prior examination. Oral contrast has decreased in the small bowel and is now in the colon as far distal as the rectum. Esophagogastric tube is in the gastric fundus. Free Air: None. Soft tissues: No pathological calcification. Bones: Degenerative changes of the spine. IMPRESSION: Diffuse dilatation of bowel has slightly improved since 03/02/2018. Oral contrast has dec reased in the small bowel and now is into the colon, as far distal as the rectum. Esophagogastric tube is in the gastric fundus. [facility] Referring Provider Line: [phone] SITE ID: [id number]
--- NOTE | 2018-03-03 13:38 | PROVIDER PROGRESS NOTE ---
Subjective - Prog Note Date Prog Note Date: 03/03/18 - Subjective Pt reports feeling: Improved Subjective: pt report he feel better, he passed stool. No more N/V, or abdominal pain, and reduced abdominal extension. Current Medications - Current Medications Current Medications: Active Medications Potassium Chloride 40 meq/ (Dextrose/Sodium Chloride) 1,000 mls @ 100 mls/hr IV .Q10H [facility] Last Admin: 03/03/18 08:13 Dose: 100 mls/hr Mineral Oil (Cavilon) 1 applic TOP PRN PRN PRN Reason: Skin Care Last Admin: 03/02/18 20:20 Dose: 2 applic Morphine Sulfate (Morphine) 2 mg IVP Q2H PRN PRN Reason: Pain 8 to 10 Ondansetron HCl (Zofran Inj) 4 mg IVP Q6HR PRN PRN Reason: Nausea / Vomiting Ondansetron HCl (Zofran Odt) 4 mg TL Q6HR PRN PRN Reason: Nausea / Vomiting Pantoprazole Sodium (Protonix) 40 mg IVP BIDAC [facility] Last Admin: 03/03/18 08:33 Dose: Not Given Prochlorperazine Edisylate (Compazine Inj) 10 mg IVP Q6HR PRN PRN Reason: Nausea / Vomiting Sodium Chloride (Normal Saline Flush 0.9%) 10 ml IVP PRN PRN PRN Reason: NEEDED PER PROVIDER ORDERS Last Admin: 03/02/18 16:11 Dose: 10 ml Sodium Chloride (Normal Saline Flush 0.9%) 10 ml IVP 0100,0900,1700 [facility] Last Admin: 03/03/18 08:32 Dose: Not Given No Known Home Medications [No Known Home Medications] 03/01/18 Objective - Vital Signs/Intake & Output Reviewed Vital Signs: Yes Vital Signs: Vital Signs x48h Pulse Resp BP Pulse Ox 03/03/18 07:47 84 16 126/73 98 Intake & Output: Intake & Output 02/28/18 03/01/18 03/02/18 03/03/18 23:59 23:59 23:59 23:59 Intake Total 4657.084 3021.667 1520.000 Output Total 800 1900 Balance 3857.084 2113.006 1793.000 - Objective General Appearance: positive: No acute distress, Alert. negative: Lethargic Eyes Bilateral: positive: Normal inspection, PERRL, No lid inflammation, Conjunctivae nml ENT: positive: ENT inspection nml, Pharynx nml, No signs of dehydration. negative: Purulent nasal drainage, Pharyngeal erythema, Oral lesions Neck: positive: Nml inspection, Thyroid nml, No JVD, Trachea midline. negative : Thyromegaly, Lymphadenopathy (R), Lymphadenopathy (L), Stiff neck, Carotid bruit, Swelling/bruising, Tracheal deviation Respiratory: positive: Chest non-tender, No respiratory distress, Breath sounds nml. negative: Wheezes, Rales, Rhonchi Cardiovascular: positive: Regular rate & rhythm, No murmur, No gallop. negative : Irregularly irregular, Extrasystoles, Tachycardia, Bradycardia, JVD present, Systolic murmur, Diastolic murmur Peripheral Pulses: 2+ Radial (R), 2+ Radial (L), 2+ Dorsalis pedis (R), 2+ Dorsalis pedis (L) Abdomen: positive: Non-tender, No organomegaly, Nml bowel sounds. negative: Tenderness, Guarding, Rebound Back: positive: Nml inspection. negative: CVA tenderness (R), CVA tenderness (L ) Skin: positive: Color nml, No rash, Warm, Dry. negative: Cyanosis, Diaphoresis , Pallor Extremities: positive: Non-tender, Full ROM, Nml appearance. negative: Pedal edema, Calf tenderness, Joint swelling, Lily's sign/cords Neurologic/Psychiatric: positive: Mood/affect nml. negative: Sensory loss, Facial droop, Slurred/abnml speech, Depressed mood/affect - Lab Results Fish Bones: 03/03/18 04:55 03/03/18 04:55 Other Labs: Lab Results x24hrs 03/03/18 03/03/18 Range/Units 04:55 04:55 WBC 6.9 (4.8-10.8) x10^3/uL RBC 4.52 L (4.70-6.10) 10^6/uL Hgb 12.3 L (14.0-18.0) g/dL Hct 38.6 L (42.0-52.0) % MCV 85.5 (80.0-94.0) fL MCH 27.2 (27.0-31.0) pg MCHC 31.8 L (32.0-36.0) g/dL RDW 16.8 H (12.0-15.0) % Plt Count 314 (130-450) 10^3/uL MPV 7.0 L (7.4-11.4) fL Neut # 5.0 (1.5-6.6) 10^3/uL Lymph # 1.2 L (1.5-3.5) 10^3/uL [place] # 0.6 (0.0-1.0) 10^3/uL Eos # 0.1 (0.0-0.7) 10^3/uL Baso # 0.0 (0.0-0.1) 10^3/uL Absolute Nucleated RBC 0.01 x10^3/uL Nucleated RBC % 0.2 /100WBC Sodium 146 H (135-145) mmol/L Potassium 2.8 L (3.5-5.0) mmol/L Chloride 117 H (101-111) mmol/L Carbon Dioxide 23 (21-32) mmol/L Anion Gap 6.0 (6-13) BUN 38 H (6-20) mg/dL Creatinine 1.4 H (0.6-1.2) mg/dL Estimated GFR (MDRD) 51 L (>89) Glucose 126 H (70-100) mg/dL Calcium 8.0 L (8.5-10.3) mg/dL ABX Reporting Has patient been on IV antibiotics over the past 48 hours?: No Assessment/Plan - Problem List (1) Bowel obstruction Impression: (1) Impression: pseudo obstruction, improved, had bowel movement, no N/V, abdominal distension reduced it appears due to narcotics, fluid/electrolyte disturbance. follow up surgeon continue IVF. D/C Zosyn. WBC is normal, it seems infection is no longer the cause. it seems pt is getting improved. Thank surgeon, will closely follow up continue NPO continue IVF of D5 1/2 NS with 20 meq K to support continue support. It seems opiates is one cause of SBO, cause to be used for pain control consult with surgeon, will follow up add reglan, per surgeon's suggestion, stimulate bowel movement, closely monitor surgeon plan colonoscopy for pt on tomorrow, will follow up (2) Acute renal insufficiency Impression: continue improving continue IVF daily lab significantly improved continue IVF daily lab monitor CT of abdomen reveals no hydronephrosis. it appear azotemia, hypovolume. IVF continue lab test avoid nephrological toxic agents (3) History of CVA with residual deficit Impression: continue support PT/OT (4) hypokalemia replacement of potassium daily lab EKG PRN. pt is asymptomatic Qualifiers: Intestinal obstruction type: unspecified Intestinal obstruction extent: complete Qualified Code(s): K56.601 - Complete intestinal obstruction, unspecified as to cause
[2018-03-03] MEDS: SODIUM CHLORIDE FLUSH 0.9% 10 ML SYRINGE IVP PRN (15:55)
[2018-03-03] MEDS: MIN OIL/DIMETHICON/COCONUT OIL 92 GM TUBE TOP PRN ×3 (15:58→20:51)
[2018-03-04] MEDS: POTASSIUM CHLORIDE INJ 40 MEQ in DEXTROSE 5%-0.45% NACL 980 ML IV SCH (05:20)
[2018-03-04] MEDS: SODIUM CHLORIDE FLUSH 0.9% 10 ML SYRINGE IVP SCH ×3 (05:56→15:30)
[2018-03-04] MEDS: PANTOPRAZOLE 40 MG VIAL IVP SCH ×2 (05:56→15:30)
[2018-03-04 07:48] LABS: CALCIUM 7.3 mg/dL (8.5-10.3)
--- NOTE | 2018-03-04 09:43 | PROVIDER PROGRESS NOTE ---
Assessment/Plan - Problem List (1) Bowel obstruction Qualifiers: Intestinal obstruction type: unspecified Intestinal obstruction extent: complete Qualified Code(s): K56.601 - Complete intestinal obstruction, unspecified as to cause Assessment/Plan: Pseudo obstruction syndrome, resolving. Rec: advance diet as tolerated; d/c IVF, switch to oral meds, home tomorrow if continues to improve. Consider daily laxative such as Miralax. - Current Meds Current Meds: Current Medications Generic Name Dose Route Start Last Admin Trade Name Freq PRN Reason Stop Dose Admin Potassium Chloride 40 meq/ 1,000 mls @ 100 mls/hr 03/03/18 08:00 03/04/18 06: 05 Dextrose/Sodium Chloride IV 100 mls/hr .Q10H [facility] Infusion Mineral Oil 1 applic 03/01/18 19:42 03/03/18 20:51 Cavilon TOP 1 applic PRN PRN Administration Skin Care Pantoprazole Sodium 40 mg 03/01/18 07:00 03/04/18 05:56 Protonix IVP 40 mg BIDAC [facility] Administration Sodium Chloride 10 ml 03/01/18 02:05 03/03/18 15:55 Normal Saline Flush 0.9% IVP 10 ml PRN PRN Administration NEEDED PER PROVIDER ORDERS Sodium Chloride 10 ml 03/01/18 09:00 03/04/18 07:23 Normal Saline Flush 0.9% IVP Not Given 0100,0900,1700 [facility] - Lab Result Lab results reviewed: Yes Fish Bone Diagrams: 03/03/18 04:55 03/04/18 07:25 - Additional Planning Condition/Complexity: Improved Plan Discussed with:: Patient Time Spent: 15-30 minutes Subjective - Subjective Patient Reports: Feeling Better, Resting Comfortably, No Complaints (hungry, passing flatus/stool, no N/V; tolerating clear liquids well.) Nursing Reports: No Complaints Objective Vital Signs: Vital Signs - 24 hr 03/03/18 03/03/18 03/04/18 15:56 23:45 09:15 Temperature 36.6 C 36.9 C 37.3 C Heart Rate [ 81 89 85 Radial] Respiratory 16 20 19 Rate Blood Pressure 138/67 H 136/71 H 116/64 [Right Brachial artery] O2 Saturation 100 96 95 Oxygen O2 Source Room air I&O (Last 24 Hrs): Intake and Output Totals x24h 03/02/18 03/03/18 03/04/18 23:59 23:59 23:59 Intake Total 3021.667 4666.667 928.333 Output Total 1900 125 Balance 5554.011 6400.667 928.333 General: Alert, Cooperative, No acute distress Abdomen: Soft, No tenderness, No hepatospenomegaly, Other (much less distended, bowel sounds active, less tympanitic.) - Results Results: Laboratory Results WBC 6.9 x10^3/uL (4.8-10.8) 03/03/18 04:55 RBC 4.52 10^6/uL (4.70-6.10) L 03/03/18 04:55 Hgb 12.3 g/dL (14.0-18.0) L 03/03/18 04:55 Hct 38.6 % (42.0-52.0) L 03/03/18 04:55 MCV 85.5 fL (80.0-94.0) 03/03/18 04:55 MCH 27.2 pg (27.0-31.0) 03/03/18 04:55 MCHC 31.8 g/dL (32.0-36.0) L 03/03/18 04:55 RDW 16.8 % (12.0-15.0) H 03/03/18 04:55 Plt Count 314 10^3/uL (130-450) 03/03/18 04:55 MPV 7.0 fL (7.4-11.4) L 03/03/18 04:55 Neut # 5.0 10^3/uL (1.5-6.6) 03/03/18 04:55 Lymph # 1.2 10^3/uL (1.5-3.5) L 03/03/18 04:55 [place] # 0.6 10^3/uL (0.0-1.0) 03/03/18 04:55 Eos # 0.1 10^3/uL (0.0-0.7) 03/03/18 04:55 Baso # 0.0 10^3/uL (0.0-0.1) 03/03/18 04:55 Absolute Nucleated RBC 0.01 x10^3/uL 03/03/18 04:55 Nucleated RBC % 0.2 /100WBC 03/03/18 04:55 PT 12.1 secs (9.9-12.6) 03/01/18 00:05 INR 1.1 (0.8-1.2) 03/01/18 00:05 Sodium 138 mmol/L (135-145) 03/04/18 07:25 Potassium 3.7 mmol/L (3.5-5.0) 03/04/18 07:25 Chloride 113 mmol/L (101-111) H 03/04/18 07:25 Carbon Dioxide 20 mmol/L (21-32) L 03/04/18 07:25 Anion Gap 5.0 (6-13) L 03/04/18 07:25 BUN 17 mg/dL (6-20) 03/04/18 07:25 Creatinine 1.0 mg/dL (0.6-1.2) 03/04/18 07:25 Estimated GFR (MDRD) 75 (>89) L 03/04/18 07:25 Glucose 106 mg/dL (70-100) H 03/04/18 07:25 Lactic Acid 0.9 mmol/L (0.5-2.2) 03/01/18 05:43 Calcium 7.3 mg/dL (8.5-10.3) L 03/04/18 07:25 Magnesium 2.7 mg/dL (1.7-2.8) 03/01/18 00:05 Total Bilirubin 1.0 mg/dL (0.2-1.0) 03/01/18 05:43 AST 17 IU/L (10-42) 03/01/18 05:43 ALT 20 IU/L (10-60) 03/01/18 05:43 Alkaline Phosphatase 44 IU/L (42-121) 03/01/18 05:43 Total Protein 5.8 g/dL (6.7-8.2) L 03/01/18 05:43 Albumin 2.5 g/dL (3.2-5.5) L 03/01/18 05:43 Globulin 3.3 g/dL (2.1-4.2) 03/01/18 05:43 Albumin/Globulin Ratio 0.8 (1.0-2.2) L 03/01/18 05:43 Lipase 18 U/L (22-51) L 03/01/18 00:05 Urine Color YELLOW 03/01/18 09:07 Urine Clarity CLEAR (CLEAR) 03/01/18 09:07 Urine pH 5.5 PH (5.0-7.5) 03/01/18 09:07 Ur Specific [place] 1.015 (1.002-1.030) 03/01/18 09:07 Urine Protein NEGATIVE mg/dL (NEGATIVE) 03/01/18 09:07 Urine Glucose (UA) NEGATIVE mg/dL (NEGATIVE) 03/01/18 09:07 Urine Ketones NEGATIVE mg/dL (NEGATIVE) 03/01/18 09:07 Urine Occult Blood MODERATE (NEGATIVE) H 03/01/18 09:07 Urine Nitrite NEGATIVE (NEGATIVE) 03/01/18 09:07 Urine Bilirubin NEGATIVE (NEGATIVE) 03/01/18 09:07 Urine Urobilinogen 0.2 (NORMAL) E.U./dL (NORMAL) 03/01/18 09:07 Ur Leukocyte Esterase TRACE (NEGATIVE) H 03/01/18 09:07 Urine RBC 0-5 /HPF (0-5) 03/01/18 09:07 Urine WBC 11-25 /HPF (0-3) H 03/01/18 09:07 Urine WBC Clumps PRESENT 03/01/18 09:07 Ur Squamous Epith Cells MOD Squamous (<= Few) H 03/01/18 09:07 Urine Bacteria Rare /HPF (None Seen) 03/01/18 09:07 Urine Casts 0-2 Hyaline Casts /LPF 03/01/18 09:07 Ur Microscopic Review INDICATED 03/01/18 09:07 Urine Culture Comments NOT INDICATED 03/01/18 09:07 Urine Opiates Screen POSITIVE (NEGATIVE) H 03/01/18 09:07 Ur Oxycodone Screen NEGATIVE (NEGATIVE) 03/01/18 09:07 Urine Methadone Screen NEGATIVE (NEGATIVE) 03/01/18 09:07 Ur Propoxyphene Screen NEGATIVE (NEGATIVE) 03/01/18 09:07 Ur Barbiturates Screen NEGATIVE (NEGATIVE) 03/01/18 09:07 Ur Tricyclics Screen NEGATIVE (NEGATIVE) 03/01/18 09:07 Ur Phencyclidine Scrn NEGATIVE (NEGATIVE) 03/01/18 09:07 Ur Amphetamine Screen NEGATIVE (NEGATIVE) 03/01/18 09:07 U Methamphetamines Scrn NEGATIVE (NEGATIVE) 03/01/18 09:07 U Benzodiazepines Scrn NEGATIVE (NEGATIVE) 03/01/18 09:07 Urine Cocaine Screen NEGATIVE (NEGATIVE) 03/01/18 09:07 U Cannabinoids Screen NEGATIVE (NEGATIVE) 03/01/18 09:07 Ethyl Alcohol < 5.0 mg/dL 03/01/18 00:05 ABX Reporting Has patient been on IV antibiotics over the past 48 hours?: No
[2018-03-04] MEDS ORDERED: POLYETHYLENE GLYCOL 3350 17 GM PACKET PO PRN (10:14)
--- NOTE | 2018-03-04 12:47 | Discharge Plan ---
Discharge Plan Disposition: 01 Home, Self Care Condition: Poor Diet: Regular Activity Restrictions: Activity as Tolerated Shower Restrictions: No (caregiver closely monitor, fall precaution) Instruction Topics: Obstruction Sm Bowel, Obstruction Large Bowel Additional Instructions or Follow Up instructions: You may follow up your PCP in one week, follow up Surgeon Dr. Nahum Camarillo in 4 weeks. Should your symptoms return or worsen, you may present ER or call 911 for help. No Smoking: If you smoke, Please STOP! Call for help. Follow-up with: Kerry Coello ARNP [Primary Care Provider] -
--- NOTE | 2018-03-04 12:53 | DISCHARGE SUMMARY ---
"Discharge Summary Discharge Date: 03/04/18 Discharging Provider: CHAVEZ Primary Care Provider: Kerry Camacho Condition at Discharge: Poor Discharge Disposition: 01 Home, Self Care Discharge Facility Name: home - DIAGNOSES Admission Diagnoses: (1) Bowel obstruction (2) Acute renal insufficiency (3) History of CVA with residual deficit (4) Lymphocytosis Discharge Diagnoses with Status of Each Condition: (1) Bowel obstruction resolved. pt passed several time bowel movement. pt tolerated regular food. No Nausea or vomiting or abdominal pain. (2) Acute renal insufficiency resolved (3) History of CVA with residual deficit continue managed by PCP and pt's neurologist (4) Lymphocytosis resolved - HPI History of Present Illness: refer from Dr. Valerio's HPI on 03/01/18 for Pt - CONSULTS | PROCEDURES Consultations: General surgeon Procedures: colonoscopy - HOSPITAL COURSE Hospital Course: pt was admitted for N/V, abdominal pain and distension. Pt was also found to have acute renal injury. Surgeon was consulted for possible SBO. pt was treated with colonoscopy, bowel rest, hydration, antibiotics. Then pt had several bowel movement, pt asked diet. Pt then had regular diet. Pt tolerate the regular diet. No nausea, vomiting , abdominal pain. I called Dr. Nahum Camarillo, he released pt to be d/c as well. - ALLERGIES Allergies/Adverse Reactions: Allergies Allergy/AdvReac Type Severity Reaction Status Date / Time No Known Drug Allergies Allergy Verified 02/28/18 23:34 - MEDICATIONS Home Medications: Ambulatory Orders Medication Instructions Recorded Confirmed No Known Home Medications [No 03/01/18 03/01/18 Known Home Medications] - PHYSICAL EXAM AT DISCHARGE General Appearance: positive: No acute distress, Alert. negative: Lethargic Eyes Bilateral: positive: Normal inspection, PERRL, No lid inflammation, Conjunctivae nml ENT: positive: ENT inspection nml, Pharynx nml, No signs of dehydration. negative: Purulent nasal drainage, Pharyngeal erythema, Oral lesions Neck: positive: Nml inspection, Thyroid nml, No JVD, Trachea midline. negative : Thyromegaly, Lymphadenopathy (R), Lymphadenopathy (L), Stiff neck, Swelling/ bruising, Tracheal deviation Respiratory: positive: Chest non-tender, No respiratory distress, Breath sounds nml. negative: Wheezes, Rales, Rhonchi Cardiovascular: positive: Regular rate & rhythm, No murmur, No gallop. negative : Irregularly irregular, Extrasystoles, Tachycardia, Bradycardia, Systolic murmur, Diastolic murmur Peripheral Pulses: positive: 2+ Abdomen: positive: Non-tender, No organomegaly, Nml bowel sounds, No distention. negative: Tenderness, Guarding, Rebound Back: positive: Nml inspection. negative: CVA tenderness (R), CVA tenderness (L ) Skin: positive: Color nml, No rash, Warm, Dry. negative: Cyanosis, Diaphoresis , Pallor Extremities: positive: Non-tender, Full ROM, Nml appearance. negative: Calf tenderness, Joint swelling, Lily's sign/cords Neurologic/Psychiatric: positive: Oriented x3, Mood/affect nml. negative: Sensory loss, Facial droop, Slurred/abnml speech, Depressed mood/affect - LABS Result Diagrams: 03/03/18 04:55 03/04/18 07:25 - FOLLOW UP Follow Up: You may follow up your PCP in one week, follow up Surgeon Dr. Nahum Camarillo in 4 weeks. You is also advise to keep hydration. Should your symptoms return or worsen, you may present ER or call 911 for help. - TIME SPENT Time Spent in Discharge (Minutes): 40"
[2018-03-04 16:14] VITALS: BP 141/81
== END 2018-03-04 16:33 | disposition home or self-care (01) | DRG 392 ==
LOC: EDUNIT# → ED 23:29 → MS3 03-01 02:05
PROVIDERS: ADMIT Specialist; ATTEND Nurse Practitioner Gerontology
PROC: 0DBP8ZZ Excision of Rectum, Via Natural or Artificial Opening Endoscopic (ICD-10-PCS; principal; 2018-03-02 09:00)
DX: K56.601 Complete intestinal obstruction, unspecified as to cause (principal); N28.9 Disorder of kidney and ureter, unspecified; K59.8 Other specified functional intestinal disorders; N17.9 Acute kidney failure, unspecified; F17.200 Nicotine dependence, unspecified, uncomplicated; N20.2 Calculus of kidney with calculus of ureter; I69.354 Hemiplegia and hemiparesis following cerebral infarction affecting left non-dominant side; D72.820 Lymphocytosis (symptomatic); K59.00 Constipation, unspecified; E87.6 Hypokalemia; E86.0 Dehydration; E86.1 Hypovolemia; N21.0 Calculus in bladder; K62.1 Rectal polyp; G89.29 Other chronic pain; M25.552 Pain in left hip; F10.11 Alcohol abuse, in remission; Z91.14 Patient's other noncompliance with medication regimen; Z72.0 Tobacco use
CPT/HCPCS: 36415; 71045; 74019; 74176; 74250; 80048; 80053; 80306; 80320; 81001; 81003; 83605; 83690; 83735; 85025; 85610; 87086; 88305; 93005; 96361; 96374; 96375; 99284; 99285

== ENCOUNTER 2018-03-17 23:00 | Outpatient (CLI) | payer MEDICARE | END 2018-03-17 23:01 | disposition critical access hospital (66) | LOC: EMS 23:00 | PROVIDERS: ATTEND Surgery | DX: R53.1 Weakness (principal); R53.83 Other fatigue; R15.9 Full incontinence of feces; R32 Unspecified urinary incontinence | CPT/HCPCS: A0425; A0429 ==

== ENCOUNTER 2018-03-17 23:23 | Emergency (ER) | payer MEDICARE ==
[2018-03-18 00:15] LABS: BASOPHILS # (AUTO) 0.1 10^3/uL (0.0-0.1); BASOPHILS % (AUTO) 0.6 %; EOSINOPHILS # (AUTO) 0.2 10^3/uL (0.0-0.7); EOSINOPHILS % (AUTO) 1.9 %; HGB - HEMOGLOBIN 12.8 g/dL (14.0-18.0); LYMPHOCYTES # (AUTO) 2.4 10^3/uL (1.5-3.5); LYMPHOCYTES % (AUTO) 24.5 %; MEAN CORPUSCULAR HEMOGLOBIN 28.2 pg (27.0-31.0); MEAN CORPUSCULAR HGB CONC 33.3 g/dL (32.0-36.0); MEAN CORPUSCULAR VOLUME 84.8 fL (80.0-94.0); MEAN PLATELET VOLUME 6.3 fL (7.4-11.4); MONOCYTES # (AUTO) 0.8 10^3/uL (0.0-1.0); MONOCYTES % (AUTO) 7.8 %; NEUTROPHILS # (AUTO) 6.5 10^3/uL (1.5-6.6); NEUTROPHILS % (AUTO) 65.2 %; PLT - PLATELET COUNT 259 10^3/uL (130-450); RED BLOOD COUNT 4.54 10^6/uL (4.70-6.10); RED CELL DISTRIBUTION WIDTH 18.3 % (12.0-15.0); WHITE BLOOD COUNT 9.9 x10^3/uL (4.8-10.8)
[2018-03-18 00:28] LABS: ALBUMIN 2.4 g/dL (3.2-5.5); ALBUMIN/GLOBULIN RATIO 0.6 (1.0-2.2); ALKALINE PHOSPHATASE 81 IU/L (42-121); ALT ALANINE AMINOTRANSFERASE 17 IU/L (10-60); AST ASPARTATE AMINOTRANSFERASE 25 IU/L (10-42); BILIRUBIN,TOTAL 0.2 mg/dL (0.2-1.0); BUN - BLOOD UREA NITROGEN 17 mg/dL (6-20); CALCIUM 8.2 mg/dL (8.5-10.3); CARBON DIOXIDE - CO2 24 mmol/L (21-32); CHLORIDE 104 mmol/L (101-111); GFR - MDRD 75 (>89); GLUCOSE 109 mg/dL (70-100); LIPASE 35 U/L (22-51); MAGNESIUM 1.9 mg/dL (1.7-2.8); PHOSPHORUS 2.4 mg/dL (2.5-4.6); SODIUM 136 mmol/L (135-145); TOTAL PROTEIN 6.3 g/dL (6.7-8.2)
[2018-03-18] MEDS ORDERED: SODIUM CHLORIDE 0.9% 1,000 ML IV ONE (00:28)
[2018-03-18] MEDS ORDERED: ASPIRIN CHEW 81 MG TABLET PO STA (00:40)
--- NOTE | 2018-03-18 00:45 | CT Report ---
EXAM: CT HEAD EXAM DATE: 03/18/2018 12:20 AM. CLINICAL HISTORY: Possible seizure. Weakness and slurred speech. COMPARISON: Head CT and MR brain 05/10/2009. TECHNIQUE: Multiaxial CT images were obtained from the foramen magnum to the vertex. Reformats: Coron al. IV contrast: None. In accordance with CT protocol optimization, one or more of the following dose reduction techniques w ere utilized for this exam: automated exposure control, adjustment of mA and/or KV based on patient s ize, or use of iterative reconstructive technique. FINDINGS: Large, old right hemisphere infarct. There is involvement of the entire right MCA territory, portions of both anterior and posterior cerebral artery territories. Recent right hemisphere infarct on prior imaging. 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 Posterior fossa otherw ise unremarkable. Left cerebral hemisphere demonstrates no CT evidence of recent infarct. No hemorrhage, extracerebral fluid collection or hydrocephalus. Ex vacuo dilatation of the right late ral ventricle. Skull base, imaged paranasal sinuses, mastoids and calvarium are unremarkable. IMPRESSION: Large, old areas of infarct within the right cerebral hemisphere. No acute intracranial p rocess identified by CT. [facility] Referring Provider Line: [phone] SITE ID: [id number]
[2018-03-18] MEDS ORDERED: ASPIRIN CHEW 81 MG TABLET ONE (00:53)
[2018-03-18] MEDS ORDERED: HEPARIN 25000UNITS/500ML (D5W) 25,000 UNIT/500 ML BAG IV STA (01:02)
[2018-03-18] MEDS ORDERED: HEPARIN 5,000 UNIT/ML VIAL IVP ONE (01:02)
--- NOTE | 2018-03-18 01:05 | ED Physician Documentation ---
History of Present Illness - Stated complaint Stated Complaint: TEMPORARY EPISDODE WITH INCONTINENCE - Chief complaint Chief Complaint: Neuro - History obtained from History obtained from: Patient, EMS - History of Present Illness Timing: Today - Additonal information Additional information: Patient is a 67 year old male with a history of prior cva with significant left sided deficit. According to patient and ems patient had an episode of incontinence and altered mental status, there was some questionable seizure activity. ems was called. When patient was brought in he stated that the last thing her remembered was being in bed. He denied and specific complaints but states that he just does not feel well. Review of Systems Constitutional: denies: Fever, Chills Eyes: denies: Decreased vision Ears: reports: Reviewed and negative Nose: denies: Rhinorrhea / runny nose, Congestion Cardiac: denies: Chest pain / pressure, Palpitations Respiratory: denies: Wheezing GI: reports: Nausea, Vomiting : denies: Dysuria, Frequency, Hesitancy Skin: denies: Rash, Lesions Neurologic: reports: Seizure, Confused. denies: Headache Immunocompromised: denies: Immunocompromised PD PAST MEDICAL HISTORY - Past Medical History Cardiovascular: None Respiratory: None Endocrine/Autoimmune: None GI: None : None - Past Surgical History Past Surgical History: No - Present Medications Home Medications: Ambulatory Orders Medication Instructions Recorded Confirmed No Known Home Medications [No 03/01/18 03/01/18 Known Home Medications] - Allergies Allergies/Adverse Reactions: Allergies Allergy/AdvReac Type Severity Reaction Status Date / Time No Known Drug Allergies Allergy Verified 02/28/18 23:34 - Social History Does the pt smoke?: Yes Smoking Status: Current every day smoker Does the pt drink ETOH?: No Does the pt have substance abuse?: No - Immunizations Immunizations are current?: Yes PD ED PE NORMAL - Vitals Vital signs reviewed: Yes - General General: Alert and oriented X 3 - HEENT HEENT: Atraumatic - Respiratory Respiratory: No respiratory distress - Abdomen Abdomen: Soft - Derm Derm: Normal color - Psych Psych: Normal mood PD ED PE EXPANDED - General General: Alert, Disheveled, poorly kept - HEENT HEENT: Dry mucous membranes - Cardiac Cardiac: Tachy - Neuro Neuro: LUE (no movement). No: Normal motor, Normal Sensation Results - Vitals Vitals: Vital Signs - 24 hr 03/17/18 03/17/18 03/18/18 23:24 23:48 00:00 Temperature 37.1 C Heart Rate 116 H 111 H 119 H Respiratory 18 16 16 Rate Blood Pressure 140/82 H 115/65 111/78 O2 Saturation 100 95 95 03/18/18 03/18/18 03/18/18 00:36 01:00 01:52 Temperature Heart Rate 117 H 109 H 128 H Respiratory 18 16 16 Rate Blood Pressure 137/88 H 108/52 L 120/86 H O2 Saturation 96 97 98 Oxygen O2 Source Room air - EKG (time done) 2332 Rate: Rate (enter#) (113) Rhythm: Sinus tachycardia [place]: Anterior hemiblock QRS: LVH Ischemia: T wave inversion Compare to prior EKG: Changed from prior EKG 0041 Rate: Rate (enter#) (116) Rhythm: Sinus tachycardia [place]: LAD QRS: Normal Ischemia: T wave inversion Compare to prior EKG: Unchanged from prior EKG - Labs Labs: Laboratory Tests 03/17/18 03/17/18 03/17/18 00:00 00:00 00:00 WBC 9.9 RBC 4.54 L Hgb 12.8 L Hct 38.5 L MCV 84.8 MCH 28.2 MCHC 33.3 RDW 18.3 H Plt Count 259 MPV 6.3 L Neut # 6.5 Lymph # 2.4 [place] # 0.8 Eos # 0.2 Baso # 0.1 Absolute Nucleated RBC 0.00 Nucleated RBC % 0.0 PT INR APTT Sodium 136 Potassium 3.6 Chloride 104 Carbon Dioxide 24 Anion Gap 8.0 BUN 17 Creatinine 1.0 Estimated GFR (MDRD) 75 L Glucose 109 H Lactic Acid Calcium 8.2 L Phosphorus 2.4 L Magnesium 1.9 Total Bilirubin 0.2 AST 25 ALT 17 Alkaline Phosphatase 81 Troponin I 1.52 H* B-Natriuretic Peptide Total Protein 6.3 L Albumin 2.4 L Globulin 3.9 Albumin/Globulin Ratio 0.6 L Lipase 35 TSH Ethyl Alcohol < 5.0 03/17/18 03/17/18 03/18/18 00:00 00:00 00:00 WBC RBC Hgb Hct MCV MCH MCHC RDW Plt Count MPV Neut # Lymph # [place] # Eos # Baso # Absolute Nucleated RBC Nucleated RBC % PT 10.9 INR 1.0 APTT 28.4 Sodium Potassium Chloride Carbon Dioxide Anion Gap BUN Creatinine Estimated GFR (MDRD) Glucose Lactic Acid Calcium Phosphorus Magnesium Total Bilirubin AST ALT Alkaline Phosphatase Troponin I B-Natriuretic Peptide 300 H Total Protein Albumin Globulin Albumin/Globulin Ratio Lipase TSH 0.82 Ethyl Alcohol 03/18/18 00:33 WBC RBC Hgb Hct MCV MCH MCHC RDW Plt Count MPV Neut # Lymph # Mobile # Eos # Baso # Absolute Nucleated RBC Nucleated RBC % PT INR APTT Sodium Potassium Chloride Carbon Dioxide Anion Gap BUN Creatinine Estimated GFR (MDRD) Glucose Lactic Acid 0.9 Calcium Phosphorus Magnesium Total Bilirubin AST ALT Alkaline Phosphatase Troponin I B-Natriuretic Peptide Total Protein Albumin Globulin Albumin/Globulin Ratio Lipase TSH Ethyl Alcohol - Rads (name of study) ct head Radiology: Final report received (no acute changes, but significant post stroke abnormalities of right hemisphere) PD MEDICAL DECISION MAKING - ED course Complexity details: reviewed old records, reviewed results, re-evaluated patient , considered differential, d/w patient, d/w family, d/w [facility] consultant ED course: patient was seen and examined at bedside. ekg was performed and showed sinus tach with new T wave inversions in V6. patient was started with a fluid bolus and imaging was ordered. When patient returned from imaging the results were reviewed. While patient's CT head a was very abnormal there were no acute changes. Patient's labs showed an elevated troponin. Repeat ekg was performed and showed no acute abnormalities. Patient was treated with aspirin and heparin drip was ordered. Case was discussed with [facility] and the patient was accepted by Dr. Rockwell. Patient's was contacted and made aware. Arrangements were made and patient was transferred in stable condition. Departure - Departure Disposition: 02 Transfer Acute Care Hosp Clinical Impression: History of CVA with residual deficit, NSTEMI (non-ST elevated myocardial infarction) Condition: Stable Discharge Date/Time: 03/18/18 01:54
[2018-03-18 01:16] LABS: PT - PROTHROMBIN TIME 10.9 secs (9.9-12.6)
[2018-03-18 01:53] VITALS: BP 120/86
== END 2018-03-18 01:54 | disposition short-term general hospital (02) ==
LOC: EDUNIT# → ED 23:23
DX: I21.4 Non-ST elevation (NSTEMI) myocardial infarction (principal); I69.998 Other sequelae following unspecified cerebrovascular disease; F17.200 Nicotine dependence, unspecified, uncomplicated
CPT/HCPCS: 36415; 70450; 80053; 83605; 83690; 83735; 83880; 84100; 84443; 84484; 85025; 85610; 85730; 87040; 93005; 96365; 96376; 99284; A9270; G0480; 80320

== ENCOUNTER 2018-03-18 01:54 | Outpatient (CLI) | payer MEDICARE | END 2018-03-18 01:55 | disposition short-term general hospital (02) | LOC: EMS 01:54 | PROVIDERS: ATTEND Surgery | DX: I21.4 Non-ST elevation (NSTEMI) myocardial infarction (principal) | CPT/HCPCS: A0425; A0426 ==

== ENCOUNTER 2019-10-25 23:12 | Outpatient (CLI) | payer MEDICARE | END 2019-10-25 23:13 | disposition critical access hospital (66) | LOC: EMS 23:12 | PROVIDERS: ATTEND Surgery | DX: R14.0 Abdominal distension (gaseous) (principal); R10.9 Unspecified abdominal pain; R11.2 Nausea with vomiting, unspecified | CPT/HCPCS: A0425; A0427 ==

== ENCOUNTER 2019-10-25 23:34 | Inpatient (IN) | payer MEDICARE ==
--- NOTE | 2019-10-26 00:04 | ED Physician Documentation ---
PD HPI ABD PAIN - Stated complaint Stated Complaint: ABD DISTENSION, N/V - Chief complaint Chief Complaint: Abd Pain - History obtained from History obtained from: Patient - History of Present Illness Timing - onset: How many days ago (2) Timing - duration: Days (2) Timing - details: Abrupt onset, Still present Quality: Cramping, Aching, Fullness/distended Location: All over / everywhere Radiation: Lower back Improved by: Vomiting Worsened by: Eating Associated symptoms: Nausea, Vomiting. No: Fever, Diarrhea, Constipation, Melena Similar symptoms before: Diagnosis (bowel obstruction February 2018, seen here at [facility] for it and resolved nonoperatively.) Recently seen: Not recently seen Review of Systems Constitutional: denies: Fever, Chills, Myalgias Nose: denies: Rhinorrhea / runny nose, Congestion Throat: denies: Sore throat Cardiac: denies: Chest pain / pressure Respiratory: denies: Cough GI: reports: Abdominal Pain, Abdominal Swelling, Nausea, Vomiting. denies: Constipation, Diarrhea, Bloody / black stool : denies: Dysuria, Frequency Neurologic: reports: Generalized weakness, Focal weakness (left sided paresis since prior CVA). denies: Numbness PD PAST MEDICAL HISTORY - Past Medical History Cardiovascular: None Respiratory: None Neuro: CVA (with left sided weakness) Endocrine/Autoimmune: None GI: None : None - Past Surgical History Past Surgical History: No - Present Medications Home Medications: Ambulatory Orders Medication Instructions Recorded Confirmed No Known Home Medications 03/01/18 03/01/18 - Allergies Allergies/Adverse Reactions: Allergies Allergy/AdvReac Type Severity Reaction Status Date / Time No Known Drug Allergies Allergy Verified 10/26/19 01:09 - Social History Does the pt smoke?: Yes Smoking Status: Current every day smoker Does the pt drink ETOH?: No Does the pt have substance abuse?: No - Immunizations Immunizations are current?: Yes PD ED PE NORMAL - Vitals Vital signs reviewed: Yes - General General: Alert and oriented X 3, Well developed/nourished, Other (unkempt. Has significant abd distension with tympany to percussion. ) - HEENT HEENT: Pharynx benign. No: Moist mucous membranes - Neck Neck: Supple, no meningeal sign, No adenopathy - Cardiac Cardiac: No murmur. No: RRR (regular and tachycardic) - Respiratory Respiratory: Clear bilaterally - Abdomen Abdomen: No organomegaly, Other (Significantly distended abdomen diffusely with hyperactive and tympanitic bowel sounds. There is tympany to percussion. There is no hernia felt. There is no focal area of tenderness.) - Male Male : Other (No inguinal nor scrotal hernias are felt.) - Rectal Rectal: Deferred - Back Back: No CVA TTP - Derm Derm: Normal color, Warm and dry - Extremities Extremities: Normal ROM s pain, No edema, No calf tenderness / cord - Neuro Neuro: Alert and oriented X 3, Normal speech, Other (Left arm and leg and facial weakness which she states are residual from a prior stroke.) Eye Opening: Spontaneous Motor: Obeys Commands Verbal: Oriented GCS Score: 15 Results - Vitals Vitals: Vital Signs - 24 hr 10/25/19 10/26/19 23:44 01:04 Temperature 36.8 C Heart Rate 116 H 100 Respiratory 24 16 Rate Blood Pressure 138/101 H 99/73 O2 Saturation 99 94 Oxygen O2 Source Room air - Labs Labs: Laboratory Tests 10/26/19 10/26/19 10/26/19 00:30 00:30 00:30 WBC 13.7 H RBC 4.55 L Hgb 13.4 L Hct 43.7 MCV 96.0 H MCH 29.5 MCHC 30.7 L RDW 14.9 Plt Count 305 MPV 8.6 Neut # (Auto) 11.5 H Lymph # (Auto) 1.0 L [place] # (Auto) 1.1 H Eos # (Auto) 0.0 Baso # (Auto) 0.0 Absolute Nucleated RBC 0.00 Nucleated RBC % 0.0 PT 12.5 INR 1.1 APTT 24.6 L Sodium 137 Potassium 3.7 Chloride 104 Carbon Dioxide 20 L Anion Gap 13.0 BUN 64 H Creatinine 3.0 H Estimated GFR (MDRD) 21 L Glucose 132 H Lactic Acid Calcium 7.9 L Magnesium 2.2 Total Bilirubin 0.8 AST 19 ALT 12 Alkaline Phosphatase 66 Total Protein 7.1 Albumin 3.1 L Globulin 4.0 Albumin/Globulin Ratio 0.8 L Lipase 31 Ethyl Alcohol < 5.0 10/26/19 00:35 WBC RBC Hgb Hct MCV MCH MCHC RDW Plt Count MPV Neut # (Auto) Lymph # (Auto) [place] # (Auto) Eos # (Auto) Baso # (Auto) Absolute Nucleated RBC Nucleated RBC % PT INR APTT Sodium Potassium Chloride Carbon Dioxide Anion Gap BUN Creatinine Estimated GFR (MDRD) Glucose Lactic Acid 1.5 Calcium Magnesium Total Bilirubin AST ALT Alkaline Phosphatase Total Protein Albumin Globulin Albumin/Globulin Ratio Lipase Ethyl Alcohol - Rads (name of study) abd CT Radiology: Prelim report reviewed (High-grade bowel obstruction with transition at the distal ileum.), See rad report PD MEDICAL DECISION MAKING - ED course Complexity details: reviewed results, considered differential (Distention and nausea and vomiting consistent with obstruction. Old records show a similar episode in February 2018 that resolved nonsurgically. We will give IV fluids and pain medication. He does appear dehydrated so fluids will be important. We will get a CT scan), d/w patient, d/w healthcare network consultant (Discussed with Dr. Pruitt on for surgery who defers to hospitalist for medical management initially and he will consult.) Departure - Departure Disposition: 66 [facility] DC/Xfer Clinical Impression: Small bowel obstruction, Acute renal insufficiency, Dehydration Abdominal pain Qualifiers: Abdominal location: generalized Qualified Code(s): R10.84 - Generalized abdominal pain Condition: Stable Discharge Date/Time: 10/26/19 03:57
[2019-10-26] MEDS ORDERED: MORPHINE 2 MG/ML CARPUJECT IVP STA (00:12)
[2019-10-26] MEDS ORDERED: SODIUM CHLORIDE 0.9% 1,000 ML IV ONE ×3 (00:12→01:50)
[2019-10-26] MEDS ORDERED: ONDANSETRON 4 MG/2 ML VIAL IVP STA (00:12)
[2019-10-26 00:38] LABS: BASOPHILS % (AUTO) 0.1 %; HGB - HEMOGLOBIN 13.4 g/dL (14.0-18.0); LYMPHOCYTES % (AUTO) 7.4 %; MEAN CORPUSCULAR HEMOGLOBIN 29.5 pg (27.0-31.0); MEAN CORPUSCULAR HGB CONC 30.7 g/dL (32.0-36.0); MEAN PLATELET VOLUME 8.6 fL (7.4-11.4); MONOCYTES # (AUTO) 1.1 10^3/uL (0.0-1.0); MONOCYTES % (AUTO) 7.8 %; NEUTROPHILS # (AUTO) 11.5 10^3/uL (1.5-6.6); NEUTROPHILS % (AUTO) 84.1 %; PLT - PLATELET COUNT 305 10^3/uL (130-450); RED BLOOD COUNT 4.55 10^6/uL (4.70-6.10); RED CELL DISTRIBUTION WIDTH 14.9 % (12.0-15.0); WHITE BLOOD COUNT 13.7 x10^3/uL (4.8-10.8)
[2019-10-26 00:42] LABS: INR 1.1 (0.8-1.2); PT - PROTHROMBIN TIME 12.5 secs (9.9-12.6)
[2019-10-26 00:48] LABS: ALBUMIN 3.1 g/dL (3.2-5.5); ALBUMIN/GLOBULIN RATIO 0.8 (1.0-2.2); ALKALINE PHOSPHATASE 66 IU/L (42-121); ALT ALANINE AMINOTRANSFERASE 12 IU/L (10-60); AST ASPARTATE AMINOTRANSFERASE 19 IU/L (10-42); BILIRUBIN,TOTAL 0.8 mg/dL (0.2-1.0); BUN - BLOOD UREA NITROGEN 64 mg/dL (6-20); CALCIUM 7.9 mg/dL (8.5-10.3); CARBON DIOXIDE - CO2 20 mmol/L (21-32); CHLORIDE 104 mmol/L (101-111); GFR - MDRD 21 (>89); GLUCOSE 132 mg/dL (70-100); LIPASE 31 U/L (22-51); MAGNESIUM 2.2 mg/dL (1.7-2.8); SODIUM 137 mmol/L (135-145); TOTAL PROTEIN 7.1 g/dL (6.7-8.2)
[2019-10-26 00:49] LABS: PARTIAL THROMBOPLASTIN TIME 24.6 secs (24.9-33.3)
--- NOTE | 2019-10-26 02:37 | CT Report ---
Reason: abd distension and vomiting Procedure Date: 10/26/2019 Accession Number: [id number] / [id number] Procedure: CT - Abdomen/Pelvis WO CPT Code: Final Report FULL RESULT: EXAM: CT ABDOMEN AND PELVIS EXAM DATE: 10/26/2019 01:59 AM. CLINICAL HISTORY: Abdominal distention and vomiting. Bloated abdomen x 2 days. Nausea and vomiting. COMPARISONS: ABDOMEN/PELVIS W/O 03/01/2018 1:32 AM. TECHNIQUE: Routine axial helical CT imaging was performed through the abdomen and pelvis without IV contrast. Reconstructions: Coronal and sagittal. In accordance with CT protocol optimization, one or more of the following dose reduction techniques were utilized for this exam: automated exposure control, adjustment of mA and/or KV based on patient size, or use of iterative reconstructive technique. FINDINGS: Lung Bases: Opacity in dependent portion of left lower lobe, slightly decreased compared to prior CT. Mild dependent atelectasis in right lower lobe. Emphysematous changes in the lungs. Liver: Stable size and configuration of liver. Unremarkable noncontrast CT. Gallbladder/Bile Ducts: Unremarkable. Spleen: Unremarkable. Pancreas: Unremarkable. Adrenal Glands: Left adrenal nodule measuring 2.1 cm. Stable mild nodularity of right adrenal gland. Kidneys: Atrophic kidneys with multiple cysts, largest on left measuring 5.8 cm. Nonobstructive renal calcifications. Calculi in bilateral renal pelves with mild fullness and irregularity of right renal pelvis. No definite ureteral calculi or significant hydronephrosis. Peritoneal Cavity/Bowel: High-grade small bowel obstruction with prominent dilation of small bowel containing air and fluid. Transition point is visualized in right abdomen in region of distal ileum where there is distortion and swirled appearance of bowel. Colon is relatively collapsed. No free fluid, free air or adenopathy. Appendix not definitively seen. Pelvic Organs: Several small bladder calculi. No bladder wall thickening. Prostate measures 4.4 cm transverse. Vasculature: Atherosclerotic vascular disease including coronary artery disease. No aneurysms or other significant abnormality. Bones: Bones are osteopenic with degenerative changes. No acute osseous abnormality. Other: None. IMPRESSION: 1. High-grade small bowel obstruction with transition point in right abdomen in region of distal ileum. Obstruction may be due to adhesions although internal hernia or other causes of obstruction are not excluded. 2. Nephrolithiasis including calculi in bilateral renal pelves. There is mild fullness and irregularity of right renal pelvis, possibly related to calculi although superimposed infection is not excluded. Correlate clinically and with urinalysis. No ureteral calculus. 3. Bladder calculi. RADIA
[2019-10-26] MEDS ORDERED: ONDANSETRON 4 MG/2 ML VIAL IVP PRN (03:30)
--- NOTE | 2019-10-26 04:42 | HISTORY & PHYSICAL EXAMINATION ---
Chief Complaint - Chief Complaint Chief Complaint: Abdominal distention History of Present Illness - Admitted From Admitted From:: Home - History Obtained From Records Reviewed: Yes History obtained from: Patient, ER Physician, EMR - History of Present Illness HPI Comment/Other: This is a 67-year-old male with a past medical history significant for cerebrovascular accident with residual left-sided weakness, prior history of small bowel obstruction, tobacco use who presents today complaining of worsening abdominal distention. He states his symptoms began a few days ago and have been progressing. He has had associated abdominal pain along with multiple episodes of nausea and nonbloody emesis. He reports he is also not had a bowel movement for a couple of days. He reports no fevers, chest pain, dyspnea, dysuria, rash. He reports that he takes no medications at home and denies history of abdominal surgeries. He reports poor oral intake over the same period of time and poor appetite. He was admitted about a year and a half ago for similar symptoms and treated conservatively for small bowel obstruction at that time. He tells me he was hospitalized a few months ago as well at [facility] for a "heart attack". He states he did not have an angiogram completed and he was not discharged on any medications. He does not have a primary care doctor. He no longer drinks alcohol but continues to smoke 2 packs a day. In the emergency department, he is found to be afebrile with temperature of 36.8 degrees. He was tachycardic with a heart rate of 116. His blood pressure is 1 30-1 01. He was tachypneic with respiratory of 24 but saturating well on room air. Labs were significant for a white count of 13.7, BUN of 64, creatinine of 3.0. Lactic acid was normal. He underwent a CT of the abdomen and pelvis which revealed a high-grade small bowel obstruction with transition point in the right abdomen in the region of the distal ileum. He was also found to have atrophic kidneys with multiple cysts as well as nonobstructive renal calcifications. NG tube was placed in the emergency department and medicine was consulted for admission given the small bowel obstruction. The emergency room physician did speak with general surgery and a consult has been placed. I did discuss goals of care with the patient and he would like to be a full code. History - Past Medical History Cardiovascular: reports: None Respiratory: reports: None Neuro: reports: CVA Endocrine/Autoimmune: reports: None GI: reports: None : reports: None MRSA Hx?: No - Family & Social History Family History Comment/Other: He reports no family history. Living arrangement: At home Living Situation: With spouse/s.o. Social History Notes: He lives at home with his and is now retired. 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 He lives with his at home. He no longer drinks alcohol after quitting 1 year ago. He previously drank about half gallon of whiskey a week. He continues to smoke 2 packs of cigarettes a day since the age of 16. He also uses marijuana about once a week. - POLST Patient has POLST: No Meds/Allgy - Home Medications Home Medications: Ambulatory Orders Medication Instructions Recorded Confirmed No Known Home Medications 03/01/18 03/01/18 - Allergies Allergies/Adverse Reactions: Allergies Allergy/AdvReac Type Severity Reaction Status Date / Time No Known Drug Allergies Allergy Verified 10/26/19 01:09 Review of Systems - Constitutional Constitutional: reports: Poor appetite. denies: Fatigue, Fever, Chills - Cardiovascular Cariovascular: denies: Chest pain, Exertional dyspnea, Decr. exercise tolerance - Respiratory Respiratory: denies: Cough, SOB at rest, SOB with exertion - Gastrointestinal Gastrointestinal: reports: Abdominal pain, Abdominal distention, Constipation, Nausea, Vomiting, Bloating, Poor appetite. denies: Diarrhea, Alejandro blood emesis - Genitourinary Genitourinary: denies: Dysuria, Frequency, Urgency - Musculoskeletal Musculoskeletal: reports: Muscle weakness - Integumentary Integumentary: denies: Rash - Neurological Neurological: reports: Focal weakness. denies: Headache, Numbness - All Other Systems All Other Systems: reports: Reviewed and negative Prior Level of Functionality: He uses a wheelchair at baseline given he has significant left-sided deficits after stroke in 2008. Exam - Vital Signs Reviewed Vital Signs: Yes Vital Signs: Vital Signs x48h Temp Pulse Resp BP Pulse Ox 10/26/19 03:41 88 20 152/64 H 95 10/26/19 01:04 100 16 99/73 94 10/25/19 23:44 36.8 C 116 H 24 138/101 H 99 - Physical Exam General Appearance: positive: Alert, Mild distress Eyes Bilateral: positive: Normal inspection, Conjunctivae nml ENT: positive: ENT inspection nml, Dry mucous membranes, Other (NG tube in place.) Neck: positive: Nml inspection Respiratory: positive: No respiratory distress. negative: Wheezes, Rales, Rhonchi Cardiovascular: positive: Regular rate & rhythm, No murmur. negative: Tachycardia, Bradycardia, Systolic murmur Abdomen: positive: Tenderness (Mild diffuse tenderness.), Abnml bowel sounds (Hypoactive bowel sounds), Other (Distended.). negative: Non-tender, No distention, Guarding, Rebound Skin: positive: No rash, Warm, Dry Extremities: positive: No pedal edema, Other (He has decreased range of motion in his left upper and lower extremities.) Neurologic/Psychiatric: positive: Oriented x3, Other (He has 0 out of 5 motor strength in the left upper extremity and about 2 out of 5 motor strength in the left lower extremity. He has decreased sensation in those extremities. Sensation is intact over the right extremities.). negative: Disoriented to person, Disoriented to place, Disoriented to time Conclusion/Plan - Problem List (1) Small bowel obstruction Conclusion/Plan: This is evident on the CT of the abdomen and pelvis. Concern is for a small bowel obstruction with transition point in the right abdomen in the region of the distal ileum. Radiology made note that this may be due to a adhesions although cannot exclude an internal hernia or other causes of obstruction. NG tube has been placed in the emergency department. We will continue with n.p.o. status and IV hydration with lactated Ringer's. Will use Zofran as needed for nausea. Morphine as needed for pain control. Will consider Gastrografin challenge if there is no improvement over the next few hours. General surgery has been consulted and appreciate their recommendations. (2) Acute renal insufficiency Conclusion/Plan: His creatinine is elevated at 3.0 and his BUN is 64. He had a similar presentation during his last admission.Suspect this injury is prerenal given he appears dehydrated and has had poor oral intake. The CT of the abdomen pelvis did note that he does have atrophic kidneys with multiple cysts. For the time being, we will continue him on lactated Ringer's and monitor his renal function and urine output. (3) History of CVA with residual deficit Conclusion/Plan: He has history of CVA in 2008 with residual left-sided weakness. He ambulates with a wheelchair at baseline. He is not on aspirin or statin and he states he has never been told to take these in the past. Will need to discuss discharging him on aspirin and statin given his history of stroke. - Lab Results Lab results reviewed: Yes Thaddeus Bones: 10/26/19 05:35 10/26/19 05:35 - Diagnostic Imaging Results Diagnostic Imaging Results: positive: Final report reviewed Core Measures - Anticipated LOS I expect patient to be DC'd or transferred within 96 hours.: Yes - Issues Hospital Issues and Management Plan: This is a [age]-year-old male with small bowel obstruction who will be admitted for further management. NG tube is in place and general surgery has been consul john. - DVT/VTE - Prophylaxis VTE/DVT Device ordered at admit?: Yes VTE/DVT Prophylaxis med ordered at admit?: Yes
[2019-10-26 05:44] LABS: BASOPHILS % (AUTO) 0.1 %; EOSINOPHILS # (AUTO) 0.1 10^3/uL (0.0-0.7); EOSINOPHILS % (AUTO) 1.5 %; HGB - HEMOGLOBIN 12.6 g/dL (14.0-18.0); LYMPHOCYTES # (AUTO) 1.4 10^3/uL (1.5-3.5); LYMPHOCYTES % (AUTO) 14.3 %; MEAN CORPUSCULAR HEMOGLOBIN 29.3 pg (27.0-31.0); MEAN CORPUSCULAR HGB CONC 30.9 g/dL (32.0-36.0); MEAN CORPUSCULAR VOLUME 94.9 fL (80.0-94.0); MEAN PLATELET VOLUME 8.4 fL (7.4-11.4); MONOCYTES % (AUTO) 10.8 %; NEUTROPHILS # (AUTO) 6.9 10^3/uL (1.5-6.6); PLT - PLATELET COUNT 244 10^3/uL (130-450); RED CELL DISTRIBUTION WIDTH 14.8 % (12.0-15.0); WHITE BLOOD COUNT 9.5 x10^3/uL (4.8-10.8)
[2019-10-26 05:57] LABS: CALCIUM 7.4 mg/dL (8.5-10.3); CREATININE 2.7 mg/dL (0.6-1.2); MAGNESIUM 2.1 mg/dL (1.7-2.8); PHOSPHORUS 5.1 mg/dL (2.5-4.6)
[2019-10-26 05:58] LABS: HB2 TOTAL 11.9 g/dL; HEMOGLOBIN A1C 0.42 g/dL; HEMOGLOBIN A1C % 5.4 % (4.6-6.2)
[2019-10-26] MEDS: LACTATED RINGERS 1,000 ML IV SCH ×2 (06:34→17:18)
[2019-10-26] MEDS: PANTOPRAZOLE 40 MG VIAL IVP SCH (06:34)
--- NOTE | 2019-10-26 07:51 | PHARMACY PROGRESS NOTE ---
- Best Possible Medication History Admit Date and Time: 10/26/19 0330 Processed by: Pharmacy Medication History completed: Yes Patient Interview: Completed (NO HOME MEDICATIONS PER PATIENT) As the person ultimately responsible for medication therapy, providers are able to order a medication from an existing home medication list in [facility] via the "Reconcile Routine" prior to Confirmation of that medication by support teacher. Such practice is discouraged except when the physician, in their clinical judgment, deems that a medical need exists for a medication without regard to previous use.
[2019-10-26 08:07] LABS: BILIRUBIN,URINE NEGATIVE (NEGATIVE); GLUCOSE, URINE (UA) NEGATIVE (NEGATIVE); KETONES,URINE (UA) TRACE mg/dL (NEGATIVE); LEUKOCYTE ESTERASE, URINE LARGE (NEGATIVE); NITRITE,URINE NEGATIVE (NEGATIVE); OCCULT BLOOD,URINE SMALL (NEGATIVE); PROTEIN,URINE 30 mg/dL (NEGATIVE); UROBILINOGEN,URINE 0.2 (NORMAL) E.U./dL (NORMAL)
[2019-10-26 08:10] LABS: BACTERIA,URINE Many /HPF (None Seen); CLARITY,URINE CLOUDY (CLEAR); RBC,URINE 0-5 /HPF (0-5); SQUAMOUS EPITHELIAL CELL,UR RARE Squamous (<= Few); WBC CLUMPS,URINE PRESENT
[2019-10-26] MEDS: HEPARIN 5,000 UNIT/ML VIAL SUBQ SCH ×2 (08:45→22:07)
[2019-10-26] MEDS ORDERED: DIATR MEGLU/DIATRIZOATE SODIUM 120 ML BOTTLE PO ONE (08:52)
--- NOTE | 2019-10-26 09:44 | XRAY Report ---
Reason: NG tube placement. SBO. Procedure Date: 10/26/2019 Accession Number: [id number] / [id number] Procedure: XR - Abdomen 1 View X-Ray CPT Code: 93890 Final Report FULL RESULT: EXAM: ABDOMEN RADIOGRAPHY, PORTABLE 1 VIEW EXAM DATE: 10/26/2019 07:30 AM. CLINICAL HISTORY: NG tube placement. Small bowel obstruction. COMPARISON: ABDOMEN 2 VIEW 03/03/2018 7:53 AM. ABDOMEN/PELVIS CT W/ 10/26/2019 1:15 AM and previous studies. TECHNIQUE: 0715 hour AP supine portable view. FINDINGS: Bowel Gas Pattern: Moderately to markedly dilated small and large bowel, gas filled, similar to recent CT. Other: Nasogastric tube in place with distal tip in the proximal stomach. IMPRESSION: Nasogastric tube tip in the proximal stomach. Persistent gaseous dilatation of small and large bowel. RADIA
--- NOTE | 2019-10-26 09:46 | XRAY Report ---
Reason: SBO Procedure Date: 10/26/2019 Accession Number: [id number] / [id number] Procedure: XR - No-Charge 1V Abdomen CPT Code: 40117 Final Report FULL RESULT: EXAM: ABDOMEN RADIOGRAPHY, PORTABLE 1 VIEW EXAM DATE: 10/26/2019 09:31 AM. CLINICAL HISTORY: Small bowel obstruction in a 69-year-old male. COMPARISON: ABDOMEN 1 VIEW 10/26/2019 7:15 AM. TECHNIQUE: 0914 hour AP portable view. FINDINGS: Bowel Gas Pattern: Moderate to marked gaseous dilatation of small and large bowel, similar to recent prior studies. Other: Nasogastric tube in the proximal stomach with contrast in the upper stomach, post-injection. IMPRESSION: Nasogastric tube in the proximal stomach with satisfactory injection of contrast. Persistent moderate to marked gaseous dilatation of small and large bowel. RADIA
--- NOTE | 2019-10-26 11:06 | CONSULTATION NOTE ---
Referring Provider Name of Referring Provider:: Alf Consult Date: 10/26/19 Chief Complaint - Chief Complaint Chief Complaint: Abd distention / No BM History of Present Illness - Admitted From Admitted From:: ED - History Obtained From Records Reviewed: Yes History obtained from: Chart / Patient / Dr Milner Exam Limitations: None - History of Present Illness HPI Comment/Other: Timing - onset: How many days ago (2) Timing - duration: Days (2) Timing - details: Abrupt onset, Still present Quality: Cramping, Aching, Fullness/distended Location: All over / everywhere Radiation: Lower back Improved by: Vomiting Worsened by: Eating Associated symptoms: Nausea, Vomiting. No: Fever, Diarrhea, Constipation, Melena Similar symptoms before: Diagnosis (bowel obstruction February 2018, seen here at [facility] for it and resolved nonoperatively.) Recently seen: Not recently seen History - Past Medical History Cardiovascular: reports: None Respiratory: reports: None Neuro: reports: CVA Endocrine/Autoimmune: reports: None GI: reports: None : reports: None Musculoskeletal: reports: Hemiplegia Derm: reports: None MRSA Hx?: No Other Past Medical History: Hx 5 strokes, left side flaccid, [place].Also has had SBO in past. - Family & Social History Family History Comment/Other: He reports no family history. Living arrangement: At home Living Situation: With spouse/s.o. Social History Notes: He lives at home with his and is now retired. 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 He lives with his at home. He no longer drinks alcohol after quitting 1 year ago. He previously drank about half gallon of whiskey a week. He continues to smoke 2 packs of cigarettes a day since the age of 16. He also uses marijuana about once a week. - POLST Patient has POLST: No Meds/Allgy - Home Medications Home Medications: Ambulatory Orders Medication Instructions Recorded Confirmed No Known Home Medications 03/01/18 10/26/19 - Allergies Allergies/Adverse Reactions: Allergies Allergy/AdvReac Type Severity Reaction Status Date / Time No Known Drug Allergies Allergy Verified 10/26/19 01:09 Review of Systems - Constitutional Constitutional: reports: Fatigue, Weakness - Gastrointestinal Gastrointestinal: reports: Abdominal distention, Other (No BM in a few days) Exam - Vital Signs Reviewed Vital Signs: Yes Vital Signs: Vital Signs x48h Temp Pulse Pulse Resp BP BP Pulse Ox 10/26/19 08:34 37.0 C 104 H 19 145/89 H 92 10/26/19 04:11 37.0 C 61 18 126/66 94 10/26/19 03:41 88 20 152/64 H 95 - Physical Exam General Appearance: positive: No acute distress, Lethargic Eyes Bilateral: positive: Normal inspection Respiratory: positive: Chest non-tender, No respiratory distress, Wheezes Cardiovascular: positive: Regular rate & rhythm Abdomen: positive: Non-tender, Other (Mod distention. Tympanitic w/a few high pitched bowel sounds. No rushing.) Conclusion and Plan - Lab Results Laboratory Results 10/26/19 07:50: Urine Color YELLOW, Urine Clarity CLOUDY, Urine pH 6.0, Ur Specific [place] 1.020, Urine Protein 30 H, Urine Glucose (UA) NEGATIVE, Urine Ketones TRACE, Urine Occult Blood SMALL H, Urine Nitrite NEGATIVE, Urine Bilirubin NEGATIVE, Urine Urobilinogen 0.2 (NORMAL), Ur Leukocyte Esterase LARGE H, Urine RBC 0-5, Urine WBC >25 H, Urine WBC Clumps PRESENT, Ur Squamous Epith Cells RARE Squamous, Urine Bacteria Many H, Urine Culture Comments INDICATED 10/26/19 05:35: Glycated Hemoglobin 5.4, Estim Average Glucose 108 H 10/26/19 05:35: Sodium 141, Potassium 3.6, Chloride 110, Carbon Dioxide 22, Anion Gap 9.0, BUN 63 H, Creatinine 2.7 H, Estimated GFR (MDRD) 24 L, Glucose 112 H, Calcium 7.4 L, Phosphorus 5.1 H, Magnesium 2.1 10/26/19 05:35: WBC 9.5, RBC 4.30 L, Hgb 12.6 L, Hct 40.8 L, MCV 94.9 H, MCH 29.3, MCHC 30.9 L, RDW 14.8, Plt Count 244, MPV 8.4, Neut # (Auto) 6.9 H, Lymph # (Auto) 1.4 L, [place] # (Auto) 1.0, Eos # (Auto) 0.1, Baso # (Auto) 0.0, Absolute Nucleated RBC 0.00, Nucleated RBC % 0.0 10/26/19 00:35: Lactic Acid 1.5 10/26/19 00:30: PT 12.5, INR 1.1, APTT 24.6 L 10/26/19 00:30: Sodium 137, Potassium 3.7, Chloride 104, Carbon Dioxide 20 L, Anion Gap 13.0, BUN 64 H, Creatinine 3.0 H, Estimated GFR (MDRD) 21 L, Glucose 132 H, Calcium 7.9 L, Magnesium 2.2, Total Bilirubin 0.8, AST 19, ALT 12, Alkal ine Phosphatase 66, Total Protein 7.1, Albumin 3.1 L, Globulin 4.0, Albumin/Globulin Ratio 0.8 L, Lipase 31, Ethyl Alcohol < 5.0 10/26/19 00:30: WBC 13.7 H, RBC 4.55 L, Hgb 13.4 L, Hct 43.7, MCV 96.0 H, MCH 29.5, MCHC 30.7 L, RDW 14.9, Plt Count 305, MPV 8.6, Neut # (Auto) 11.5 H, Lymph # (Auto) 1.0 L, [place] # (Auto) 1.1 H, Eos # (Auto) 0.0, Baso # (Auto) 0.0, Absolute Nucleated RBC 0.00, Nucleated RBC % 0.0 - Diagnostic Imaging Results Diagnostic Imaging Results: positive: Final report reviewed - Diagnosis Diagnosis: Ileus / unk etiology - Plan Plan: Gastrograffin challenge (in progress) Return flow enemas may also be considered. Cont NGT / NPO
[2019-10-26] MEDS: SODIUM CHLORIDE FLUSH 0.9% 10 ML SYRINGE IVP SCH ×2 (13:23→17:18)
--- NOTE | 2019-10-26 13:35 | XRAY Report ---
Reason: bowel obstruction Procedure Date: 10/26/2019 Accession Number: [id number] / [id number] Procedure: XR - No-Charge 1V Abdomen CPT Code: 30951 Final Report FULL RESULT: EXAM: ABDOMEN RADIOGRAPHY, PORTABLE 1 VIEW EXAM DATE: 10/26/2019 01:21 PM. CLINICAL HISTORY: Bowel obstruction reassessment in a 69-year-old male. COMPARISON: No charge 1 view abdomen 10/26/2019 9:14 AM and previous. TECHNIQUE: 1258 hours AP supine portable view. FINDINGS: Bowel Gas Pattern: Marked dilatation of both small and large bowel with gas, as previously. Small amount of contrast in the proximal stomach, unchanged from 0914 hour study of earlier today. Other: Nasogastric tube remains in the proximal stomach, as previous. IMPRESSION: Marked gaseous dilatation of both small and large bowel, unchanged from earlier study of today. No mobility of contrast in the upper aspect of the stomach, placed earlier today. RADIA
--- NOTE | 2019-10-26 21:49 | XRAY Report ---
Reason: bowel obstruction Procedure Date: 10/26/2019 Accession Number: [id number] / [id number] Procedure: XR - No-Charge 1V Abdomen CPT Code: 85403 Addended Final Report FULL RESULT: EXAM: ABDOMEN RADIOGRAPHY EXAM DATE: 10/26/2019 09:10 PM. CLINICAL HISTORY: Bowel obstruction. COMPARISON: NO CHARGE 1V ABDOMEN 10/26/2019 12:58 PM ABDOMEN/PELVIS W/ 10/26/2019 1:15 AM NO CHARGE 1V ABDOMEN 10/26/2019 9:14 AM ABDOMEN 1 VIEW 10/26/2019 7:15 AM. TECHNIQUE: 1 view. FINDINGS: Bowel Gas Pattern: Markedly dilated bowel in the abdomen and pelvis. Residual contrast is present in stomach. Some contrast has progressed into dilated small bowel loops in abdomen and pelvis. Other: Enteric tube tip in stomach with sidehole in distal esophagus. Calcifications in bilateral mid abdomen, probably in renal fossa. IMPRESSION: 1. Persistent marked bowel distention. 2. Oral contrast remains in stomach with progression of some contrast into dilated small bowel. 3. Enteric tube tip in stomach with sidehole in distal esophagus. RADIA The call report notification system was initiated by Dr. Margi Garner at 09:48 PM on 10/26/2019. ADDENDUM: 10/26/19 21:53 The above call report findings were discussed with covering provider by Dr. Margi Garner at 09:53 PM on 10/26/2019.
[2019-10-27] MEDS: LACTATED RINGERS 1,000 ML IV SCH ×2 (03:43→15:45)
[2019-10-27] MEDS: SODIUM CHLORIDE FLUSH 0.9% 10 ML SYRINGE IVP SCH ×3 (03:43→15:55)
[2019-10-27] MEDS: MORPHINE 2 MG/ML CARPUJECT IVP PRN (03:43)
[2019-10-27 06:04] LABS: BASOPHILS % (AUTO) 0.2 %; EOSINOPHILS # (AUTO) 0.1 10^3/uL (0.0-0.7); HGB - HEMOGLOBIN 10.8 g/dL (14.0-18.0); LYMPHOCYTES # (AUTO) 1.3 10^3/uL (1.5-3.5); LYMPHOCYTES % (AUTO) 21.4 %; MEAN CORPUSCULAR HGB CONC 30.3 g/dL (32.0-36.0); MEAN CORPUSCULAR VOLUME 95.7 fL (80.0-94.0); MEAN PLATELET VOLUME 9.2 fL (7.4-11.4); MONOCYTES # (AUTO) 0.6 10^3/uL (0.0-1.0); MONOCYTES % (AUTO) 9.6 %; NEUTROPHILS # (AUTO) 4.1 10^3/uL (1.5-6.6); NEUTROPHILS % (AUTO) 67.5 %; PLT - PLATELET COUNT 195 10^3/uL (130-450); RED BLOOD COUNT 3.72 10^6/uL (4.70-6.10); RED CELL DISTRIBUTION WIDTH 14.7 % (12.0-15.0)
[2019-10-27] MEDS: SODIUM CHLORIDE FLUSH 0.9% 10 ML SYRINGE IVP PRN (06:14)
[2019-10-27] MEDS: PANTOPRAZOLE 40 MG VIAL IVP SCH (06:14)
[2019-10-27 06:21] LABS: CALCIUM 7.6 mg/dL (8.5-10.3); CREATININE 2.5 mg/dL (0.6-1.2); MAGNESIUM 2.1 mg/dL (1.7-2.8); PHOSPHORUS 3.5 mg/dL (2.5-4.6)
[2019-10-27] MEDS ORDERED: METOCLOPRAMIDE 10 MG/2 ML VIAL IVP PRN (08:49)
[2019-10-27] MEDS ORDERED: cefTRIAXone 1 GM in SODIUM CHLORIDE 0.9% MINIBAG 100 ML IV SCH (09:00)
[2019-10-27] MEDS: HEPARIN 5,000 UNIT/ML VIAL SUBQ SCH ×2 (09:54→21:45)
--- NOTE | 2019-10-27 09:56 | XRAY Report ---
Reason: bowel obstruction Procedure Date: 10/27/2019 Accession Number: [id number] / [id number] Procedure: XR - No-Charge 1V Abdomen CPT Code: 27129 Final Report FULL RESULT: EXAM: ABDOMEN RADIOGRAPHY EXAM DATE: 10/27/2019 09:30 AM. CLINICAL HISTORY: Bowel obstruction. COMPARISON: NO CHARGE 1V ABDOMEN 10/26/2019 8:53 PM ABDOMEN/PELVIS W/O 03/01/2018 1:32 AM. TECHNIQUE: 1 view. FINDINGS: Bowel Gas Pattern: Interval progression of oral contrast into the distal colon. Dilated loops of small bowel which are air-filled again seen. Maximum caliber of gas-filled dilated structure is in the right upper quadrant, up to 10.3 cm. In the right mid abdomen is a newly seen focally hyperdense structure, desiccated contrast versus vicarious excretion into the gallbladder versus hyperdense material within the renal collecting system which would be indicative of urinary obstruction. Please note that this finding is new compared to 10/26/2019 and felt to represent an acute change. Other: Also newly seen is apparent hyperdense material projecting over the lower pelvis. IMPRESSION: Persistent markedly increased diameter of bowel, up to 10.2 cm. Interval progression of contrast into the distal colon. Interval finding of hyperdense material in the right mid abdomen which is indeterminate as described above. Interval finding of hyperdense material projecting over the pelvis. CRITICAL RESULT: The findings were discussed with TAMARA Curtis on 10/27/2019 at 9:58 AM. This reveals that the patient is doing well and recently had a large bowel movement, hyperdense material projecting over the pelvis is felt to be external to the patient. RADIA
[2019-10-27] MEDS: POTASSIUM CHLOR 10 MEQ/100 ML 10 MEQ/100 ML BAG IV SCH ×3 (11:20→15:55)
--- NOTE | 2019-10-27 12:05 | PROVIDER PROGRESS NOTE ---
Subjective - General Admit Date: 10/26/19 - Review of Systems Drain Type: NGT Drain Output Description: Greenish Approximate mls Output: 300 General: positive: No symptoms Gastrointestinal: positive: Other (Passing liquid stools/flatus) All Other Systems: positive: Reviewed and negative Objective - Patient Data Vital Signs: Vital Signs x48h Temp Pulse Pulse Resp BP Pulse Ox 10/27/19 08:00 36.4 C L 72 72 20 102/46 L 93 10/27/19 05:00 36.3 C L 77 20 126/74 96 Weight: Weight 10/25/19 10/26/19 10/27/19 23:59 23:59 23:59 Weight (kg) 65.771 kg 59.5 kg Intake & Output: Intake and Output Totals x24h 10/25/19 10/26/19 10/27/19 23:59 23:59 23:59 Intake Total 3955 1300 Output Total 800 875 Balance 3155 425 - Lab Results Lab Results: 10/27/19 05:15 10/27/19 05:15 Other Lab Results: Lab Results x24hrs 10/27/19 10/27/19 Range/Units 05:15 05:15 WBC 6.0 (4.8-10.8) x10^3/uL RBC 3.72 L (4.70-6.10) 10^6/uL Hgb 10.8 L (14.0-18.0) g/dL Hct 35.6 L (42.0-52.0) % MCV 95.7 H (80.0-94.0) fL MCH 29.0 (27.0-31.0) pg MCHC 30.3 L (32.0-36.0) g/dL RDW 14.7 (12.0-15.0) % Plt Count 195 (130-450) 10^3/uL MPV 9.2 (7.4-11.4) fL Neut # (Auto) 4.1 (1.5-6.6) 10^3/uL Lymph # (Auto) 1.3 L (1.5-3.5) 10^3/uL Walsh # (Auto) 0.6 (0.0-1.0) 10^3/uL Eos # (Auto) 0.1 (0.0-0.7) 10^3/uL Baso # (Auto) 0.0 (0.0-0.1) 10^3/uL Absolute Nucleated RBC 0.00 x10^3/uL Nucleated RBC % 0.0 /100WBC Sodium 143 (135-145) mmol/L Potassium 3.2 L (3.5-5.0) mmol/L Chloride 115 H (101-111) mmol/L Carbon Dioxide 19 L (21-32) mmol/L Anion Gap 9.0 (6-13) BUN 54 H (6-20) mg/dL Creatinine 2.5 H (0.6-1.2) mg/dL Estimated GFR (MDRD) 26 L (>89) Glucose 75 (70-100) mg/dL Calcium 7.6 L (8.5-10.3) mg/dL Phosphorus 3.5 (2.5-4.6) mg/dL Magnesium 2.1 (1.7-2.8) mg/dL - Current Medications Current Medications: Current Medications Generic Name Dose Route Start Last Admin Trade Name Freq PRN Reason Stop Dose Admin Heparin Sodium (Porcine) 5,000 unit 10/26/19 09:00 10/27/19 09:54 SUBQ 5,000 unit BID TOOTIE Administration Lactated Ringer's 1,000 mls @ 100 mls/hr 10/26/19 04:00 10/27/19 03:43 Lr IV 100 mls/hr .Q10H TOOTIE Administration Ceftriaxone Sodium 1 gm/ 100 mls @ 200 mls/hr 10/27/19 09:00 10/27/19 10:30 Sodium Chloride IV Infused DAILY TOOTIE Infusion Morphine Sulfate 2 mg 10/26/19 03:30 10/27/19 03:43 Morphine (Carpuject) IVP 2 mg Q2HR PRN Administration Pain 8 to 10 Pantoprazole Sodium 40 mg 10/26/19 07:00 10/27/19 06:14 Protonix IVP 40 mg QDAC TOOTIE Administration Sodium Chloride 10 ml 10/26/19 03:30 10/27/19 06:14 Normal Saline Flush 0.9% IVP 10 ml PRN PRN Administration NEEDED PER PROVIDER ORDERS Sodium Chloride 10 ml 10/26/19 09:00 10/27/19 09:53 Normal Saline Flush 0.9% IVP 10 ml 0100,0900,1700 TOOTIE Administration Impression/Plan - Problem List Problem List: Bowel obst resolving Clamp NGT for 4 hrs and check for residual . See orders. Clear liquids if NGT drainage less than 100cc
--- NOTE | 2019-10-27 16:06 | PROVIDER PROGRESS NOTE ---
Subjective - Prog Note Date Prog Note Date: 10/27/19 - Subjective Pt reports feeling: Improved Subjective: pt report he did not have abdominal pain, no N/V. pt had total three bowel movement today morning and last night. pt had a large bowel movement on last night. Nurse report pt had no residues on NG and pt tolerate clear liquid and no N/V. new abdomen Xray reveal passed contrast into the distal colon but persistent markedly increased diameter of bowel up to 10.2 cm. pt present good bowel sound at all quadrant. Current Medications - Current Medications Current Medications: Active Medications Heparin Sodium (Porcine) () 5,000 unit SUBQ BID [facility] Last Admin: 10/27/19 09:54 Dose: 5,000 unit Lactated Ringer's (Lr) 1,000 mls @ 100 mls/hr IV .Q10H [facility] Last Admin: 10/27/19 15:45 Dose: 100 mls/hr Ceftriaxone Sodium 1 gm/ (Sodium Chloride) 100 mls @ 200 mls/hr IV DAILY [facility] Last Infusion: 10/27/19 10:30 Dose: Infused Morphine Sulfate (Morphine (Carpuject)) 2 mg IVP Q2HR PRN PRN Reason: Pain 8 to 10 Last Admin: 10/27/19 03:43 Dose: 2 mg Ondansetron HCl (Zofran Inj) 4 mg IVP Q6HR PRN PRN Reason: Nausea / Vomiting Pantoprazole Sodium (Protonix) 40 mg IVP QDAC [facility] Last Admin: 10/27/19 06:14 Dose: 40 mg Sodium Chloride (Normal Saline Flush 0.9%) 10 ml IVP PRN PRN PRN Reason: NEEDED PER PROVIDER ORDERS Last Admin: 10/27/19 06:14 Dose: 10 ml Sodium Chloride (Normal Saline Flush 0.9%) 10 ml IVP 0100,0900,1700 [facility] Last Admin: 10/27/19 15:55 Dose: Not Given No Known Home Medications 03/01/18 Objective - Vital Signs/Intake & Output Reviewed Vital Signs: Yes Intake & Output: Intake & Output 10/24/19 10/25/19 10/26/19 10/27/19 23:59 23:59 23:59 23:59 Intake Total 3955 2740 Output Total 800 1175 Balance 3155 1565 - Objective General Appearance: positive: Alert, Mild distress. negative: Lethargic Eyes Bilateral: positive: Normal inspection, PERRL ENT: positive: ENT inspection nml, Pharynx nml, No signs of dehydration, Purulent nasal drainage. negative: Dry mucous membranes Neck: positive: Nml inspection, Thyroid nml, No JVD, Trachea midline. negative: Thyromegaly, Lymphadenopathy (R), Lymphadenopathy (L), Stiff neck, Tracheal deviation Respiratory: positive: Chest non-tender, No respiratory distress, Breath sounds nml. negative: Wheezes, Rales, Rhonchi Cardiovascular: positive: Regular rate & rhythm, No murmur, No gallop. n egative: Irregularly irregular, Extrasystoles, Tachycardia, Bradycardia, JVD present, Systolic murmur, Diastolic murmur Peripheral Pulses: 2+ Radial (R), 2+ Radial (L), 2+ Dorsalis pedis (R), 2+ Dorsalis pedis (L) Abdomen: positive: Non-tender, No organomegaly, Nml bowel sounds, No distention. negative: Tenderness, Guarding, Rebound Back: positive: Nml inspection. negative: CVA tenderness (R), CVA tenderness (L) Skin: positive: Color nml, No rash, Warm, Dry. negative: Cyanosis, Diaphoresis, Pallor Extremities: positive: Non-tender. negative: Calf tenderness, Lily's sign/cords Neurologic/Psychiatric: positive: Sensation nml. negative: Weakness, Sensory loss, Facial droop, Slurred/abnml speech, Depressed mood/affect - Lab Results Fish Bones: 10/27/19 05:15 10/27/19 05:15 Other Labs: Lab Results x24hrs 10/27/19 10/27/19 Range/Units 05:15 05:15 WBC 6.0 (4.8-10.8) x10^3/uL RBC 3.72 L (4.70-6.10) 10^6/uL Hgb 10.8 L (14.0-18.0) g/dL Hct 35.6 L (42.0-52.0) % MCV 95.7 H (80.0-94.0) fL MCH 29.0 (27.0-31.0) pg MCHC 30.3 L (32.0-36.0) g/dL RDW 14.7 (12.0-15.0) % Plt Count 195 (130-450) 10^3/uL MPV 9.2 (7.4-11.4) fL Neut # (Auto) 4.1 (1.5-6.6) 10^3/uL Lymph # (Auto) 1.3 L (1.5-3.5) 10^3/uL Mclennan # (Auto) 0.6 (0.0-1.0) 10^3/uL Eos # (Auto) 0.1 (0.0-0.7) 10^3/uL Baso # (Auto) 0.0 (0.0-0.1) 10^3/uL Absolute Nucleated RBC 0.00 x10^3/uL Nucleated RBC % 0.0 /100WBC Sodium 143 (135-145) mmol/L Potassium 3.2 L (3.5-5.0) mmol/L Chloride 115 H (101-111) mmol/L Carbon Dioxide 19 L (21-32) mmol/L Anion Gap 9.0 (6-13) BUN 54 H (6-20) mg/dL Creatinine 2.5 H (0.6-1.2) mg/dL Estimated GFR (MDRD) 26 L (>89) Glucose 75 (70-100) mg/dL Calcium 7.6 L (8.5-10.3) mg/dL Phosphorus 3.5 (2.5-4.6) mg/dL Magnesium 2.1 (1.7-2.8) mg/dL ABX Reporting Has patient been on IV antibiotics over the past 48 hours?: No Sepsis Event Note (H) - Evaluation Current Stage of Sepsis: Ruled out Assessment/Plan - Problem List (1) Small bowel obstruction Impression: 10/27after pt had gastric challenge, pt had three bowel movement, pt tolerate clear liquid diet, pt had no residues in NG tube. it seems resolved clinically. But Xray of abdomen reveals still markedly dilation of bowel, and hyperdense material projection over the pelvis is external to the pt but unknown the etiology, but pt denies abdominal pain. pt's abdomen is soft and good bowel sound without tenderness, rebound or guided. will followup surgeon it seems pt tolerate clear diet very well, and no residues at NG tube, will continue clear diet per surgeon's recommendation continue IVF, pain control PRN, anti-emesis PRN (2) Acute renal insufficiency Conclusion/Plan: 10/27 improved. creatinine is 2.5 now, from 3.0 at the admission. agree that this injury is prerenal given he appears dehydrated and has had poor oral intake. pt's CT of the abdomen pelvis did note that he does have atrophic kidneys with multiple cysts. For the time being, we will continue him on lactated Ringer's and monitor his renal function and urine output, advise pt followup child support officer as out-pt (3) History of CVA with residual deficit table now. pt denies focal neurological dificits. 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 He has no aspirin or statin as he states he has never been told to take these in the past. This Will need to discuss discharging him on aspirin and statin given his history of stroke. (4)hyperkalemia K is 3.2, replacement and lab monitor
[2019-10-28] MEDS: LACTATED RINGERS 1,000 ML IV SCH (01:58)
[2019-10-28] MEDS: SODIUM CHLORIDE FLUSH 0.9% 10 ML SYRINGE IVP SCH ×3 (01:59→17:16)
[2019-10-28] MEDS: MORPHINE 2 MG/ML CARPUJECT IVP PRN ×3 (03:32→12:14)
[2019-10-28 05:45] LABS: BASOPHILS % (AUTO) 0.2 %; EOSINOPHILS # (AUTO) 0.2 10^3/uL (0.0-0.7); HGB - HEMOGLOBIN 10.9 g/dL (14.0-18.0); LYMPHOCYTES # (AUTO) 1.4 10^3/uL (1.5-3.5); LYMPHOCYTES % (AUTO) 25.5 %; MEAN CORPUSCULAR HEMOGLOBIN 28.9 pg (27.0-31.0); MEAN CORPUSCULAR HGB CONC 31.1 g/dL (32.0-36.0); MEAN CORPUSCULAR VOLUME 93.1 fL (80.0-94.0); MEAN PLATELET VOLUME 9.4 fL (7.4-11.4); MONOCYTES # (AUTO) 0.4 10^3/uL (0.0-1.0); MONOCYTES % (AUTO) 6.9 %; NEUTROPHILS # (AUTO) 3.5 10^3/uL (1.5-6.6); NEUTROPHILS % (AUTO) 63.2 %; PLT - PLATELET COUNT 186 10^3/uL (130-450); RED BLOOD COUNT 3.77 10^6/uL (4.70-6.10); RED CELL DISTRIBUTION WIDTH 14.5 % (12.0-15.0); WHITE BLOOD COUNT 5.5 x10^3/uL (4.8-10.8)
[2019-10-28 06:02] LABS: CALCIUM 7.4 mg/dL (8.5-10.3); MAGNESIUM 1.7 mg/dL (1.7-2.8); PHOSPHORUS 2.1 mg/dL (2.5-4.6)
[2019-10-28] MEDS: SODIUM CHLORIDE FLUSH 0.9% 10 ML SYRINGE IVP PRN ×2 (06:34→12:14)
[2019-10-28] MEDS: PANTOPRAZOLE 40 MG VIAL IVP SCH (06:34)
[2019-10-28] MEDS ORDERED: POTASSIUM CHLORIDE 20 MEQ TABLET PO ONE (07:06)
[2019-10-28] MEDS ORDERED: LACTATED RINGERS 1,000 ML IV SCH (09:02)
[2019-10-28] MEDS: POTASSIUM CHLOR 10 MEQ/100 ML 10 MEQ/100 ML BAG IV SCH ×3 (10:11→13:12)
[2019-10-28] MEDS: HEPARIN 5,000 UNIT/ML VIAL SUBQ SCH (10:16)
--- NOTE | 2019-10-28 12:06 | PROVIDER PROGRESS NOTE ---
Subjective - General Admit Date: 10/26/19 - Review of Systems Drain Type: NGT Drain Output Description: Greenish Approximate mls Output: 300 General: positive: No symptoms (Symptoms of SBO resolved) Gastrointestinal: positive: No symptoms, Other (Passing liquid stools/flatus) All Other Systems: positive: Reviewed and negative Objective - Patient Data Reviewed Vital Signs: Yes Vital Signs: Vital Signs x48h Temp Pulse Resp BP Pulse Ox 10/28/19 07:34 36.8 C 60 16 109/65 96 Weight: Weight 10/26/19 10/27/19 10/28/19 23:59 23:59 23:59 Weight (kg) 59.5 kg Intake & Output: Intake and Output Totals x24h 10/26/19 10/27/19 10/28/19 23:59 23:59 23:59 Intake Total 3955 3190 2183.000 Output Total 800 1225 250 Balance 3155 1965 1933.000 - Lab Results Lab Results: 10/28/19 05:18 10/28/19 05:18 Other Lab Results: Lab Results x24hrs 10/28/19 10/28/19 Range/Units 05:18 05:18 WBC 5.5 (4.8-10.8) x10^3/uL RBC 3.77 L (4.70-6.10) 10^6/uL Hgb 10.9 L (14.0-18.0) g/dL Hct 35.1 L (42.0-52.0) % MCV 93.1 (80.0-94.0) fL MCH 28.9 (27.0-31.0) pg MCHC 31.1 L (32.0-36.0) g/dL RDW 14.5 (12.0-15.0) % Plt Count 186 (130-450) 10^3/uL MPV 9.4 (7.4-11.4) fL Neut # (Auto) 3.5 (1.5-6.6) 10^3/uL Lymph # (Auto) 1.4 L (1.5-3.5) 10^3/uL Moore # (Auto) 0.4 (0.0-1.0) 10^3/uL Eos # (Auto) 0.2 (0.0-0.7) 10^3/uL Baso # (Auto) 0.0 (0.0-0.1) 10^3/uL Absolute Nucleated RBC 0.00 x10^3/uL Nucleated RBC % 0.0 /100WBC Sodium 140 (135-145) mmol/L Potassium 3.0 L (3.5-5.0) mmol/L Chloride 111 (101-111) mmol/L Carbon Dioxide 22 (21-32) mmol/L Anion Gap 7.0 (6-13) BUN 33 H (6-20) mg/dL Creatinine 2.0 H (0.6-1.2) mg/dL Estimated GFR (MDRD) 33 L (>89) Glucose 103 H (70-100) mg/dL Calcium 7.4 L (8.5-10.3) mg/dL Phosphorus 2.1 L (2.5-4.6) mg/dL Magnesium 1.7 (1.7-2.8) mg/dL - Current Medications Current Medications: Current Medications Generic Name Dose Route Start Last Admin Trade Name Freq PRN Reason Stop Dose Admin Heparin Sodium (Porcine) 5,000 unit 10/26/19 09:00 10/28/19 10:16 SUBQ 5,000 unit BID TOOTIE Administration Lactated Ringer's 1,000 mls @ 83.3 mls/hr 10/28/19 09:02 10/28/19 10:10 Lr IV 10/29/19 09:02 83.3 mls/hr .Q12H1M TOOTIE Administration Morphine Sulfate 2 mg 10/26/19 03:30 10/28/19 10:11 Morphine (Carpuject) IVP 2 mg Q2HR PRN Administration Pain 8 to 10 Pantoprazole Sodium 40 mg 10/26/19 07:00 10/28/19 06:34 Protonix IVP 40 mg QDAC TOOTIE Administration Sodium Chloride 10 ml 10/26/19 03:30 10/28/19 06:34 Normal Saline Flush 0.9% IVP 10 ml PRN PRN Administration NEEDED PER PROVIDER ORDERS Sodium Chloride 10 ml 10/26/19 09:00 10/28/19 10:12 Normal Saline Flush 0.9% IVP 10 ml 0100,0900,1700 TOOTIE Administration - Physical Exam General Appearance: positive: No acute distress, Other (NGT out) Impression/Plan - Problem List Problem List: Functional SBO resolved No further need to follow surgically
[2019-10-28] MEDS: NEUTRA-PHOS 250 MG TABLET PO SCH ×2 (13:12→17:15)
--- NOTE | 2019-10-28 13:35 | Discharge Plan ---
Discharge Plan Problem Reviewed?: Yes Disposition: Home, Self Care Condition: Stable Prescriptions: Aspirin [Adult Aspirin Regimen] 81 mg PO DAILY #15 tablet. Atorvastatin Calcium [Lipitor] 40 mg PO QPM #15 tablet Diet: Regular Activity Restrictions: Activity as Tolerated Shower Restrictions: No (fall precaution) Instruction Topics: Aspirin ASA chewable tablets, Atorvastatin tablets Health Concerns: small bowel obstruction, stroke Plan of Treatment: you had bowel movements, you tolerate regular diet, you have no abdominal pain or nausea or vomiting. your surgeon also considerate your small bowel obstruction is resolved. please keep active and eat healthy diet with more vegetable and fruits. You are prescribed Aspirin and Lipitor for your previous stroke. Care Goals: stabilization, and improved or resolved of your medical problems. Assessment: discussed and explained with you about the care plan, you state you understood Additional Instructions or Follow Up instructions: you may followup your PCP in 1-2 weeks. should your symptoms return or worsen, you may present ER or call 911 for help. No Smoking: If you smoke, Please STOP! Call for help.
--- NOTE | 2019-10-28 13:50 | DISCHARGE SUMMARY ---
Discharge Summary Admit Date: 10/26/19 Discharge Date: 10/28/19 Discharging Provider: Ata Curtis Primary Care Provider: Kerry Camacho Condition at Discharge: Stable Discharge Disposition: 01 Home, Self Care Discharge Facility Name: home - DIAGNOSES Admission Diagnoses: (1) Small bowel obstruction (2) Acute renal insufficiency (3) History of CVA with residual deficit Discharge Diagnoses with Status of Each Condition: (1) Small bowel obstruction resolved. pt tolerated regular diet without abdominal pain, nausea or vomiting. pt had bowel movements. Surgeon d/c pt as well. (2) Acute on chronic renal insufficiency improved. creatinine is 2.0 now from admission at 2.7 (3) History of CVA with residual deficit stable. pt has hx of CVA with left side weakness. but pt has no home meds for his CVA. now pt is prescribed aspirin and statin (4)hypokalemia resolved - HPI History of Present Illness: refer from Dr silverio's HPI on 10/26/19 This is a 67-year-old male with a past medical history significant for cerebrovascular accident with residual left-sided weakness, prior history of small bowel obstruction, tobacco use who presents today complaining of worsening abdominal distention. He states his symptoms began a few days ago and have been progressing. He has had associated abdominal pain along with multiple episodes of nausea and nonbloody emesis. He reports he is also not had a bowel movement for a couple of days. He reports no fevers, chest pain, dyspnea, dysuria, rash. He reports that he takes no medications at home and denies history of abdominal surgeries. He reports poor oral intake over the same period of time and poor appetite. He was admitted about a year and a half ago for similar symptoms and treated conservatively for small bowel obstruction at that time. He tells me he was hospitalized a few months ago as well at [facility] for a "heart attack". He states he did not have an angiogram completed and he was not discharged on any medications. He does not have a primary care doctor. He no longer drinks alcohol but continues to smoke 2 packs a day. In the emergency department, he is found to be afebrile with temperature of 36.8 degrees. He was tachycardic with a heart rate of 116. His blood pressure is 1 30-1 01. He was tachypneic with respiratory of 24 but saturating well on room air. Labs were significant for a white count of 13.7, BUN of 64, creatinine of 3.0. Lactic acid was normal. He underwent a CT of the abdomen and pelvis which revealed a high-grade small bowel obstruction with transition point in the right abdomen in the region of the distal ileum. He was also found to have atrophic kidneys with multiple cysts as well as nonobstructive renal calcifications. NG tube was placed in the emergency department and medicine was consulted for admission given the small bowel obstruction. The emergency room physician did speak with general surgery and a consult has been placed. I did discuss goals of care with the patient and he would like to be a full code. - CONSULTS | PROCEDURES Consultations: Dr. Mcguire Procedures: no procedure - HOSPITAL COURSE Hospital Course: pt was admitted for small bowel obstruction. after pt has bowel rest, NG tube for release pressure, gastric challenge treatment. pt's SBO was resolved. pt tolerated regular diet without abdominal pain, nausea or vomiting. pt had bowel movements. Surgeon d/c pt as well. the detail hospital course is as the below. (1) Small bowel obstruction resolved. pt tolerated regular diet without abdominal pain, nausea or vomiting. pt had bowel movements. Surgeon d/c pt as well. (2) Acute on chronic renal insufficiency improved. creatinine is 2.0 now from admission at 2.7 (3) History of CVA with residual deficit stable. pt has hx of CVA with left side weakness. but pt has no home meds for his CVA. now pt is prescribed aspirin and statin (4)hypokalemia resolved - ALLERGIES Allergies/Adverse Reactions: Allergies Allergy/AdvReac Type Severity Reaction Status Date / Time No Known Drug Allergies Allergy Verified 10/26/19 01:09 - MEDICATIONS Home Medications: Ambulatory Orders Medication Instructions Recorded Confirmed Aspirin [Adult Aspirin Regimen] 81 mg PO DAILY #15 tablet. 10/28/19 Atorvastatin Calcium [Lipitor] 40 mg PO QPM #15 tablet 10/28/19 - PHYSICAL EXAM AT DISCHARGE General Appearance: positive: No acute distress, Alert. negative: Lethargic Eyes Bilateral: positive: Normal inspection, PERRL, EOMI, No lid inflammation ENT: positive: ENT inspection nml, Pharynx nml, No signs of dehydration. negative: Purulent nasal drainage Neck: positive: Nml inspection, Thyroid nml, No JVD, Trachea midline. negative: Thyromegaly, Lymphadenopathy (R), Lymphadenopathy (L), Stiff neck, Tracheal deviation Respiratory: positive: Chest non-tender, No respiratory distress, Breath sounds nml. negative: Wheezes, Rales, Rhonchi Cardiovascular: positive: Regular rate & rhythm, No murmur, No gallop. negati ve: Irregularly irregular, Extrasystoles, Tachycardia, Bradycardia, Systolic murmur, Diastolic murmur Peripheral Pulses: positive: 2+ Abdomen: positive: Non-tender, No organomegaly, Nml bowel sounds, No distention. negative: Tenderness, Guarding, Rebound Back: positive: Nml inspection. negative: CVA tenderness (R), CVA tenderness (L) Skin: positive: Color nml, No rash, Warm, Dry. negative: Cyanosis, Diaphoresis, Pallor, Skin rash Extremities: positive: Non-tender, Nml appearance. negative: Calf tenderness, Lily's sign/cords Neurologic/Psychiatric: positive: Oriented x3, Weakness, Other (pt has hx of CVA, and left side weakness.). negative: Motor nml, Sensation nml, Facial droop, Slurred/abnml speech, Depressed mood/affect - LABS Result Diagrams: 10/28/19 05:18 10/28/19 12:12 - SEPSIS Current Stage of Sepsis: Ruled out - FOLLOW UP Follow Up: you had bowel movements, you tolerate regular diet, you have no abdominal pain or nausea or vomiting. your surgeon also considerate your small bowel obstruction is resolved. please keep active and eat healthy diet with more vegetable and fruits. You are prescribed Aspirin and Lipitor for your previous stroke. you may followup your PCP in 1-2 weeks. should your symptoms return or worsen, you may present ER or call 911 for help. - TIME SPENT Time Spent in Discharge (Minutes): 30
[2019-10-28 15:44] VITALS: BP 124/70
== END 2019-10-28 17:55 | disposition home or self-care (01) | DRG 389 ==
LOC: EDUNIT# → ED 23:34 → MS2 10-26 03:30
PROVIDERS: ADMIT Internal Medicine; ATTEND Nurse Practitioner Gerontology
DX: K56.609 Unspecified intestinal obstruction, unspecified as to partial versus complete obstruction (principal); N28.9 Disorder of kidney and ureter, unspecified; I69.954 Hemiplegia and hemiparesis following unspecified cerebrovascular disease affecting left non-dominant side; N17.9 Acute kidney failure, unspecified; F17.200 Nicotine dependence, unspecified, uncomplicated; E87.6 Hypokalemia; E86.0 Dehydration; N18.9 Chronic kidney disease, unspecified; F17.210 Nicotine dependence, cigarettes, uncomplicated; I69.992 Facial weakness following unspecified cerebrovascular disease; N26.1 Atrophy of kidney (terminal); N28.1 Cyst of kidney, acquired; Z72.89 Other problems related to lifestyle; Z99.3 Dependence on wheelchair
CPT/HCPCS: 36415; 74018; 74176; 74250; 80048; 80053; 81001; 83036; 83605; 83690; 83735; 84100; 84132; 85025; 85610; 85730; 87086; 93005; 96361; 96374; 99284; 99285; A9270; J7120; Q9963; 80320

== ENCOUNTER 2019-10-28 18:02 | Outpatient (CLI) | payer MEDICARE | END 2019-10-28 18:03 | disposition home or self-care (01) | LOC: EMS 18:02 | PROVIDERS: ATTEND Surgery | DX: K56.609 Unspecified intestinal obstruction, unspecified as to partial versus complete obstruction (principal); I69.354 Hemiplegia and hemiparesis following cerebral infarction affecting left non-dominant side; Z74.01 Bed confinement status | CPT/HCPCS: A0425; A0428 ==

== ENCOUNTER 2020-02-23 14:30 | Outpatient (CLI) | payer MEDICARE | END 2020-02-23 14:31 | disposition critical access hospital (66) | LOC: EMS 14:30 | PROVIDERS: ATTEND Surgery | DX: R10.30 Lower abdominal pain, unspecified (principal); R47.81 Slurred speech; R05 Cough | CPT/HCPCS: A0425; A0427 ==

== ENCOUNTER 2020-02-23 15:00 | Emergency (ER) | payer MEDICARE ==
[2020-02-23 15:27] LABS: BASOPHILS % (AUTO) 0.1 %; LYMPHOCYTES # (AUTO) 0.6 10^3/uL (1.5-3.5); LYMPHOCYTES % (AUTO) 4.4 %; MEAN CORPUSCULAR HEMOGLOBIN 29.3 pg (27.0-31.0); MEAN CORPUSCULAR HGB CONC 31.8 g/dL (32.0-36.0); MEAN PLATELET VOLUME 8.8 fL (7.4-11.4); MONOCYTES # (AUTO) 0.5 10^3/uL (0.0-1.0); MONOCYTES % (AUTO) 3.4 %; NEUTROPHILS # (AUTO) 12.8 10^3/uL (1.5-6.6); NEUTROPHILS % (AUTO) 91.5 %; PLT - PLATELET COUNT 352 10^3/uL (130-450); RED CELL DISTRIBUTION WIDTH 14.9 % (12.0-15.0); WHITE BLOOD COUNT 13.9 x10^3/uL (4.8-10.8)
[2020-02-23 15:40] LABS: INR 1.1 (0.8-1.2); PT - PROTHROMBIN TIME 12.8 secs (9.9-12.6)
[2020-02-23] MEDS: SODIUM CHLORIDE 0.9% 1,000 ML IV ONE (15:46)
[2020-02-23 15:47] LABS: ALBUMIN 2.7 g/dL (3.2-5.5); ALBUMIN/GLOBULIN RATIO 0.6 (1.0-2.2); BILIRUBIN,TOTAL 0.5 mg/dL (0.2-1.0); CALCIUM 8.4 mg/dL (8.5-10.3); CREATININE 2.4 mg/dL (0.6-1.2); CRP - C-REACTIVE PROTEIN 18.7 mg/dL (0-1.0); TOTAL PROTEIN 7.1 g/dL (6.7-8.2)
[2020-02-23 15:49] LABS: PARTIAL THROMBOPLASTIN TIME 23.7 secs (24.9-33.3)
--- NOTE | 2020-02-23 15:49 | ED Physician Documentation ---
History of Present Illness - Stated complaint Stated Complaint: AMS - Chief complaint Chief Complaint: Ext Problem - History obtained from History obtained from: Patient, EMS - History of Present Illness Pain level max: 0 Pain level now: 0 - Additonal information Additional information: 69-year-old male lives at home with his . 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 He is usually bedbound and lies on his side. Has developed a large decubitus ulcers to the left hip and left ankle. Has a cool left leg with no palpable pulses. Dark appearing toes. noticed that he may have been slurring his speech slightly this morning. It did not improve throughout the day, so she called 911. No fall. No trauma. Review of Systems Ten Systems: 10 systems reviewed and negative Constitutional: denies: Fever, Chills Ears: denies: Ear pain Nose: denies: Rhinorrhea / runny nose, Congestion Throat: denies: Sore throat Cardiac: denies: Chest pain / pressure Respiratory: denies: Cough GI: denies: Nausea, Vomiting, Diarrhea Skin: denies: Rash Musculoskeletal: denies: Neck pain, Back pain Neurologic: reports: Generalized weakness. denies: Focal weakness, Numbness, Confused, Altered mental status, Headache PD PAST MEDICAL HISTORY - Past Medical History Cardiovascular: None Respiratory: None Neuro: CVA Endocrine/Autoimmune: None GI: None : None Musculoskeletal: Hemiplegia Derm: None - Past Surgical History Past Surgical History: No - Present Medications Home Medications: Ambulatory Orders Medication Instructions Recorded Confirmed No Known Home Medications 02/23/20 02/23/20 - Allergies Allergies/Adverse Reactions: Allergies Allergy/AdvReac Type Severity Reaction Status Date / Time No Known Drug Allergies Allergy Verified 02/23/20 15:16 - Social History Does the pt smoke?: Yes Smoking Status: Current every day smoker Does the pt drink ETOH?: No Does the pt have substance abuse?: No - Immunizations Immunizations are current?: Yes - POLST Patient has POLST: No PD ED PE NORMAL - Vitals Vital signs reviewed: Yes - General General: Alert and oriented X 3, No acute distress, Other (Thin, cachectic male, Contracted left arm and left lower extremity) - HEENT HEENT: PERRL, Moist mucous membranes - Neck Neck: Supple, no meningeal sign - Cardiac Cardiac: RRR, Strong equal pulses - Respiratory Respiratory: No respiratory distress, Clear bilaterally - Abdomen Abdomen: Soft, Non tender, Non distended - Derm Derm: Warm and dry, Other (Feces smeared on the abdomen and chest wall) - Extremities Extremities: Other (Large pressure sores to the lateral malleus left ankle. This appears to be deep. Also has a large pressure ulcer to the left hip down into the muscle. Also has gangrenous appearing toes on the left foot. Has nonhealing wounds to the aspect of the left tibia. ) - Neuro Neuro: Alert and oriented X 3 - Psych Psych: Normal mood, Normal affect Results - Vitals Vitals: Vital Signs - 24 hr 02/23/20 02/23/20 02/23/20 15:00 15:17 15:18 Temperature 36.8 C Heart Rate 105 H 96 95 Respiratory 20 Rate Blood Pressure 123/70 O2 Saturation 97 02/23/20 02/23/20 02/23/20 15:30 16:00 16:30 Temperature Heart Rate 96 93 97 Respiratory 12 18 19 Rate Blood Pressure 101/85 H 101/71 110/66 O2 Saturation 100 98 97 02/23/20 17:00 Temperature Heart Rate 105 H Respiratory 19 Rate Blood Pressure 139/74 H O2 Saturation 100 Oxygen O2 Source Room air - Labs Labs: Laboratory Tests 02/23/20 02/23/20 02/23/20 15:15 15:15 15:15 WBC 13.9 H RBC 4.10 L Hgb 12.0 L Hct 37.7 L MCV 92.0 MCH 29.3 MCHC 31.8 L RDW 14.9 Plt Count 352 MPV 8.8 Neut # (Auto) 12.8 H Lymph # (Auto) 0.6 L [place] # (Auto) 0.5 Eos # (Auto) 0.0 Baso # (Auto) 0.0 Absolute Nucleated RBC 0.00 Nucleated RBC % 0.0 ESR PT 12.8 H INR 1.1 APTT 23.7 L Sodium 134 L Potassium 4.4 Chloride 107 Carbon Dioxide 16 L Anion Gap 11.0 BUN 77 H Creatinine 2.4 H Estimated GFR (MDRD) 27 L Glucose 115 H Calcium 8.4 L Total Bilirubin 0.5 AST 49 H ALT 30 Alkaline Phosphatase 87 C-Reactive Protein 18.7 H Total Protein 7.1 Albumin 2.7 L Globulin 4.4 H Albumin/Globulin Ratio 0.6 L Lipase 22 Urine Color Urine Clarity Urine pH Ur Specific [place] Urine Protein Urine Glucose (UA) Urine Ketones Urine Occult Blood Urine Nitrite Urine Bilirubin Urine Urobilinogen Ur Leukocyte Esterase Urine RBC Urine WBC Urine WBC Clumps Ur Squamous Epith Cells Urine Bacteria Ur Microscopic Review Urine Culture Comments 02/23/20 02/23/20 15:15 17:15 WBC RBC Hgb Hct MCV MCH MCHC RDW Plt Count MPV Neut # (Auto) Lymph # (Auto) [place] # (Auto) Eos # (Auto) Baso # (Auto) Absolute Nucleated RBC Nucleated RBC % ESR 32 H PT INR APTT Sodium Potassium Chloride Carbon Dioxide Anion Gap BUN Creatinine Estimated GFR (MDRD) Glucose Calcium Total Bilirubin AST ALT Alkaline Phosphatase C-Reactive Protein Total Protein Albumin Globulin Albumin/Globulin Ratio Lipase Urine Color LIGHT YELLOW Urine Clarity TURBID Urine pH 6.0 Ur Specific [place] 1.025 Urine Protein 100 H Urine Glucose (UA) NEGATIVE Urine Ketones TRACE Urine Occult Blood LARGE H Urine Nitrite POSITIVE H Urine Bilirubin NEGATIVE Urine Urobilinogen 0.2 (NORMAL) Ur Leukocyte Esterase LARGE H Urine RBC 6-10 H Urine WBC >25 H Urine WBC Clumps PRESENT Ur Squamous Epith Cells NONE SEEN Urine Bacteria Many H Ur Microscopic Review INDICATED Urine Culture Comments INDICATED - Rads (name of study) Duplex ultrasound left lower extremity, arterial Radiology: Prelim report reviewed, EMP read contemporaneously PD MEDICAL DECISION MAKING - ED course Complexity details: reviewed results, re-evaluated patient, considered differential, d/w patient, d/w renewable energy consultant ED course: 69-year-old male presents to the emergency department with significant pressure ulcers to the left lateral malleolus as well as the left buttock. Has gangrenous appearing toes and large necrotic skin to the left heel. No palpable pulses in the left lower extremity. 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 I discussed the case with [address] in [place] vascular surgery who recommends a CT abdomen angios with runoff. This was ordered and will be performed prior to transfer. The disc of images will be sent with the patient. I also discussed the case with Dr. Stout, emergency department physician at [facility] in [place] who graciously accepts at 1720. Vancomycin and Zosyn were ordered of p.m. These were not hung by the nursing staff until approximately 1830 when the patient was being transferred. Angiogram of the lower extremity was unable to be performed here. This will need to be performed at [facility] in [place]. There were issues getting his legs in the view on the CAT scan secondary to contractures. FINDINGS: Left lower extremity arterial vasculature appears occluded, with the exception of mild focal reconstitution of flow from collateralization at the proximal superficial femoral artery and at the proximal profunda femoral artery. Popliteal artery and dorsalis pedis artery not visualized. Scattered vascular calcifications are also visualized. Left Leg: CORPORATE COMPLIANCE MANAGER: Occluded. PSFA: PSV 17 cm/sec. Monophasic waveform. MSFA: Occluded. DSFA: Occluded. PFA: PSV 27 cm/sec. Monophasic waveform. POP: Not seen. NAZARIO: Occluded. SKILLED NURSING FACILITIES PROFESSIONAL: Occluded. PER: Occluded. DPA: Not seen. IMPRESSION: 1. Occluded appearing left lower extremity arterial vasculature from the level of the common femoral artery, as described above. 2. Small amount of focal reconstitution of flow from collateralization at the proximal superficial femoral artery and also at the proximal profunda femoral artery. Critical results discussed with Dr. Vasquez at approximately 4:46 PM on 02/23/2020. Departure - Departure Disposition: 02 Transfer Acute Care Hosp Clinical Impression: Arterial occlusion Pressure ulcer Qualifiers: Pressure injury location: unspecified location Pressure injury stage: unspecified pressure injury stage Qualified Code(s): L89.90 - Pressure ulcer of unspecified site, unspecified stage Condition: Stable
--- NOTE | 2020-02-23 16:51 | Ultrasound Report ---
Reason: L LE pale, cold, possible arterial occlusion Procedure Date: 02/23/2020 Accession Number: [id number] / [id number] Procedure: US - Duplex Lwr Ext Arterial LT CPT Code: Final Report FULL RESULT: EXAM: LEFT LOWER EXTREMITY ARTERIAL DOPPLER ULTRASOUND EXAM DATE: 02/23/2020 04:14 PM. CLINICAL HISTORY: Left lower extremity pale, cold, possible arterial occlusion. COMPARISON: None. TECHNIQUE: Real-time sonographic vascular imaging was performed by the dye blender, utilizing color-flow, Doppler flow, and spectral analysis. Multiple medical customer service representative static images were saved for review. FINDINGS: Left lower extremity arterial vasculature appears occluded, with the exception of mild focal reconstitution of flow from collateralization at the proximal superficial femoral artery and at the proximal profunda femoral artery. Popliteal artery and dorsalis pedis artery not visualized. Scattered vascular calcifications are also visualized. Left Leg: ROVING FRAME TENDER: Occluded. PSFA: PSV 17 cm/sec. Monophasic waveform. MSFA: Occluded. DSFA: Occluded. PFA: PSV 27 cm/sec. Monophasic waveform. POP: Not seen. NAZARIO: Occluded. DIAMOND DIE MAKER: Occluded. PER: Occluded. DPA: Not seen. IMPRESSION: 1. Occluded appearing left lower extremity arterial vasculature from the level of the common femoral artery, as described above. 2. Small amount of focal reconstitution of flow from collateralization at the proximal superficial femoral artery and also at the proximal profunda femoral artery. Critical results discussed with Dr. Vasquez at approximately 4:46 PM on 02/23/2020. [facility]
[2020-02-23 17:23] LABS: GLUCOSE, URINE (UA) NEGATIVE (NEGATIVE); KETONES,URINE (UA) TRACE mg/dL (NEGATIVE); LEUKOCYTE ESTERASE, URINE LARGE (NEGATIVE); NITRITE,URINE POSITIVE (NEGATIVE); OCCULT BLOOD,URINE LARGE (NEGATIVE); PROTEIN,URINE 100 mg/dL (NEGATIVE); UROBILINOGEN,URINE 0.2 (NORMAL) E.U./dL (NORMAL)
[2020-02-23 17:24] LABS: CLARITY,URINE TURBID (CLEAR)
[2020-02-23] MEDS ORDERED: IOVERSOL 320 100 ML VIAL IVP ONE (17:25)
[2020-02-23 17:30] LABS: BILIRUBIN,URINE NEGATIVE (NEGATIVE); ICTOTEST,URINE NEGATIVE
[2020-02-23 17:31] LABS: BACTERIA,URINE Many /HPF (None Seen); SQUAMOUS EPITHELIAL CELL,UR NONE SEEN (<= Few); WBC CLUMPS,URINE PRESENT
[2020-02-23] MEDS: HEPARIN 5,000 UNIT/ML VIAL IVP STA (18:00)
[2020-02-23] MEDS: VANCOMYCIN INJ 1 GM in SODIUM CHLORIDE 0.9% 500 ML IV STA (18:34)
[2020-02-23] MEDS: PIPERACILLIN/TAZOBACTAM 3.375 GM in SODIUM CHLORIDE 0.9% MINIBAG 100 ML IV STA (18:34)
[2020-02-23] MEDS: HEPARIN 25000UNITS/500ML (D5W) 25,000 UNIT/500 ML BAG IV STA (18:34)
[2020-02-23 18:37] VITALS: BP 125/93
== END 2020-02-23 18:34 | disposition short-term general hospital (02) ==
LOC: EDUNIT# → ED 15:00
DX: I70.243 Atherosclerosis of native arteries of left leg with ulceration of ankle (principal); L89.224 Pressure ulcer of left hip, stage 4; I96 Gangrene, not elsewhere classified; I69.354 Hemiplegia and hemiparesis following cerebral infarction affecting left non-dominant side; F17.200 Nicotine dependence, unspecified, uncomplicated
CPT/HCPCS: 36415; 80053; 81001; 81003; 83690; 85025; 85610; 85651; 85730; 86140; 87077; 87086; 87181; 96374; 96376; 99284

== ENCOUNTER 2020-02-23 18:35 | Outpatient (CLI) | payer MEDICARE | END 2020-02-23 18:36 | disposition short-term general hospital (02) | LOC: EMS 18:35 | PROVIDERS: ATTEND Surgery | DX: I70.312 Atherosclerosis of unspecified type of bypass graft(s) of the extremities with intermittent claudication, left leg (principal) | CPT/HCPCS: A0425; A0426 ==